=== PATIENT | male | born 1950 | race African-American/Black ===

== ENCOUNTER 2017-07-12 05:48 | Emergency (ER) | payer MEDICARE, OTHER ==
[~2017-07-12] VITALS: Ht 167.6 cm; Wt 77.0 kg
[2017-07-12 07:36] LABS: BASOPHILS % 1.1 % (0.0-2.0); EOSINOPHILS % 3.6 % (0.0-5.0); HEMATOCRIT. 27.1 % (42.0-52.0); HEMOGLOBIN. 8.9 g/dL (14.0-18.0); LYMPHOCYTES % 32.3 % (20.0-50.0); MEAN CORPUSCULAR HEMOGLOBIN 31.7 pg (28.0-32.0); MEAN CORPUSCULAR VOLUME 95.8 fL (80.0-94.0); MEAN PLATELET VOLUME 7.4 fl (7.4-10.4); MONOCYTES % 11.1 % (2.0-8.0); NEUTROPHILS % 51.9 % (40.0-76.0); PLATELET 76 x1000/uL (130-400); RED BLOOD CELL COUNT 2.82 mill/uL (4.7-6.1); RED CELL DISTRIBUTION WIDTH 14.1 % (11.6-14.6)
[2017-07-12 07:43] LABS: CHLORIDE 113 mEq/L (98-107)
[2017-07-12 08:03] LABS: CARBON DIOXIDE 27 mEq/L (21-32)
[2017-07-12 09:03] VITALS: BP 131/69
== END 2017-07-12 09:15 | disposition home or self-care (01) ==
LOC: ER 05:48
DX: S09.8XXA Other specified injuries of head, initial encounter (principal); E11.22 Type 2 diabetes mellitus with diabetic chronic kidney disease; E11.649 Type 2 diabetes mellitus with hypoglycemia without coma; D61.818 Other pancytopenia; I12.9 Hypertensive chronic kidney disease with stage 1 through stage 4 chronic kidney disease, or unspecified chronic kidney disease; N18.9 Chronic kidney disease, unspecified; W18.39XA Other fall on same level, initial encounter; Y93.89 Activity, other specified; Y92.89 Other specified places as the place of occurrence of the external cause; Y99.8 Other external cause status
CPT/HCPCS: 36415; 80053; 82962; 85025; 99284

== ENCOUNTER 2018-08-08 11:18 | Inpatient (IN) | payer MEDICARE, OTHER ==
[~2018-08-08] VITALS: Ht 175.3 cm; Wt 78.0 kg
[~2018-08-08 11:18] MED LIST: ATEN50TA MT; ATOR20TA65 MT; ATROV3 BOTHNSTRLS; BACL-141 MT; CALC1TAB17 MT; ERGO2000 PO; GABA-531 MT; GLIP10TA10 MT; HYDR100T26 MT; LACT10SO6 MT; MORP10CA8 PO; OXYC-515 MT; SOFO1TAB PO; TRAZ-213 MT
[2018-08-08] MEDS ORDERED: SODIUM CHLORIDE 0.9% 1,000 ML IV ONE (11:43)
[2018-08-08 12:31] LABS: CHLORIDE 107 mEq/L (98-107)
[2018-08-08 12:32] LABS: INR 1.1; PROTHROMBIN TIME 11.3 sec (9.1-11.1)
[2018-08-08 12:42] LABS: BASOPHILS % 1.2 % (0.0-2.0); EOSINOPHILS % 12.9 % (0.0-5.0); HEMATOCRIT. 30.1 % (42.0-52.0); HEMOGLOBIN. 9.8 g/dL (14.0-18.0); LYMPHOCYTES % 19.7 % (20.0-50.0); MEAN CORPUSCULAR HEMOGLOBIN 32.5 pg (28.0-32.0); MEAN CORPUSCULAR VOLUME 99.7 fL (80.0-94.0); MEAN PLATELET VOLUME 8.6 fl (7.4-10.4); MONOCYTES % 6.8 % (2.0-8.0); NEUTROPHILS % 59.4 % (40.0-76.0); PLATELET 64 x1000/uL (130-400); RED BLOOD CELL COUNT 3.01 mill/uL (4.7-6.1); RED CELL DISTRIBUTION WIDTH 17.4 % (11.6-14.6)
[2018-08-08 13:09] LABS: CLARITY URINE CLEAR (CLEAR); COLOR URINE YELLOW (YELLOW); KETONES URINE NEGATIVE (NEGATIVE); LEUKOCYTE ESTERASE URINE NEGATIVE (NEGATIVE); NITRITE URINE NEGATIVE (NEGATIVE); OCCULT BLOOD URINE NEGATIVE (NEGATIVE); PROTEIN URINE 2+ (NEGATIVE); SPECIFIC GRAVITY URINE 1.013 (1.005-1.030)
[2018-08-08] MEDS ORDERED: PIPERACILLIN/TAZ 3.375G PREMIX 50 ML IV ONE (13:30)
[2018-08-08] MEDS ORDERED: VANCOMYCIN 1 G PREMIX 200 ML IV ONE (13:30)
[2018-08-08 16:00] VITALS: BP 168/83
[2018-08-08 16:01] VITALS: BP 168/83
[2018-08-08] MEDS ORDERED: CLON0.1T PO (16:30)
[2018-08-08] MEDS ORDERED: METO-539 PO (16:30)
[2018-08-08] MEDS ORDERED: CYAN500T47 MT (16:30)
[2018-08-08 18:00] VITALS: BP 162/84
[2018-08-08] MEDS ORDERED: GUAIFENESIN 200MG/10ML SUGAR FREE UDC PO PRN (18:15)
[2018-08-08] MEDS ORDERED: PIPERACILLIN/TAZ 3.375G PREMIX 50 ML IV SCH (18:15)
[2018-08-08] MEDS ORDERED: ACETAMINOPHEN 325MG TABLET PO PRN (18:15)
[2018-08-08] MEDS ORDERED: DIPHENHYDRAMINE 50MG/ML VIAL IV PRN (18:15)
[2018-08-08] MEDS ORDERED: MAGNESIUM/ALUMINUM HYDROXIDE/SIMETHICONE 30ML UDC PO PRN (18:15)
[2018-08-08] MEDS ORDERED: DEXTROSE 50% WATER 50ML SYRINGE IV PRN (18:15)
[2018-08-08] MEDS ORDERED: DOCUSATE SODIUM 100MG CAPSULE PO PRN (18:15)
[2018-08-08] MEDS ORDERED: IPRATROPIUM/ALBUTEROL 0.5-3(2.5)MG/3ML NEB INH PRN (18:15)
[2018-08-08] MEDS ORDERED: ONDANSETRON HCL 4MG/2ML INJ IV PRN (18:15)
[2018-08-08] MEDS ORDERED: ENOXAPARIN 40MG/0.4ML SYR SUBCUT SCH (18:15)
[2018-08-08 20:00] VITALS: BP 162/77
[2018-08-08] MEDS ORDERED: ENOXAPARIN 30MG/0.3ML SYR SUBCUT SCH (21:00)
[2018-08-08 22:00] VITALS: BP 188/82
[2018-08-08] MEDS: CLONIDINE 0.1MG TABLET PO PRN (22:24)
[2018-08-08] MEDS: INSULIN LISPRO 100 UNITS/ML SUBCUT SCH (22:35)
[2018-08-08] MEDS: BLOOD SUGAR DIAGNOSTIC STRIP TEST SCH (22:35)
[2018-08-08] MEDS: PIPERACILLIN/TAZ 2.25G PREMIX 50 ML IV SCH (22:52)
[2018-08-08] MEDS: SODIUM CHLORIDE 0.9% INJ 3ML FLUSH IVF SCH (22:52)
[2018-08-09] VITALS (11 sets, daily range): BP systolic 109–167; BP diastolic 52–96
[2018-08-09 00:06] LABS: CREATINE KINASE MB FRACTION 2.1 ng/mL (0.5-3.6)
[2018-08-09 06:04] LABS: HEMATOCRIT. 27.1 % (42.0-52.0); HEMOGLOBIN. 8.9 g/dL (14.0-18.0); MEAN CORPUSCULAR HEMOGLOBIN 32.2 pg (28.0-32.0); MEAN CORPUSCULAR VOLUME 98.8 fL (80.0-94.0); MEAN PLATELET VOLUME 8.4 fl (7.4-10.4); PLATELET 57 x1000/uL (130-400); RED BLOOD CELL COUNT 2.75 mill/uL (4.7-6.1); RED CELL DISTRIBUTION WIDTH 17.5 % (11.6-14.6)
[2018-08-09 06:20] LABS: CHLORIDE 109 mEq/L (98-107)
[2018-08-09 06:29] LABS: LDL CHOLESTEROL 38 mg/dL (5-100)
[2018-08-09 06:31] LABS: CREATINE KINASE 79 IU/L (39-308); CREATINE KINASE MB FRACTION 2.2 ng/mL (0.5-3.6); T4 FREE 1.03 ng/dL (0.76-1.46)
[2018-08-09 06:32] LABS: HDL CHOLESTEROL 34 mg/dL (40-59)
[2018-08-09] MEDS: PIPERACILLIN/TAZ 2.25G PREMIX 50 ML IV SCH ×3 (07:14→21:27)
[2018-08-09] MEDS: SODIUM CHLORIDE 0.9% INJ 3ML FLUSH IVF SCH ×3 (07:15→21:27)
[2018-08-09] MEDS: INSULIN LISPRO 100 UNITS/ML SUBCUT SCH ×4 (07:44→21:52)
[2018-08-09] MEDS: BLOOD SUGAR DIAGNOSTIC STRIP TEST SCH ×4 (07:44→21:00)
[2018-08-09 08:06] LABS: PLATELET ESTIMATE DECREASED
[2018-08-09] MEDS ORDERED: ASPIRIN 81MG EC TABLET PO SCH (09:00)
[2018-08-09 11:59] LABS: T4 FREE 1.04 ng/dL (0.76-1.46)
[2018-08-09] MEDS: LORAZEPAM 2MG/ML CPJ IV PRN (12:50)
[2018-08-09] MEDS: HYDROMORPHONE HCL/PF 2MG/ML CPJ IV PRN (13:34)
[2018-08-09] MEDS ORDERED: VANCOMYCIN 1 G PREMIX 200 ML IV SCH (15:00)
[2018-08-09] MEDS ORDERED: METHYLPREDNISOLONE SOD SUCC 125 MG/2 ML VIAL IV NR (16:00)
[2018-08-09] MEDS ORDERED: DIATR MEGLU/DIATRIZOATE SOLN 30ML PO NR (16:00)
[2018-08-09 16:45] LABS: CREATINE KINASE MB FRACTION 3.1 ng/mL (0.5-3.6)
[2018-08-09] MEDS: HYDROCODONE/ACETAMINOPHEN 10/325MG TABLET PO PRN (21:27)
[2018-08-09] MEDS: ENOXAPARIN 80MG/0.8ML SYR SUBCUT SCH (22:09)
[2018-08-10] VITALS (10 sets, daily range): BP systolic 129–186; BP diastolic 65–118
[2018-08-10] LABS: CREATINE KINASE 153 IU/L (39-308)
[2018-08-10] MEDS: LORAZEPAM 2MG/ML CPJ IV PRN ×2 (00:02→21:31)
[2018-08-10] MEDS: HYDROMORPHONE HCL/PF 2MG/ML CPJ IV PRN ×2 (06:21→15:19)
[2018-08-10] MEDS: PIPERACILLIN/TAZ 2.25G PREMIX 50 ML IV SCH ×3 (06:21→21:32)
[2018-08-10] MEDS: SODIUM CHLORIDE 0.9% INJ 3ML FLUSH IVF SCH ×3 (06:21→21:32)
[2018-08-10 07:12] LABS: CHLORIDE 103 mEq/L (98-107)
[2018-08-10 07:17] LABS: BASOPHILS % 0.3 % (0.0-2.0); EOSINOPHILS % 0.4 % (0.0-5.0); HEMATOCRIT. 32.4 % (42.0-52.0); HEMOGLOBIN. 10.7 g/dL (14.0-18.0); LYMPHOCYTES % 17.3 % (20.0-50.0); MEAN CORPUSCULAR HEMOGLOBIN 32.7 pg (28.0-32.0); MEAN CORPUSCULAR VOLUME 98.6 fL (80.0-94.0); MEAN PLATELET VOLUME 8.3 fl (7.4-10.4); MONOCYTES % 1.8 % (2.0-8.0); NEUTROPHILS % 80.2 % (40.0-76.0); PLATELET 59 x1000/uL (130-400); RED BLOOD CELL COUNT 3.28 mill/uL (4.7-6.1); RED CELL DISTRIBUTION WIDTH 17.3 % (11.6-14.6)
[2018-08-10] MEDS: BLOOD SUGAR DIAGNOSTIC STRIP TEST SCH ×4 (07:30→21:00)
[2018-08-10 07:32] LABS: CREATINE KINASE 126 IU/L (39-308)
[2018-08-10 07:35] LABS: CREATINE KINASE MB FRACTION 2.6 ng/mL (0.5-3.6)
[2018-08-10] MEDS: INSULIN LISPRO 100 UNITS/ML SUBCUT SCH ×4 (08:18→22:13)
[2018-08-10] MEDS: NIFEDIPINE XL 30MG TAB PO SCH (10:03)
[2018-08-10] MEDS: HYDROCODONE/ACETAMINOPHEN 10/325MG TABLET PO PRN ×2 (11:15→19:18)
[2018-08-10] MEDS ORDERED: HYDRALAZINE HCL 25MG TABLET PO SCH (14:00)
[2018-08-10 14:04] LABS: *AMPHETAMINES SCREEN URINE NEGATIVE (NEGATIVE); *BARBITURATES SCREEN URINE NEGATIVE (NEGATIVE); *BENZODIAZEPINES SCREEN URINE NEGATIVE (NEGATIVE); *COCAINE SCREEN URINE NEGATIVE (NEGATIVE); METHADONE URINE SCREEN NEGATIVE (NEGATIVE)
[2018-08-10 14:05] LABS: CANNABINOID URINE SCREEN NEGATIVE (NEGATIVE); OPIATES URINE SCREEN PRESUMTIVE POSITIVE (NEGATIVE); PHENCYCLIDINE URINE SCREEN NEGATIVE (NEGATIVE)
[2018-08-10] MEDS: HYDRALAZINE HCL 50MG TABLET PO SCH (21:31)
[2018-08-10] MEDS: ENOXAPARIN 80MG/0.8ML SYR SUBCUT SCH (21:31)
[2018-08-11] VITALS: BP 111/50
[2018-08-11] MEDS: LORAZEPAM 2MG/ML CPJ IV PRN ×2 (01:48→21:19)
[2018-08-11 04:00] VITALS: BP 112/52
[2018-08-11] MEDS: SODIUM CHLORIDE 0.9% INJ 3ML FLUSH IVF SCH ×3 (05:14→21:18)
[2018-08-11 05:55] LABS: BASOPHILS % 0.8 % (0.0-2.0); EOSINOPHILS % 3.2 % (0.0-5.0); HEMATOCRIT. 26.2 % (42.0-52.0); HEMOGLOBIN. 8.5 g/dL (14.0-18.0); LYMPHOCYTES % 27.1 % (20.0-50.0); MEAN CORPUSCULAR HEMOGLOBIN 32.1 pg (28.0-32.0); MEAN CORPUSCULAR VOLUME 98.9 fL (80.0-94.0); MEAN PLATELET VOLUME 8.1 fl (7.4-10.4); MONOCYTES % 7.6 % (2.0-8.0); NEUTROPHILS % 61.3 % (40.0-76.0); PLATELET 55 x1000/uL (130-400); RED BLOOD CELL COUNT 2.65 mill/uL (4.7-6.1); RED CELL DISTRIBUTION WIDTH 17.4 % (11.6-14.6)
[2018-08-11] MEDS: HYDRALAZINE HCL 50MG TABLET PO SCH ×3 (06:00→21:18)
[2018-08-11] MEDS: PIPERACILLIN/TAZ 2.25G PREMIX 50 ML IV SCH ×3 (06:06→21:18)
[2018-08-11 08:00] VITALS: BP 134/66
[2018-08-11] MEDS: INSULIN LISPRO 100 UNITS/ML SUBCUT SCH ×4 (08:00→21:19)
[2018-08-11] MEDS: BLOOD SUGAR DIAGNOSTIC STRIP TEST SCH ×4 (08:05→21:18)
[2018-08-11] MEDS: NIFEDIPINE XL 30MG TAB PO SCH (08:10)
[2018-08-11] MEDS: HYDROCODONE/ACETAMINOPHEN 10/325MG TABLET PO PRN (08:15)
[2018-08-11 12:00] VITALS: BP 144/80
[2018-08-11] MEDS: HYDROMORPHONE HCL/PF 2MG/ML CPJ IV PRN ×2 (12:27→18:00)
[2018-08-11 16:00] VITALS: BP 165/81
[2018-08-11] MEDS ORDERED: VANCOMYCIN 1 G PREMIX 200 ML IV NR (18:00)
[2018-08-11 20:00] VITALS: BP 185/67
[2018-08-11] MEDS: ENOXAPARIN 80MG/0.8ML SYR SUBCUT SCH (21:18)
[2018-08-12] VITALS: BP 124/58
[2018-08-12 04:00] VITALS: BP 162/92
[2018-08-12] MEDS: HYDROMORPHONE HCL/PF 2MG/ML CPJ IV PRN ×3 (04:54→15:15)
[2018-08-12] MEDS: HYDRALAZINE HCL 50MG TABLET PO SCH (05:58)
[2018-08-12] MEDS: SODIUM CHLORIDE 0.9% INJ 3ML FLUSH IVF SCH ×3 (05:58→22:31)
[2018-08-12] MEDS: PIPERACILLIN/TAZ 2.25G PREMIX 50 ML IV SCH ×3 (05:58→22:31)
[2018-08-12] MEDS: BLOOD SUGAR DIAGNOSTIC STRIP TEST SCH ×4 (07:30→21:00)
[2018-08-12 08:00] VITALS: BP 143/68
[2018-08-12] MEDS: INSULIN LISPRO 100 UNITS/ML SUBCUT SCH ×4 (08:00→21:00)
[2018-08-12] MEDS: NIFEDIPINE XL 30MG TAB PO SCH (10:04)
[2018-08-12 12:00] VITALS: BP 176/76
[2018-08-12] MEDS: HYDRALAZINE 20MG/ML VIAL IV PRN (13:28)
[2018-08-12] MEDS: HYDRALAZINE HCL 25MG TABLET PO SCH ×2 (15:14→22:32)
[2018-08-12 15:35] VITALS: BP 146/63
[2018-08-12 22:00] VITALS: BP 159/59
[2018-08-12] MEDS: LORAZEPAM 2MG/ML CPJ IV PRN (22:32)
[2018-08-12] MEDS: ENOXAPARIN 80MG/0.8ML SYR SUBCUT SCH (22:32)
[2018-08-13] VITALS: BP 145/56
[2018-08-13] MEDS: HYDROMORPHONE HCL/PF 2MG/ML CPJ IV PRN ×3 (00:27→09:14)
[2018-08-13 04:00] VITALS: BP 144/61
[2018-08-13] MEDS: HYDRALAZINE HCL 25MG TABLET PO SCH ×2 (05:06→13:04)
[2018-08-13] MEDS: PIPERACILLIN/TAZ 2.25G PREMIX 50 ML IV SCH ×3 (05:06→22:01)
[2018-08-13] MEDS: SODIUM CHLORIDE 0.9% INJ 3ML FLUSH IVF SCH ×3 (05:06→22:01)
[2018-08-13] MEDS: INSULIN LISPRO 100 UNITS/ML SUBCUT SCH ×4 (06:34→21:00)
[2018-08-13] MEDS: BLOOD SUGAR DIAGNOSTIC STRIP TEST SCH ×4 (06:34→21:56)
[2018-08-13 07:49] LABS: BASOPHILS % 1.1 % (0.0-2.0); EOSINOPHILS % 11.4 % (0.0-5.0); HEMATOCRIT. 31.9 % (42.0-52.0); HEMOGLOBIN. 10.3 g/dL (14.0-18.0); LYMPHOCYTES % 33.3 % (20.0-50.0); MEAN CORPUSCULAR VOLUME 99.1 fL (80.0-94.0); MEAN PLATELET VOLUME 9.6 fl (7.4-10.4); MONOCYTES % 7.7 % (2.0-8.0); NEUTROPHILS % 46.5 % (40.0-76.0); PLATELET 100 x1000/uL (130-400); RED BLOOD CELL COUNT 3.22 mill/uL (4.7-6.1); RED CELL DISTRIBUTION WIDTH 17.9 % (11.6-14.6)
[2018-08-13 08:00] VITALS: BP 114/68
[2018-08-13] MEDS: NIFEDIPINE XL 30MG TAB PO SCH (09:10)
[2018-08-13] MEDS: LORAZEPAM 2MG/ML CPJ IV PRN (11:39)
[2018-08-13 12:00] VITALS: BP 166/101
[2018-08-13 16:00] VITALS: BP 143/62
[2018-08-13 20:00] VITALS: BP 157/67
[2018-08-13] MEDS ORDERED: VANCOMYCIN 1 G PREMIX 200 ML IV SCH (21:00)
[2018-08-13] MEDS: ENOXAPARIN 80MG/0.8ML SYR SUBCUT SCH (22:01)
[2018-08-14] VITALS: BP 167/80
[2018-08-14] MEDS: HYDRALAZINE HCL 25MG TABLET PO SCH ×4 (00:24→21:07)
[2018-08-14 04:00] VITALS: BP 149/81
[2018-08-14] MEDS: PIPERACILLIN/TAZ 2.25G PREMIX 50 ML IV SCH ×3 (06:04→21:07)
[2018-08-14] MEDS: SODIUM CHLORIDE 0.9% INJ 3ML FLUSH IVF SCH ×3 (06:04→21:07)
[2018-08-14] MEDS: BLOOD SUGAR DIAGNOSTIC STRIP TEST SCH ×4 (06:14→21:23)
[2018-08-14] MEDS: INSULIN LISPRO 100 UNITS/ML SUBCUT SCH ×4 (06:14→21:00)
[2018-08-14 08:00] VITALS: BP 195/82
[2018-08-14] MEDS: NIFEDIPINE XL 30MG TAB PO SCH (09:00)
[2018-08-14] MEDS: LORAZEPAM 2MG/ML CPJ IV PRN (10:55)
[2018-08-14 12:00] VITALS: BP 211/77
[2018-08-14] MEDS: HYDRALAZINE 20MG/ML VIAL IV PRN (12:57)
[2018-08-14 15:16] VITALS: BP 167/67
[2018-08-14 20:00] VITALS: BP 182/53
[2018-08-14] MEDS ORDERED: VANCOMYCIN 1 G PREMIX 200 ML IV NR (21:00)
[2018-08-14] MEDS: ENOXAPARIN 80MG/0.8ML SYR SUBCUT SCH (21:07)
[2018-08-15] VITALS: BP 181/52
[2018-08-15] MEDS: HYDRALAZINE 20MG/ML VIAL IV PRN (00:58)
[2018-08-15 04:00] VITALS: BP 179/151
[2018-08-15] MEDS: PIPERACILLIN/TAZ 2.25G PREMIX 50 ML IV SCH ×3 (05:55→21:16)
[2018-08-15] MEDS: SODIUM CHLORIDE 0.9% INJ 3ML FLUSH IVF SCH ×3 (05:56→21:37)
[2018-08-15] MEDS: HYDRALAZINE HCL 25MG TABLET PO SCH ×3 (05:56→21:15)
[2018-08-15] MEDS: BLOOD SUGAR DIAGNOSTIC STRIP TEST SCH ×4 (06:35→21:22)
[2018-08-15] MEDS: INSULIN LISPRO 100 UNITS/ML SUBCUT SCH ×4 (06:35→21:29)
[2018-08-15 08:00] VITALS: BP 197/88
[2018-08-15] MEDS: NIFEDIPINE XL 30MG TAB PO SCH (09:00)
[2018-08-15 11:44] LABS: BASOPHILS % 1.1 % (0.0-2.0); EOSINOPHILS % 0.3 % (0.0-5.0); HEMATOCRIT. 29.7 % (42.0-52.0); HEMOGLOBIN. 10.1 g/dL (14.0-18.0); LYMPHOCYTES % 17.4 % (20.0-50.0); MEAN CORPUSCULAR HEMOGLOBIN 33.5 pg (28.0-32.0); MEAN CORPUSCULAR VOLUME 98.8 fL (80.0-94.0); MEAN PLATELET VOLUME 7.8 fl (7.4-10.4); MONOCYTES % 7.2 % (2.0-8.0); PLATELET 81 x1000/uL (130-400); RED BLOOD CELL COUNT 3.01 mill/uL (4.7-6.1); RED CELL DISTRIBUTION WIDTH 18.2 % (11.6-14.6)
[2018-08-15 12:00] VITALS: BP 167/89
[2018-08-15] MEDS ORDERED: HEPARIN SODIUM 1,000 UNIT/1ML VIAL IV SCH (12:00)
[2018-08-15 16:06] VITALS: BP 206/79
[2018-08-15] MEDS ORDERED: MULTIVITAMINS,THER W-MINERALS TABLET PO SCH (16:15)
[2018-08-15] MEDS ORDERED: ZINC SULFATE 220 MG ( 50 ) CAPSULE PO SCH (16:15)
[2018-08-15] MEDS: THIAMINE HCL 100MG TABLET PO SCH (16:40)
[2018-08-15 20:44] VITALS: BP 187/77
[2018-08-15] MEDS ORDERED: ASCORBIC ACID 250 MG TABLET PO SCH (21:00)
[2018-08-15] MEDS: CLONIDINE 0.1MG TABLET PO PRN (21:15)
[2018-08-15] MEDS: LORAZEPAM 2MG/ML CPJ IV PRN (21:15)
[2018-08-15] MEDS: ENOXAPARIN 80MG/0.8ML SYR SUBCUT SCH (21:16)
[2018-08-16 00:21] VITALS: BP 141/56
[2018-08-16] MEDS: LORAZEPAM 2MG/ML CPJ IV PRN ×2 (02:49→09:36)
[2018-08-16 04:00] VITALS: BP 164/51
[2018-08-16] MEDS: HYDRALAZINE HCL 25MG TABLET PO SCH (06:20)
[2018-08-16] MEDS: BLOOD SUGAR DIAGNOSTIC STRIP TEST SCH (06:59)
[2018-08-16] MEDS: SODIUM CHLORIDE 0.9% INJ 3ML FLUSH IVF SCH (06:59)
[2018-08-16] MEDS: INSULIN LISPRO 100 UNITS/ML SUBCUT SCH (07:40)
[2018-08-16 08:00] VITALS: BP 160/56
[2018-08-16] MEDS: THIAMINE HCL 100MG TABLET PO SCH (08:33)
[2018-08-16] MEDS: NIFEDIPINE XL 30MG TAB PO SCH (08:34)
[2018-08-16 09:02] VITALS: BP 145/56
== END 2018-08-16 11:00 | disposition home or self-care (01) | DRG 91 ==
LOC: ER 11:47 → 5EST 13:44 → EDBEDREQ 13:48 → ENRESERV 14:06 → 5EST 08-10 07:45 → 8WST 08-12 22:20
PROVIDERS: ADMIT Internal Medicine; ATTEND Internal Medicine
PROC: 5A1D70Z Performance of Urinary Filtration, Intermittent, Less than 6 Hours Per Day (ICD-10-PCS; principal; 2018-08-08)
PROC: 5A1D70Z Performance of Urinary Filtration, Intermittent, Less than 6 Hours Per Day (ICD-10-PCS; 2018-08-11)
PROC: 5A1D70Z Performance of Urinary Filtration, Intermittent, Less than 6 Hours Per Day (ICD-10-PCS; 2018-08-13)
PROC: 5A1D70Z Performance of Urinary Filtration, Intermittent, Less than 6 Hours Per Day (ICD-10-PCS; 2018-08-15)
DX: G92 Toxic encephalopathy (principal); J96.00 Acute respiratory failure, unspecified whether with hypoxia or hypercapnia; N18.6 End stage renal disease; I12.0 Hypertensive chronic kidney disease with stage 5 chronic kidney disease or end stage renal disease; E46 Unspecified protein-calorie malnutrition; D61.818 Other pancytopenia; E87.70 Fluid overload, unspecified; E87.5 Hyperkalemia; K74.60 Unspecified cirrhosis of liver; B19.20 Unspecified viral hepatitis C without hepatic coma; D72.1 Eosinophilia; M75.02 Adhesive capsulitis of left shoulder; E11.22 Type 2 diabetes mellitus with diabetic chronic kidney disease; E11.65 Type 2 diabetes mellitus with hyperglycemia; E11.69 Type 2 diabetes mellitus with other specified complication; F32.9 Major depressive disorder, single episode, unspecified; H40.9 Unspecified glaucoma; M17.0 Bilateral primary osteoarthritis of knee; Z99.2 Dependence on renal dialysis; Z79.84 Long term (current) use of oral hypoglycemic drugs; Z68.25 Body mass index [BMI] 25.0-25.9, adult; Z79.899 Other long term (current) drug therapy; Z98.1 Arthrodesis status
CPT/HCPCS: 36415; 70551; 71045; 74176; 76700; 80048; 80061; 80202; 80305; 82105; 82140; 82550; 82553; 82962; 83036; 83605; 83880; 84145; 84153; 84439; 84443; 84484; 85379; 86850; 86900; 87804; 93005; 93306; 93970; 96361; 96365; 96366; 96367; 97162; 97530; 99291; J0360; J1170; J1200; J1644; J1650; J1815; J2060; J2405; J2543; J2930; J3370; J7030; J7050; Q9963; G0103

== ENCOUNTER 2018-10-03 15:43 | Inpatient (IN) | payer OTHER, MEDICARE ==
[~2018-10-03] VITALS: Ht 175.3 cm; Wt 73.5 kg
[~2018-10-03 15:43] MED LIST changes: -ATEN50TA MT; -ATOR20TA65 MT; -BACL-141 MT; +BACL-141 PO; +CLON0.1T PO; +CYAN500T47 MT; -GABA-531 MT; +GABA-531 PO; -GLIP10TA10 MT; +GLIP10TA10 PO; -HYDR100T26 MT; +HYDR100T26 PO; +METO-539 PO; -TRAZ-213 MT; +TRAZ-213 PO
[2018-10-03] MEDS ORDERED: ACETAMINOPHEN 325MG TABLET PO STA (16:16)
[2018-10-03] MEDS ORDERED: SODIUM CHLORIDE 0.9% 1000ML BAG (SEPSIS BOLUS) IV ONE (16:30)
[2018-10-03] MEDS ORDERED: PIPERACILLIN/TAZ 3.375G PREMIX 50 ML IV ONE (16:30)
[2018-10-03] MEDS ORDERED: VANCOMYCIN 1 G PREMIX 200 ML IV ONE (16:30)
[2018-10-03 16:40] LABS: HEMATOCRIT. 31.2 % (42.0-52.0); HEMOGLOBIN. 10.4 g/dL (14.0-18.0); MEAN CORPUSCULAR VOLUME 98.9 fL (80.0-94.0); MEAN PLATELET VOLUME 9.8 fl (7.4-10.4); PLATELET 71 x1000/uL (130-400); RED BLOOD CELL COUNT 3.16 mill/uL (4.7-6.1); RED CELL DISTRIBUTION WIDTH 15.9 % (11.6-14.6)
[2018-10-03 16:43] LABS: CHLORIDE 97 mEq/L (98-107)
[2018-10-03 16:45] LABS: INR 1.3; PROTHROMBIN TIME 13.4 sec (9.6-11.0)
[2018-10-03 16:58] LABS: PLATELET ESTIMATE DECREASED
[2018-10-03] MEDS ORDERED: HYDROCODONE/ACETAMINOPHEN 5/325MG TABLET PO ONE (17:30)
[2018-10-03] MEDS ORDERED: ACETAMINOPHEN 325MG TABLET PO PRN (17:45)
[2018-10-03] MEDS ORDERED: IPRATROPIUM/ALBUTEROL 0.5-3(2.5)MG/3ML NEB INH PRN (17:45)
[2018-10-03] MEDS ORDERED: MAGNESIUM/ALUMINUM HYDROXIDE/SIMETHICONE 30ML UDC PO PRN (17:45)
[2018-10-03] MEDS ORDERED: GUAIFENESIN 200MG/10ML SUGAR FREE UDC PO PRN (17:45)
[2018-10-03] MEDS ORDERED: NITROGLYCERIN 0.4MG TABLET SL SL PRN (17:45)
[2018-10-03] MEDS ORDERED: ONDANSETRON HCL 4MG/2ML INJ IV PRN (17:45)
[2018-10-03] MEDS ORDERED: DOCUSATE SODIUM 100MG CAPSULE PO PRN (17:45)
[2018-10-03] MEDS ORDERED: ENOXAPARIN 40MG/0.4ML SYR SUBCUT SCH (17:45)
[2018-10-03] MEDS ORDERED: DEXTROSE 50% WATER 50ML SYRINGE IV PRN (17:45)
[2018-10-03] MEDS ORDERED: CLONIDINE 0.1MG TABLET PO PRN (17:45)
[2018-10-03] MEDS ORDERED: DIPHENHYDRAMINE 50MG/ML VIAL IV PRN (17:45)
[2018-10-03 17:59] LABS: T4 FREE 1.24 ng/dL (0.76-1.46)
[2018-10-03] MEDS ORDERED: INSULIN LISPRO 100 UNITS/ML SUBCUT SCH (18:20)
[2018-10-03] MEDS ORDERED: ZOLPIDEM TARTRATE 5MG TABLET PO PRN (21:00)
[2018-10-03] MEDS: TRAMADOL 50MG TABLET PO PRN (21:10)
[2018-10-03 21:40] VITALS: BP 131/51
[2018-10-03] MEDS: FAMOTIDINE 20MG TABLET PO SCH (22:53)
[2018-10-03] MEDS: BLOOD SUGAR DIAGNOSTIC STRIP TEST SCH (22:54)
[2018-10-03] MEDS: INSULIN LISPRO 100 UNITS/ML SUBCUT SCH (22:57)
[2018-10-03] MEDS: MORPHINE SULFATE 4 MG/ML CPJ (NOT FOR IM USE) IV PRN (23:07)
[2018-10-04] MEDS: PIPERACILLIN/TAZ 2.25G PREMIX 50 ML IV SCH ×3 (02:46→22:13)
[2018-10-04 04:00] VITALS: BP 129/58
[2018-10-04] MEDS: BLOOD SUGAR DIAGNOSTIC STRIP TEST SCH ×4 (07:58→21:00)
[2018-10-04] MEDS: INSULIN LISPRO 100 UNITS/ML SUBCUT SCH ×4 (07:58→21:00)
[2018-10-04] MEDS: FOLIC ACID/VITAMIN B COMP W-C TABLET PO SCH (09:20)
[2018-10-04] MEDS: TRAMADOL 50MG TABLET PO PRN (09:21)
[2018-10-04] MEDS: SEVELAMER CARBONATE 800 MG TABLET PO SCH ×3 (09:22→17:42)
[2018-10-04] MEDS: ASPIRIN 325MG EC TABLET PO SCH (09:28)
[2018-10-04] MEDS: ZINC SULFATE 220 MG ( 50 ) CAPSULE PO SCH (09:29)
[2018-10-04] MEDS ORDERED: VANCOMYCIN 1 G PREMIX 200 ML IV SCH (10:00)
[2018-10-04 12:00] VITALS: BP 128/61
[2018-10-04 16:00] VITALS: BP 124/65
[2018-10-04 20:00] VITALS: BP 123/50
[2018-10-04 20:03] VITALS: BP 123/50
[2018-10-04] MEDS: FAMOTIDINE 20MG TABLET PO SCH (22:13)
[2018-10-04] MEDS: MORPHINE SULFATE 4 MG/ML CPJ (NOT FOR IM USE) IV PRN (22:14)
[2018-10-05] VITALS: BP 151/74
[2018-10-05 04:00] VITALS: BP 153/68
[2018-10-05] MEDS: PIPERACILLIN/TAZ 2.25G PREMIX 50 ML IV SCH ×2 (04:48→20:57)
[2018-10-05] MEDS: BLOOD SUGAR DIAGNOSTIC STRIP TEST SCH ×4 (06:07→20:56)
[2018-10-05 08:00] VITALS: BP 139/56
[2018-10-05] MEDS: INSULIN LISPRO 100 UNITS/ML SUBCUT SCH ×4 (08:10→20:56)
[2018-10-05 08:12] LABS: HEMATOCRIT. 28.1 % (42.0-52.0); HEMOGLOBIN. 9.5 g/dL (14.0-18.0); MEAN CORPUSCULAR HEMOGLOBIN 33.2 pg (28.0-32.0); MEAN CORPUSCULAR VOLUME 98.3 fL (80.0-94.0); MEAN PLATELET VOLUME 8.7 fl (7.4-10.4); PLATELET 55 x1000/uL (130-400); RED BLOOD CELL COUNT 2.85 mill/uL (4.7-6.1); RED CELL DISTRIBUTION WIDTH 16.1 % (11.6-14.6)
[2018-10-05 08:25] LABS: PHOSPHORUS 4.1 mg/dL (2.5-4.9)
[2018-10-05] MEDS: ZINC SULFATE 220 MG ( 50 ) CAPSULE PO SCH (08:49)
[2018-10-05] MEDS: ASPIRIN 325MG EC TABLET PO SCH (08:49)
[2018-10-05] MEDS: FOLIC ACID/VITAMIN B COMP W-C TABLET PO SCH (08:49)
[2018-10-05] MEDS: SEVELAMER CARBONATE 800 MG TABLET PO SCH ×3 (08:49→17:56)
[2018-10-05 12:00] VITALS: BP 129/64
[2018-10-05 14:12] LABS: PLATELET ESTIMATE DECREASED
[2018-10-05 16:00] VITALS: BP 146/50
[2018-10-05 20:07] VITALS: BP 164/69
[2018-10-05] MEDS: FAMOTIDINE 20MG TABLET PO SCH (20:57)
[2018-10-05] MEDS: TRAMADOL 50MG TABLET PO PRN (23:51)
[2018-10-06] VITALS: BP 132/55
[2018-10-06] MEDS: OXYCODONE HCL/ACETAMINOPHEN 5/325MG TABLET PO PRN ×2 (00:48→08:26)
[2018-10-06] MEDS: BLOOD SUGAR DIAGNOSTIC STRIP TEST SCH ×2 (06:17→12:16)
[2018-10-06 08:00] VITALS: BP 152/61
[2018-10-06] MEDS: ZINC SULFATE 220 MG ( 50 ) CAPSULE PO SCH (08:19)
[2018-10-06] MEDS: SEVELAMER CARBONATE 800 MG TABLET PO SCH ×2 (08:19→13:06)
[2018-10-06] MEDS: FOLIC ACID/VITAMIN B COMP W-C TABLET PO SCH (08:19)
[2018-10-06] MEDS: ASPIRIN 325MG EC TABLET PO SCH (08:25)
[2018-10-06] MEDS: INSULIN LISPRO 100 UNITS/ML SUBCUT SCH ×2 (08:40→13:11)
[2018-10-06] MEDS: PIPERACILLIN/TAZ 2.25G PREMIX 50 ML IV SCH (09:00)
[2018-10-06] MEDS ORDERED: LIDOCAINE HCL 1% 20ML VIAL (Pyxis) INJ ONE (09:37)
[2018-10-06] MEDS ORDERED: IOHEXOL-300 100 ML BOTTLE ONE (11:27)
[2018-10-06] MEDS: LEVOFLOXACIN 250MG PREMIX 50 ML IV SCH ×2 (12:00→13:29)
[2018-10-06 12:10] VITALS: BP 141/102
[2018-10-06] MEDS: MORPHINE SULFATE 4 MG/ML CPJ (NOT FOR IM USE) IV PRN (12:16)
[2018-10-06 13:36] VITALS: BP 133/80
[2018-10-06 16:00] VITALS: BP 141/95
[2018-10-06] MEDS ORDERED: VANCOMYCIN 1 G PREMIX 200 ML IV NR (21:00)
== END 2018-10-06 15:47 | disposition home or self-care (01) | DRG 871 ==
LOC: ER 15:59 → 7WST 16:33 → SUPCPDRO 17:30 → EDBEDREQ 17:31 → EDBEDREQSVC 17:31 → ENRESERV 20:55
PROVIDERS: ADMIT Internal Medicine Nephrology; ATTEND Internal Medicine Nephrology
PROC: 5A1D70Z Performance of Urinary Filtration, Intermittent, Less than 6 Hours Per Day (ICD-10-PCS; principal; 2018-10-05)
PROC: 02HV33Z Insertion of Infusion Device into Superior Vena Cava, Percutaneous Approach (ICD-10-PCS; 2018-10-06)
PROC: B548ZZA Ultrasonography of Superior Vena Cava, Guidance (ICD-10-PCS; 2018-10-06)
DX: A41.9 Sepsis, unspecified organism (principal); N18.6 End stage renal disease; G92 Toxic encephalopathy; E44.0 Moderate protein-calorie malnutrition; E87.1 Hypo-osmolality and hyponatremia; I13.11 Hypertensive heart and chronic kidney disease without heart failure, with stage 5 chronic kidney disease, or end stage renal disease; M86.68 Other chronic osteomyelitis, other site; R65.20 Severe sepsis without septic shock; D63.8 Anemia in other chronic diseases classified elsewhere; E11.22 Type 2 diabetes mellitus with diabetic chronic kidney disease; E11.69 Type 2 diabetes mellitus with other specified complication; E78.00 Pure hypercholesterolemia, unspecified; E83.51 Hypocalcemia; E87.6 Hypokalemia; K72.90 Hepatic failure, unspecified without coma; R16.0 Hepatomegaly, not elsewhere classified; B19.20 Unspecified viral hepatitis C without hepatic coma; Z99.2 Dependence on renal dialysis; Z68.23 Body mass index [BMI] 23.0-23.9, adult
CPT/HCPCS: 36415; 36569; 36573; 71045; 73560; 74178; 80048; 80202; 82140; 82270; 82962; 83036; 83605; 83735; 84100; 84153; 84439; 84443; 84484; 86304; 87077; 87186; 93005; 93306; 93970; 99291; C1725; C1893; J1815; J1956; J2270; J2543; J3370; J3490; J7030; J7040; Q9967; G0103

== ENCOUNTER 2018-10-24 12:57 | Inpatient (IN) | payer OTHER, MEDICARE ==
[~2018-10-24] VITALS: Ht 172.7 cm; Wt 79.4 kg
[2018-10-24 14:47] LABS: CHLORIDE 104 mEq/L (98-107)
[2018-10-24 14:48] LABS: BASOPHILS % 1.3 % (0.0-2.0); EOSINOPHILS % 5.6 % (0.0-5.0); HEMATOCRIT. 22.9 % (42.0-52.0); HEMOGLOBIN. 7.4 g/dL (14.0-18.0); LYMPHOCYTES % 26.5 % (20.0-50.0); MEAN CORPUSCULAR HEMOGLOBIN 32.4 pg (28.0-32.0); MEAN CORPUSCULAR VOLUME 100.3 fL (80.0-94.0); MEAN PLATELET VOLUME 9.9 fl (7.4-10.4); MONOCYTES % 11.6 % (2.0-8.0); PLATELET 92 x1000/uL (130-400); RED BLOOD CELL COUNT 2.28 mill/uL (4.7-6.1); RED CELL DISTRIBUTION WIDTH 16.6 % (11.6-14.6)
[2018-10-24 14:50] LABS: INR 1.1; PROTHROMBIN TIME 11.4 sec (9.6-11.0)
[2018-10-24 22:00] VITALS: BP 162/69
[2018-10-24] MEDS ORDERED: ZOLPIDEM TARTRATE 5MG TABLET PO PRN (22:00)
[2018-10-24] MEDS ORDERED: HYDROCODONE/ACETAMINOPHEN 5/325MG TABLET PO PRN (22:00)
[2018-10-24] MEDS ORDERED: LORAZEPAM 2MG/ML CPJ IV PRN (23:15)
[2018-10-24] MEDS ORDERED: ONDANSETRON HCL 4MG/2ML INJ IV PRN (23:15)
[2018-10-24] MEDS ORDERED: HYDROMORPHONE HCL/PF 2MG/ML CPJ IV PRN (23:15)
[2018-10-24] MEDS ORDERED: HYDROCODONE/APAP 7.5/325MG 1 TAB TABLET PO PRN (23:15)
[2018-10-24] MEDS ORDERED: CLONIDINE 0.1MG TABLET PO PRN (23:15)
[2018-10-24] MEDS ORDERED: MAGNESIUM/ALUMINUM HYDROXIDE/SIMETHICONE 30ML UDC PO PRN (23:15)
[2018-10-25] VITALS (11 sets, daily range): BP systolic 105–169; BP diastolic 44–66
[2018-10-25] MEDS ORDERED: IPRATROPIUM/ALBUTEROL 0.5-3(2.5)MG/3ML NEB INH SCH
[2018-10-25] MEDS: THIAMINE HCL 100MG TABLET PO SCH ×2 (00:19→09:00)
[2018-10-25] MEDS ORDERED: DEXTROSE 50% WATER 50ML SYRINGE IV PRN ×2 (10:00)
[2018-10-25] MEDS: BLOOD SUGAR DIAGNOSTIC STRIP TEST SCH ×3 (12:51→21:00)
[2018-10-25 13:14] LABS: TOTAL IRON BINDING CAPACITY 165 ug/dL (250-450)
[2018-10-25] MEDS: BACLOFEN 10MG TABLET PO SCH (14:00)
[2018-10-25] MEDS: INSULIN LISPRO 100 UNITS/ML SUBCUT SCH ×3 (14:05→21:00)
[2018-10-25] MEDS: GABAPENTIN 300MG CAPSULE PO SCH (14:40)
[2018-10-25] MEDS: HYDRALAZINE HCL 100MG TABLET PO SCH ×2 (14:40→22:00)
[2018-10-25] MEDS ORDERED: LORAZEPAM 2MG/ML CPJ IV PRN (16:30)
[2018-10-25] MEDS ORDERED: OMEPRAZOLE 20MG CAPSULE EXTENDED RELEASE PO SCH (17:00)
[2018-10-25] MEDS ORDERED: TRAZODONE HCL 100MG TABLET PO SCH (21:00)
[2018-10-25] MEDS ORDERED: METOPROLOL TARTRATE 50MG TABLET PO SCH (21:00)
[2018-10-26] VITALS: BP 113/51
[2018-10-26] MEDS: BACLOFEN 10MG TABLET PO SCH (00:51)
[2018-10-26] MEDS: GABAPENTIN 300MG CAPSULE PO SCH (00:51)
[2018-10-26] MEDS ORDERED: CLONIDINE 0.1MG TABLET PO SCH (09:00)
== END 2018-10-26 01:30 | disposition short-term general hospital (02) | DRG 640 ==
LOC: ER 12:57 → 7WST 15:43 → EDBEDREQ 16:05 → EDBEDREQTM 16:05 → ENRESERV 19:38
PROVIDERS: ADMIT Internal Medicine Nephrology; ATTEND Internal Medicine Nephrology
PROC: 5A1D70Z Performance of Urinary Filtration, Intermittent, Less than 6 Hours Per Day (ICD-10-PCS; principal; 2018-10-25)
PROC: 30233N1 Transfusion of Nonautologous Red Blood Cells into Peripheral Vein, Percutaneous Approach (ICD-10-PCS; 2018-10-25)
DX: E87.5 Hyperkalemia (principal); N18.6 End stage renal disease; D61.818 Other pancytopenia; E44.0 Moderate protein-calorie malnutrition; M86.68 Other chronic osteomyelitis, other site; I12.0 Hypertensive chronic kidney disease with stage 5 chronic kidney disease or end stage renal disease; E11.22 Type 2 diabetes mellitus with diabetic chronic kidney disease; E11.42 Type 2 diabetes mellitus with diabetic polyneuropathy; D50.9 Iron deficiency anemia, unspecified; D63.1 Anemia in chronic kidney disease; E11.69 Type 2 diabetes mellitus with other specified complication; M17.11 Unilateral primary osteoarthritis, right knee; G89.29 Other chronic pain; B19.20 Unspecified viral hepatitis C without hepatic coma; R74.0 Nonspecific elevation of levels of transaminase and lactic acid dehydrogenase [LDH]; Z68.26 Body mass index [BMI] 26.0-26.9, adult; Z82.49 Family history of ischemic heart disease and other diseases of the circulatory system; Z99.2 Dependence on renal dialysis; Z74.01 Bed confinement status; Z79.1 Long term (current) use of non-steroidal anti-inflammatories (NSAID); Z79.899 Other long term (current) drug therapy
CPT/HCPCS: 36415; 71045; 73560; 82728; 82962; 83036; 83540; 83550; 85651; 86140; 86850; 86900; 86920; 93005; 96374; 99285; J1815; J2060; J2405; J7620; P9016

== ENCOUNTER 2018-11-11 14:35 | Inpatient (IN) | payer MEDICARE, OTHER ==
[~2018-11-11] VITALS: Ht 165.1 cm; Wt 73.5 kg
[~2018-11-11 14:35] MED LIST changes: -SOFO1TAB PO
[2018-11-11] MEDS ORDERED: SODIUM CHLORIDE 0.9% 1,000 ML IV ONE (16:37)
[2018-11-11 17:27] LABS: BASOPHILS % 1.2 % (0.0-2.0); EOSINOPHILS % 4.1 % (0.0-5.0); HEMATOCRIT. 23.4 % (42.0-52.0); HEMOGLOBIN. 7.8 g/dL (14.0-18.0); LYMPHOCYTES % 30.9 % (20.0-50.0); MEAN CORPUSCULAR HEMOGLOBIN 33.1 pg (28.0-32.0); MEAN CORPUSCULAR VOLUME 99.2 fL (80.0-94.0); MEAN PLATELET VOLUME 7.7 fl (7.4-10.4); MONOCYTES % 9.3 % (2.0-8.0); NEUTROPHILS % 54.5 % (40.0-76.0); PLATELET 115 x1000/uL (130-400); RED BLOOD CELL COUNT 2.36 mill/uL (4.7-6.1); RED CELL DISTRIBUTION WIDTH 20.4 % (11.6-14.6)
[2018-11-11 17:32] LABS: CHLORIDE 105 mEq/L (98-107)
[2018-11-11 17:40] LABS: INR 1.1; PARTIAL THROMBOPLASTIN TIME 29.5 sec (23.4-31.0); PROTHROMBIN TIME 11.7 sec (9.6-11.0)
[2018-11-11 20:00] VITALS: BP 127/52
[2018-11-11] MEDS ORDERED: ONDANSETRON HCL 4MG/2ML INJ IV PRN (21:30)
[2018-11-11 22:54] VITALS: BP 127/52
[2018-11-12] MEDS: TRAZODONE HCL 100MG TABLET PO SCH ×2 (02:40→21:27)
[2018-11-12] MEDS ORDERED: DEXTROSE 50% WATER 50ML SYRINGE IV PRN ×2 (06:36→17:45)
[2018-11-12] MEDS: BLOOD SUGAR DIAGNOSTIC STRIP TEST SCH ×4 (06:36→21:31)
[2018-11-12] MEDS: INSULIN LISPRO 100 UNITS/ML SUBCUT SCH ×4 (07:50→21:00)
[2018-11-12] MEDS: THIAMINE HCL 100MG TABLET PO SCH (09:00)
[2018-11-12] MEDS: LISINOPRIL 5MG TABLET PO SCH (09:00)
[2018-11-12 12:00] VITALS: BP 155/77
[2018-11-12] MEDS ORDERED: HEPARIN SODIUM 1,000 UNIT/1ML VIAL IV NR (12:30)
[2018-11-12] MEDS: HYDROCODONE/APAP 7.5/325MG 1 TAB TABLET PO PRN (15:16)
[2018-11-12] MEDS: DOCUSATE SODIUM 100MG CAPSULE PO SCH (17:27)
[2018-11-12] MEDS ORDERED: MAGNESIUM/ALUMINUM HYDROXIDE/SIMETHICONE 30ML UDC PO PRN (17:45)
[2018-11-12 20:00] VITALS: BP 132/54
[2018-11-12] MEDS: POLYETHYLENE GLYCOL 3350 (17GM) 1 DOSE PACK PO SCH (21:00)
[2018-11-12 21:59] LABS: TOTAL IRON BINDING CAPACITY 223 ug/dL (250-450)
[2018-11-13] VITALS (24 sets, daily range): BP systolic 129–164; BP diastolic 39–93
[2018-11-13] MEDS: BLOOD SUGAR DIAGNOSTIC STRIP TEST SCH ×4 (07:20→21:23)
[2018-11-13] MEDS: INSULIN LISPRO 100 UNITS/ML SUBCUT SCH ×4 (07:20→21:00)
[2018-11-13 07:51] LABS: PHOSPHORUS 4.2 mg/dL (2.5-4.9)
[2018-11-13] MEDS ORDERED: LIDOCAINE HCL 1% 20ML VIAL (Pyxis) INJ ONE (08:12)
[2018-11-13] MEDS ORDERED: SODIUM BICARBONATE 4% (2.4MEQ) 5ML VIAL IV ONE (08:13)
[2018-11-13] MEDS ORDERED: FENTANYL CITRATE/PF 50MCG/ML 2ML VIAL ONE (08:31)
[2018-11-13] MEDS ORDERED: FENTANYL CITRATE/PF 50MCG/ML 2ML VIAL IV ONE (09:30)
[2018-11-13] MEDS: THIAMINE HCL 100MG TABLET PO SCH (11:46)
[2018-11-13] MEDS: DOCUSATE SODIUM 100MG CAPSULE PO SCH ×2 (11:46→16:26)
[2018-11-13] MEDS: LISINOPRIL 5MG TABLET PO SCH (11:47)
[2018-11-13 12:36] LABS: MEAN CORPUSCULAR HEMOGLOBIN 33.1 pg (28.0-32.0); MEAN PLATELET VOLUME 8.1 fl (7.4-10.4); PLATELET 54 x1000/uL (130-400); RED BLOOD CELL COUNT 1.87 mill/uL (4.7-6.1); RED CELL DISTRIBUTION WIDTH 21.2 % (11.6-14.6)
[2018-11-13 12:37] LABS: CHLORIDE 104 mEq/L (98-107)
[2018-11-13 12:38] LABS: INR 1.3
[2018-11-13 13:02] LABS: HEMOGLOBIN. 6.2 g/dL (14.0-18.0)
[2018-11-13 13:03] LABS: HEMATOCRIT. 18.7 % (42.0-52.0)
[2018-11-13 14:28] LABS: HEPATITIS B SURFACE ANTIGEN NEGATIVE
[2018-11-13 14:30] LABS: PLATELET ESTIMATE DECREASED
[2018-11-13 14:58] LABS: HEPATITIS A AB IGM NEGATIVE (NEGATIVE)
[2018-11-13] MEDS: CEFTRIAXONE 1 G PREMIX 50 ML IV SCH (15:58)
[2018-11-13] MEDS ORDERED: VANCOMYCIN 1,750 MG in DEXT 5% WATER 250 ML IV NR (16:00)
[2018-11-13] MEDS: HYDROCODONE/APAP 7.5/325MG 1 TAB TABLET PO PRN (16:22)
[2018-11-13] MEDS: DIPHENHYDRAMINE 50MG/ML VIAL IV PRN (17:46)
[2018-11-13] MEDS: POLYETHYLENE GLYCOL 3350 (17GM) 1 DOSE PACK PO SCH (21:00)
[2018-11-13] MEDS: TRAZODONE HCL 100MG TABLET PO SCH (21:34)
[2018-11-13] MEDS: LORAZEPAM 2MG/ML CPJ IV PRN (21:34)
[2018-11-14] VITALS (10 sets, daily range): BP systolic 106–168; BP diastolic 23–80
[2018-11-14 00:20] LABS: MEAN CORPUSCULAR HEMOGLOBIN 32.3 pg (28.0-32.0); MEAN CORPUSCULAR VOLUME 96.7 fL (80.0-94.0); MEAN PLATELET VOLUME 8.3 fl (7.4-10.4); PLATELET 53 x1000/uL (130-400); RED BLOOD CELL COUNT 1.95 mill/uL (4.7-6.1); RED CELL DISTRIBUTION WIDTH 21.3 % (11.6-14.6)
[2018-11-14 00:22] LABS: INR 1.3; PROTHROMBIN TIME 13.3 sec (9.6-11.0)
[2018-11-14 00:38] LABS: HEMATOCRIT. 18.9 % (42.0-52.0); HEMOGLOBIN. 6.3 g/dL (14.0-18.0)
[2018-11-14 02:00] LABS: PLATELET ESTIMATE DECREASED
[2018-11-14] MEDS: DIPHENHYDRAMINE 50MG/ML VIAL IV PRN (04:51)
[2018-11-14] MEDS ORDERED: BUPIVACAINE HCL/PF 0.25% (2.5MG/ML) 10ML ONE (07:20)
[2018-11-14] MEDS ORDERED: VANCOMYCIN HCL 500 MG/VIAL ONE ×2 (07:21→09:56)
[2018-11-14] MEDS: INSULIN LISPRO 100 UNITS/ML SUBCUT SCH ×4 (07:50→21:00)
[2018-11-14] MEDS: BLOOD SUGAR DIAGNOSTIC STRIP TEST SCH ×4 (08:16→21:22)
[2018-11-14] MEDS: LISINOPRIL 5MG TABLET PO SCH (08:58)
[2018-11-14] MEDS: DOCUSATE SODIUM 100MG CAPSULE PO SCH ×2 (08:58→16:36)
[2018-11-14] MEDS: THIAMINE HCL 100MG TABLET PO SCH (08:58)
[2018-11-14] MEDS ORDERED: DEXT 5%/0.45% NACL 1000ML 1,000 ML IV SCH (09:00)
[2018-11-14] MEDS ORDERED: MIDAZOLAM HCL 2 MG/2 ML VIAL ONE (09:03)
[2018-11-14] MEDS ORDERED: FENTANYL CITRATE/PF 50MCG/ML 2ML VIAL ONE (09:03)
[2018-11-14] MEDS ORDERED: PROPOFOL 200MG/20ML VIAL IV ONE (09:03)
[2018-11-14 09:15] LABS: BASOPHILS % 0.7 % (0.0-2.0); EOSINOPHILS % 2.8 % (0.0-5.0); HEMOGLOBIN. 8.4 g/dL (14.0-18.0); LYMPHOCYTES % 25.1 % (20.0-50.0); MEAN CORPUSCULAR HEMOGLOBIN 32.5 pg (28.0-32.0); MEAN CORPUSCULAR VOLUME 96.4 fL (80.0-94.0); MEAN PLATELET VOLUME 8.2 fl (7.4-10.4); MONOCYTES % 7.4 % (2.0-8.0); PLATELET 68 x1000/uL (130-400); RED CELL DISTRIBUTION WIDTH 20.2 % (11.6-14.6)
[2018-11-14] MEDS: TRANEXAMIC ACID 1,000 MG in SODIUM CHLORIDE 0.9% 100 ML IV SCH ×2 (09:30→10:00)
[2018-11-14] MEDS ORDERED: METOCLOPRAMIDE HCL 10MG/2ML VIAL ONE (09:51)
[2018-11-14] MEDS ORDERED: FENTANYL CITRATE/PF 50MCG/ML 5ML VIAL ONE (09:51)
[2018-11-14] MEDS ORDERED: MEPERIDINE HCL/PF 25MG/ML CPJ IV PRN (10:00)
[2018-11-14] MEDS ORDERED: HYDROMORPHONE HCL/PF 2MG/ML CPJ IV PRN (10:00)
[2018-11-14] MEDS ORDERED: ONDANSETRON HCL 4MG/2ML INJ IV PRN (10:00)
[2018-11-14] MEDS ORDERED: FENTANYL CITRATE/PF 50MCG/ML 2ML VIAL IV PRN (10:00)
[2018-11-14] MEDS ORDERED: MORPHINE SULFATE 2 MG/ML CPJ (NOT FOR IM USE) IV PRN (10:00)
[2018-11-14] MEDS ORDERED: EPINEPHRINE 1:1000 1 MG/ML AMP ONE (10:31)
[2018-11-14] MEDS ORDERED: NEOSTIGMINE METHYLSULFATE 1MG/ML 10 ML VIAL ONE (12:32)
[2018-11-14] MEDS ORDERED: GLYCOPYRROLATE 0.2 MG/ML 2ML VIAL ONE (12:32)
[2018-11-14] MEDS ORDERED: NALOXONE INJ IV PRN (13:45)
[2018-11-14] MEDS ORDERED: DIPHENHYDRAMINE INJ IV PRN (13:45)
[2018-11-14] MEDS ORDERED: ONDANSETRON INJ IV PRN (13:45)
[2018-11-14] MEDS ORDERED: HYDROMORPHONE PCA 10MG/50ML IV PRN (13:45)
[2018-11-14] MEDS: CEFTRIAXONE 1 G PREMIX 50 ML IV SCH (14:00)
[2018-11-14] MEDS: LORAZEPAM 2MG/ML CPJ IV PRN (14:58)
[2018-11-14] MEDS: TRAZODONE HCL 100MG TABLET PO SCH (21:10)
[2018-11-14] MEDS: POLYETHYLENE GLYCOL 3350 (17GM) 1 DOSE PACK PO SCH (21:15)
[2018-11-15] VITALS: BP 127/53
[2018-11-15 04:00] VITALS: BP 124/54
[2018-11-15] MEDS: LORAZEPAM 2MG/ML CPJ IV PRN ×3 (05:13→22:32)
[2018-11-15] MEDS: BLOOD SUGAR DIAGNOSTIC STRIP TEST SCH ×4 (07:38→21:06)
[2018-11-15] MEDS: INSULIN LISPRO 100 UNITS/ML SUBCUT SCH ×4 (07:39→21:00)
[2018-11-15 07:55] LABS: BASOPHILS % 0.7 % (0.0-2.0); EOSINOPHILS % 1.5 % (0.0-5.0); HEMATOCRIT. 21.1 % (42.0-52.0); HEMOGLOBIN. 7.2 g/dL (14.0-18.0); LYMPHOCYTES % 16.3 % (20.0-50.0); MEAN CORPUSCULAR HEMOGLOBIN 32.2 pg (28.0-32.0); MEAN CORPUSCULAR VOLUME 94.7 fL (80.0-94.0); MEAN PLATELET VOLUME 8.1 fl (7.4-10.4); MONOCYTES % 10.9 % (2.0-8.0); NEUTROPHILS % 70.6 % (40.0-76.0); PLATELET 58 x1000/uL (130-400); RED BLOOD CELL COUNT 2.23 mill/uL (4.7-6.1); RED CELL DISTRIBUTION WIDTH 18.4 % (11.6-14.6)
[2018-11-15 08:00] VITALS: BP 133/56
[2018-11-15] MEDS: THIAMINE HCL 100MG TABLET PO SCH (09:50)
[2018-11-15] MEDS: DOCUSATE SODIUM 100MG CAPSULE PO SCH ×2 (09:50→16:30)
[2018-11-15] MEDS: LISINOPRIL 5MG TABLET PO SCH (09:51)
[2018-11-15 12:00] VITALS: BP 120/61
[2018-11-15] MEDS ORDERED: VANCOMYCIN 1 G PREMIX 200 ML IV NR (13:00)
[2018-11-15] MEDS: CEFTRIAXONE 1 G PREMIX 50 ML IV SCH (15:29)
[2018-11-15 16:00] VITALS: BP 124/64
[2018-11-15 20:00] VITALS: BP 102/44
[2018-11-15] MEDS: POLYETHYLENE GLYCOL 3350 (17GM) 1 DOSE PACK PO SCH (21:06)
[2018-11-15] MEDS: TRAZODONE HCL 100MG TABLET PO SCH (21:06)
[2018-11-16] VITALS (12 sets, daily range): BP systolic 109–156; BP diastolic 35–76
[2018-11-16] MEDS: BLOOD SUGAR DIAGNOSTIC STRIP TEST SCH ×3 (05:49→18:07)
[2018-11-16] MEDS: INSULIN LISPRO 100 UNITS/ML SUBCUT SCH ×4 (07:50→21:00)
[2018-11-16 08:13] LABS: BASOPHILS % 0.5 % (0.0-2.0); EOSINOPHILS % 2.7 % (0.0-5.0); LYMPHOCYTES % 22.1 % (20.0-50.0); MEAN CORPUSCULAR VOLUME 96.2 fL (80.0-94.0); MEAN PLATELET VOLUME 7.9 fl (7.4-10.4); MONOCYTES % 11.2 % (2.0-8.0); NEUTROPHILS % 63.5 % (40.0-76.0); RED BLOOD CELL COUNT 1.93 mill/uL (4.7-6.1); RED CELL DISTRIBUTION WIDTH 19.7 % (11.6-14.6)
[2018-11-16 09:34] LABS: HEMATOCRIT. 18.5 % (42.0-52.0); HEMOGLOBIN. 6.2 g/dL (14.0-18.0)
[2018-11-16 09:37] LABS: PLATELET 48 x1000/uL (130-400)
[2018-11-16] MEDS: DOCUSATE SODIUM 100MG CAPSULE PO SCH ×2 (10:10→18:04)
[2018-11-16] MEDS: THIAMINE HCL 100MG TABLET PO SCH (10:10)
[2018-11-16] MEDS: LISINOPRIL 5MG TABLET PO SCH (10:11)
[2018-11-16] MEDS: LORAZEPAM 2MG/ML CPJ IV PRN (12:31)
[2018-11-16] MEDS ORDERED: HEPARIN SODIUM 1,000 UNIT/1ML VIAL IV NR (12:45)
[2018-11-16] MEDS: CEFTRIAXONE 1 G PREMIX 50 ML IV SCH (14:07)
[2018-11-16 17:13] LABS: HEMATOCRIT 23.4 % (42.0-52.0); HEMOGLOBIN 8.1 g/dL (14.0-18.0)
[2018-11-16] MEDS: TRAZODONE HCL 100MG TABLET PO SCH (20:41)
[2018-11-16] MEDS: POLYETHYLENE GLYCOL 3350 (17GM) 1 DOSE PACK PO SCH (20:41)
[2018-11-17] VITALS: BP 143/57
[2018-11-17] MEDS: INSULIN LISPRO 100 UNITS/ML SUBCUT SCH ×4 (07:50→21:00)
[2018-11-17 08:00] VITALS: BP 166/68
[2018-11-17] MEDS: BLOOD SUGAR DIAGNOSTIC STRIP TEST SCH ×4 (08:17→21:00)
[2018-11-17] MEDS: DOCUSATE SODIUM 100MG CAPSULE PO SCH ×2 (09:05→17:35)
[2018-11-17] MEDS: THIAMINE HCL 100MG TABLET PO SCH (09:06)
[2018-11-17] MEDS: LISINOPRIL 5MG TABLET PO SCH (09:06)
[2018-11-17] MEDS: DIPHENHYDRAMINE 50MG/ML VIAL IV PRN ×2 (10:28→17:36)
[2018-11-17] MEDS: OXYCODONE HCL 5MG TABLET PO PRN ×2 (10:51→17:36)
[2018-11-17] MEDS: CLONIDINE 0.1MG TABLET PO PRN (11:22)
[2018-11-17 12:00] VITALS: BP 166/66
[2018-11-17 12:49] LABS: BASOPHILS % 0.5 % (0.0-2.0); EOSINOPHILS % 4.1 % (0.0-5.0); HEMATOCRIT. 22.6 % (42.0-52.0); HEMOGLOBIN. 7.7 g/dL (14.0-18.0); LYMPHOCYTES % 14.1 % (20.0-50.0); MEAN CORPUSCULAR HEMOGLOBIN 32.2 pg (28.0-32.0); MEAN CORPUSCULAR VOLUME 94.4 fL (80.0-94.0); MEAN PLATELET VOLUME 8.5 fl (7.4-10.4); MONOCYTES % 8.6 % (2.0-8.0); NEUTROPHILS % 72.7 % (40.0-76.0); PLATELET 52 x1000/uL (130-400); RED BLOOD CELL COUNT 2.39 mill/uL (4.7-6.1)
[2018-11-17] MEDS: CEFTRIAXONE 1 G PREMIX 50 ML IV SCH (13:41)
[2018-11-17 14:36] LABS: TOTAL IRON BINDING CAPACITY 219 ug/dL (250-450)
[2018-11-17] MEDS: LORAZEPAM 2MG/ML CPJ IV PRN (15:49)
[2018-11-17 16:00] VITALS: BP 121/47
[2018-11-17 20:00] VITALS: BP 133/49
[2018-11-17] MEDS: POLYETHYLENE GLYCOL 3350 (17GM) 1 DOSE PACK PO SCH (20:27)
[2018-11-17] MEDS: TRAZODONE HCL 100MG TABLET PO SCH (20:27)
[2018-11-18] MEDS: OXYCODONE HCL 5MG TABLET PO PRN ×2 (05:20→12:04)
[2018-11-18 06:43] LABS: BASOPHILS % 0.6 % (0.0-2.0); EOSINOPHILS % 5.1 % (0.0-5.0); HEMATOCRIT. 21.3 % (42.0-52.0); HEMOGLOBIN. 7.4 g/dL (14.0-18.0); LYMPHOCYTES % 27.5 % (20.0-50.0); MEAN CORPUSCULAR HEMOGLOBIN 32.9 pg (28.0-32.0); MEAN CORPUSCULAR VOLUME 95.6 fL (80.0-94.0); MEAN PLATELET VOLUME 8.7 fl (7.4-10.4); MONOCYTES % 9.5 % (2.0-8.0); NEUTROPHILS % 57.3 % (40.0-76.0); PLATELET 52 x1000/uL (130-400); RED BLOOD CELL COUNT 2.23 mill/uL (4.7-6.1); RED CELL DISTRIBUTION WIDTH 17.7 % (11.6-14.6)
[2018-11-18 07:09] LABS: CHLORIDE 103 mEq/L (98-107)
[2018-11-18 07:15] LABS: PHOSPHORUS 5.7 mg/dL (2.5-4.9)
[2018-11-18] MEDS: BLOOD SUGAR DIAGNOSTIC STRIP TEST SCH ×4 (07:20→20:00)
[2018-11-18] MEDS: INSULIN LISPRO 100 UNITS/ML SUBCUT SCH ×4 (07:50→20:09)
[2018-11-18 08:00] VITALS: BP 134/62
[2018-11-18] MEDS: LISINOPRIL 5MG TABLET PO SCH (08:24)
[2018-11-18] MEDS: THIAMINE HCL 100MG TABLET PO SCH (08:24)
[2018-11-18] MEDS: DOCUSATE SODIUM 100MG CAPSULE PO SCH ×2 (08:24→15:05)
[2018-11-18] MEDS: DIPHENHYDRAMINE 50MG/ML VIAL IV PRN ×3 (08:25→20:41)
[2018-11-18 12:00] VITALS: BP 142/59
[2018-11-18] MEDS: HYDROMORPHONE HCL/PF 2MG/ML CPJ IV PRN ×2 (14:34→20:41)
[2018-11-18] MEDS: CEFTRIAXONE 1 G PREMIX 50 ML IV SCH (15:00)
[2018-11-18 16:00] VITALS: BP 160/50
[2018-11-18] MEDS ORDERED: OXYCODONE HCL 5MG TABLET PO PRN (16:30)
[2018-11-18 20:00] VITALS: BP 140/57
[2018-11-18] MEDS: TRAZODONE HCL 100MG TABLET PO SCH (20:00)
[2018-11-18] MEDS: POLYETHYLENE GLYCOL 3350 (17GM) 1 DOSE PACK PO SCH (20:00)
[2018-11-19] VITALS: BP 151/52
[2018-11-19] MEDS: LORAZEPAM 2MG/ML CPJ IV PRN (01:33)
[2018-11-19 04:00] VITALS: BP 191/72
[2018-11-19] MEDS: DIPHENHYDRAMINE 50MG/ML VIAL IV PRN ×3 (05:34→20:45)
[2018-11-19] MEDS: HYDROMORPHONE HCL/PF 2MG/ML CPJ IV PRN (05:35)
[2018-11-19] MEDS: INSULIN LISPRO 100 UNITS/ML SUBCUT SCH ×4 (07:46→20:15)
[2018-11-19] MEDS: BLOOD SUGAR DIAGNOSTIC STRIP TEST SCH ×4 (07:46→20:15)
[2018-11-19 08:00] VITALS: BP 162/53
[2018-11-19] MEDS: DOCUSATE SODIUM 100MG CAPSULE PO SCH ×2 (09:00→17:00)
[2018-11-19] MEDS: LISINOPRIL 5MG TABLET PO SCH (09:00)
[2018-11-19] MEDS: THIAMINE HCL 100MG TABLET PO SCH (09:19)
[2018-11-19] MEDS: HYDROMORPHONE HCL 2MG TABLET PO SCH ×2 (09:20→17:41)
[2018-11-19 12:00] VITALS: BP 140/64
[2018-11-19] MEDS: CEFTRIAXONE 1 G PREMIX 50 ML IV SCH (13:52)
[2018-11-19] MEDS ORDERED: VANCOMYCIN 750 MG PREMIX 150 ML IV SCH (15:00)
[2018-11-19] MEDS ORDERED: VANCOMYCIN 500 MG PREMIX 100 ML IV SCH (15:00)
[2018-11-19 16:00] VITALS: BP 143/53
[2018-11-19 20:00] VITALS: BP 154/72
[2018-11-19] MEDS: TRAZODONE HCL 100MG TABLET PO SCH (20:13)
[2018-11-19] MEDS: POLYETHYLENE GLYCOL 3350 (17GM) 1 DOSE PACK PO SCH (20:15)
[2018-11-19] MEDS: EPOETIN ALFA 4000UNITS/ML VIAL SUBCUT SCH (22:04)
[2018-11-20] VITALS (10 sets, daily range): BP systolic 65–179; BP diastolic 59–73
[2018-11-20] MEDS: DIPHENHYDRAMINE 50MG/ML VIAL IV PRN ×3 (03:53→18:04)
[2018-11-20] MEDS: OXYCODONE HCL 5MG TABLET PO PRN (03:54)
[2018-11-20 06:36] LABS: BASOPHILS % 0.7 % (0.0-2.0); EOSINOPHILS % 7.4 % (0.0-5.0); LYMPHOCYTES % 26.7 % (20.0-50.0); MEAN CORPUSCULAR HEMOGLOBIN 32.5 pg (28.0-32.0); MEAN CORPUSCULAR VOLUME 96.2 fL (80.0-94.0); MEAN PLATELET VOLUME 8.7 fl (7.4-10.4); MONOCYTES % 11.5 % (2.0-8.0); NEUTROPHILS % 53.7 % (40.0-76.0); PLATELET 65 x1000/uL (130-400); RED BLOOD CELL COUNT 2.05 mill/uL (4.7-6.1); RED CELL DISTRIBUTION WIDTH 18.2 % (11.6-14.6)
[2018-11-20] MEDS: BLOOD SUGAR DIAGNOSTIC STRIP TEST SCH ×4 (07:20→21:04)
[2018-11-20] MEDS: INSULIN LISPRO 100 UNITS/ML SUBCUT SCH ×4 (07:20→21:00)
[2018-11-20 07:49] LABS: HEMATOCRIT. 19.7 % (42.0-52.0)
[2018-11-20 07:52] LABS: HEMOGLOBIN. 6.7 g/dL (14.0-18.0)
[2018-11-20] MEDS: DOCUSATE SODIUM 100MG CAPSULE PO SCH ×2 (08:29→17:00)
[2018-11-20] MEDS: DOXYCYCLINE HYCLATE 100MG CAPSULE PO SCH ×2 (08:32→20:59)
[2018-11-20] MEDS: THIAMINE HCL 100MG TABLET PO SCH (08:32)
[2018-11-20] MEDS: HYDROMORPHONE HCL 2MG TABLET PO SCH ×2 (08:33→16:44)
[2018-11-20] MEDS: LISINOPRIL 5MG TABLET PO SCH (08:33)
[2018-11-20] MEDS: CEFTRIAXONE 1 G PREMIX 50 ML IV SCH (16:44)
[2018-11-20] MEDS: CLONIDINE 0.1MG TABLET PO PRN (20:59)
[2018-11-20] MEDS: TRAZODONE HCL 100MG TABLET PO SCH (20:59)
[2018-11-20] MEDS: POLYETHYLENE GLYCOL 3350 (17GM) 1 DOSE PACK PO SCH (21:00)
[2018-11-20] MEDS: LORAZEPAM 2MG/ML CPJ IV PRN (22:17)
[2018-11-21] VITALS: BP 181/82
[2018-11-21 02:09] LABS: BASOPHILS % 0.7 % (0.0-2.0); EOSINOPHILS % 8.3 % (0.0-5.0); HEMATOCRIT. 21.2 % (42.0-52.0); HEMOGLOBIN. 7.3 g/dL (14.0-18.0); LYMPHOCYTES % 29.1 % (20.0-50.0); MEAN CORPUSCULAR HEMOGLOBIN 32.4 pg (28.0-32.0); MEAN CORPUSCULAR VOLUME 94.5 fL (80.0-94.0); MEAN PLATELET VOLUME 8.6 fl (7.4-10.4); MONOCYTES % 11.2 % (2.0-8.0); NEUTROPHILS % 50.7 % (40.0-76.0); PLATELET 61 x1000/uL (130-400); RED BLOOD CELL COUNT 2.24 mill/uL (4.7-6.1); RED CELL DISTRIBUTION WIDTH 18.2 % (11.6-14.6)
[2018-11-21] MEDS: DIPHENHYDRAMINE 50MG/ML VIAL IV PRN ×2 (07:07→18:01)
[2018-11-21] MEDS: BLOOD SUGAR DIAGNOSTIC STRIP TEST SCH ×4 (07:08→21:00)
[2018-11-21] MEDS: INSULIN LISPRO 100 UNITS/ML SUBCUT SCH ×4 (07:50→21:00)
[2018-11-21 08:00] VITALS: BP 138/112
[2018-11-21] MEDS ORDERED: HYDROMORPHONE HCL/PF 2MG/ML CPJ IM SCH (08:15)
[2018-11-21] MEDS: HYDROMORPHONE HCL 2MG TABLET PO SCH ×2 (09:00→17:12)
[2018-11-21] MEDS: DOXYCYCLINE HYCLATE 100MG CAPSULE PO SCH ×2 (09:00→20:23)
[2018-11-21] MEDS: DOCUSATE SODIUM 100MG CAPSULE PO SCH ×3 (09:00→17:11)
[2018-11-21] MEDS: LISINOPRIL 5MG TABLET PO SCH (09:00)
[2018-11-21] MEDS: THIAMINE HCL 100MG TABLET PO SCH (09:00)
[2018-11-21 09:01] LABS: EOSINOPHILS % 9.1 % (0.0-5.0); HEMATOCRIT. 22.1 % (42.0-52.0); HEMOGLOBIN. 7.4 g/dL (14.0-18.0); LYMPHOCYTES % 26.4 % (20.0-50.0); MEAN CORPUSCULAR HEMOGLOBIN 31.8 pg (28.0-32.0); MEAN CORPUSCULAR VOLUME 94.3 fL (80.0-94.0); MEAN PLATELET VOLUME 8.3 fl (7.4-10.4); MONOCYTES % 10.1 % (2.0-8.0); NEUTROPHILS % 53.4 % (40.0-76.0); PLATELET 64 x1000/uL (130-400); RED BLOOD CELL COUNT 2.34 mill/uL (4.7-6.1); RED CELL DISTRIBUTION WIDTH 17.7 % (11.6-14.6)
[2018-11-21] MEDS ORDERED: CLONIDINE HCL 0.1MG/24HR PATCH TD SCH (10:00)
[2018-11-21 12:00] VITALS: BP 136/57
[2018-11-21] MEDS ORDERED: BACTERIOSTATIC SODIUM CHLORIDE 0.9% 30ML VIAL IJ ONE (13:34)
[2018-11-21] MEDS ORDERED: SIMETHICONE 40 MG/0.6 ML 30ML ONE (14:21)
[2018-11-21] MEDS ORDERED: MIDAZOLAM HCL 5 MG/5 ML VIAL ONE (14:22)
[2018-11-21] MEDS ORDERED: FENTANYL CITRATE/PF 50MCG/ML 2ML VIAL ONE (14:22)
[2018-11-21] MEDS ORDERED: FENTANYL CITRATE/PF 50MCG/ML 2ML VIAL IV PRN (14:38)
[2018-11-21] MEDS ORDERED: MIDAZOLAM HCL 5 MG/5 ML VIAL IV PRN (14:39)
[2018-11-21 16:00] VITALS: BP 153/63
[2018-11-21] MEDS ORDERED: DIPHENHYDRAMINE 50MG/ML VIAL IV PRN (18:15)
[2018-11-21 20:00] VITALS: BP 189/74
[2018-11-21] MEDS ORDERED: CLINDAMYCIN 600MG PREMIX 50 ML IV SCH (20:00)
[2018-11-21] MEDS: CLONIDINE 0.1MG TABLET PO PRN (20:23)
[2018-11-21] MEDS: TRAZODONE HCL 100MG TABLET PO SCH (20:23)
[2018-11-21] MEDS: POLYETHYLENE GLYCOL 3350 (17GM) 1 DOSE PACK PO SCH (21:00)
[2018-11-21] MEDS ORDERED: METHYLPREDNISOLONE SOD SUCC 40 MG/ML VIAL IV SCH (22:00)
[2018-11-21] MEDS: EPOETIN ALFA 4000UNITS/ML VIAL SUBCUT SCH (22:37)
[2018-11-21 23:22] LABS: PHOSPHORUS 7.9 mg/dL (2.5-4.9)
[2018-11-22] MEDS: LORAZEPAM 2MG/ML CPJ IV PRN ×2 (02:00→07:38)
[2018-11-22] MEDS: BLOOD SUGAR DIAGNOSTIC STRIP TEST SCH ×4 (07:20→21:00)
[2018-11-22] MEDS: INSULIN LISPRO 100 UNITS/ML SUBCUT SCH ×4 (07:38→22:12)
[2018-11-22 08:00] VITALS: BP 159/70
[2018-11-22] MEDS: THIAMINE HCL 100MG TABLET PO SCH (08:31)
[2018-11-22] MEDS: DOXYCYCLINE HYCLATE 100MG CAPSULE PO SCH ×2 (08:31→21:51)
[2018-11-22] MEDS: HYDROMORPHONE HCL 2MG TABLET PO SCH ×2 (08:32→16:16)
[2018-11-22] MEDS: LISINOPRIL 20MG TABLET PO SCH (08:32)
[2018-11-22] MEDS: DOCUSATE SODIUM 100MG CAPSULE PO SCH ×2 (08:32→16:54)
[2018-11-22] MEDS ORDERED: FAMOTIDINE 20MG/2ML VIAL IV SCH (09:00)
[2018-11-22 09:34] LABS: BASOPHILS % 0.9 % (0.0-2.0); EOSINOPHILS % 9.1 % (0.0-5.0); HEMATOCRIT. 23.4 % (42.0-52.0); HEMOGLOBIN. 7.8 g/dL (14.0-18.0); LYMPHOCYTES % 29.8 % (20.0-50.0); MEAN CORPUSCULAR HEMOGLOBIN 32.1 pg (28.0-32.0); MEAN CORPUSCULAR VOLUME 95.8 fL (80.0-94.0); MONOCYTES % 7.8 % (2.0-8.0); NEUTROPHILS % 52.4 % (40.0-76.0); PLATELET 67 x1000/uL (130-400); RED BLOOD CELL COUNT 2.44 mill/uL (4.7-6.1); RED CELL DISTRIBUTION WIDTH 18.3 % (11.6-14.6)
[2018-11-22] MEDS ORDERED: OXYCODONE HCL 5MG TABLET PO PRN (11:00)
[2018-11-22 12:00] VITALS: BP 185/74
[2018-11-22] MEDS ORDERED: CEFTRIAXONE 1 G PREMIX 50 ML IV SCH (13:00)
[2018-11-22] MEDS: LIDOCAINE 5% PATCH TOP SCH (13:05)
[2018-11-22 16:00] VITALS: BP 167/77
[2018-11-22] MEDS: DIPHENHYDRAMINE 50MG/ML VIAL IV PRN (17:44)
[2018-11-22 20:28] VITALS: BP 166/84
[2018-11-22] MEDS: TRAZODONE HCL 100MG TABLET PO SCH (21:50)
[2018-11-22] MEDS: POLYETHYLENE GLYCOL 3350 (17GM) 1 DOSE PACK PO SCH (22:08)
[2018-11-22 23:52] VITALS: BP 115/40
[2018-11-23] MEDS ORDERED: ACETAMINOPHEN 325MG TABLET PO PRN
[2018-11-23] MEDS ORDERED: VANCOMYCIN 1 G PREMIX 200 ML IV NR (01:00)
[2018-11-23 04:08] VITALS: BP 146/61
[2018-11-23] MEDS: BLOOD SUGAR DIAGNOSTIC STRIP TEST SCH (07:41)
[2018-11-23] MEDS: INSULIN LISPRO 100 UNITS/ML SUBCUT SCH (07:50)
[2018-11-23 08:00] VITALS: BP 152/55
[2018-11-23] MEDS: DOCUSATE SODIUM 100MG CAPSULE PO SCH ×2 (09:00→09:09)
[2018-11-23] MEDS: DIPHENHYDRAMINE 50MG/ML VIAL IV PRN (09:09)
[2018-11-23] MEDS: LISINOPRIL 20MG TABLET PO SCH (09:09)
[2018-11-23] MEDS: THIAMINE HCL 100MG TABLET PO SCH (09:09)
[2018-11-23] MEDS: HYDROMORPHONE HCL 2MG TABLET PO SCH (09:09)
[2018-11-23] MEDS: DOXYCYCLINE HYCLATE 100MG CAPSULE PO SCH (09:09)
[2018-11-23] MEDS: LIDOCAINE 5% PATCH TOP SCH (10:17)
[2018-11-23 12:00] VITALS: BP 152/51
[2018-11-23 15:04] VITALS: BP 152/51
[2018-11-27 08:31] LABS: HIV SCREEN 4G Non Reactive (NonReactive)
== END 2018-11-23 15:56 | disposition home health service (06) | DRG 488 ==
LOC: ER 14:35 → 6EST 17:04 → ENRESERV 17:37
PROVIDERS: ADMIT Internal Medicine Nephrology; ATTEND Internal Medicine Nephrology
PROC: 30233N1 Transfusion of Nonautologous Red Blood Cells into Peripheral Vein, Percutaneous Approach (ICD-10-PCS; 2018-11-13)
PROC: 0FB03ZX Excision of Liver, Percutaneous Approach, Diagnostic (ICD-10-PCS; 2018-11-13)
PROC: 0SRC0EZ Replacement of Right Knee Joint with Articulating Spacer, Open Approach (ICD-10-PCS; principal; 2018-11-14)
PROC: 30233L1 Transfusion of Nonautologous Fresh Plasma into Peripheral Vein, Percutaneous Approach (ICD-10-PCS; 2018-11-14)
PROC: 5A1D70Z Performance of Urinary Filtration, Intermittent, Less than 6 Hours Per Day (ICD-10-PCS; 2018-11-14)
PROC: 5A1D70Z Performance of Urinary Filtration, Intermittent, Less than 6 Hours Per Day (ICD-10-PCS; 2018-11-16)
PROC: 5A1D70Z Performance of Urinary Filtration, Intermittent, Less than 6 Hours Per Day (ICD-10-PCS; 2018-11-19)
PROC: 0DB68ZX Excision of Stomach, Via Natural or Artificial Opening Endoscopic, Diagnostic (ICD-10-PCS; 2018-11-21)
PROC: 5A1D70Z Performance of Urinary Filtration, Intermittent, Less than 6 Hours Per Day (ICD-10-PCS; 2018-11-22)
DX: M00.9 Pyogenic arthritis, unspecified (principal); N18.6 End stage renal disease; K29.71 Gastritis, unspecified, with bleeding; M86.18 Other acute osteomyelitis, other site; E46 Unspecified protein-calorie malnutrition; I13.11 Hypertensive heart and chronic kidney disease without heart failure, with stage 5 chronic kidney disease, or end stage renal disease; D61.818 Other pancytopenia; C22.0 Liver cell carcinoma; I12.0 Hypertensive chronic kidney disease with stage 5 chronic kidney disease or end stage renal disease; K76.6 Portal hypertension; M86.8X6 Other osteomyelitis, lower leg; M00.861 Arthritis due to other bacteria, right knee; D53.9 Nutritional anemia, unspecified; E11.69 Type 2 diabetes mellitus with other specified complication; D69.6 Thrombocytopenia, unspecified; E11.22 Type 2 diabetes mellitus with diabetic chronic kidney disease; E87.5 Hyperkalemia; M17.9 Osteoarthritis of knee, unspecified; G89.29 Other chronic pain; B19.20 Unspecified viral hepatitis C without hepatic coma; M75.01 Adhesive capsulitis of right shoulder; S46.212A Strain of muscle, fascia and tendon of other parts of biceps, left arm, initial encounter; Z99.2 Dependence on renal dialysis; M21.70 Unequal limb length (acquired), unspecified site; V89.2XXA Person injured in unspecified motor-vehicle accident, traffic, initial encounter; Y92.410 Unspecified street and highway as the place of occurrence of the external cause; E11.649 Type 2 diabetes mellitus with hypoglycemia without coma; E78.5 Hyperlipidemia, unspecified; I25.10 Atherosclerotic heart disease of native coronary artery without angina pectoris; K74.60 Unspecified cirrhosis of liver; Z85.05 Personal history of malignant neoplasm of liver; Z86.718 Personal history of other venous thrombosis and embolism; Z96.651 Presence of right artificial knee joint; M75.120 Complete rotator cuff tear or rupture of unspecified shoulder, not specified as traumatic; E63.1 Imbalance of constituents of food intake; R26.9 Unspecified abnormalities of gait and mobility; I45.10 Unspecified right bundle-branch block; K31.89 Other diseases of stomach and duodenum; M21.10 Varus deformity, not elsewhere classified, unspecified site
CPT/HCPCS: 20611; 36415; 71045; 73221; 73552; 73560; 73590; 73721; 76942; 80048; 80051; 80202; 82105; 82270; 82607; 82728; 82746; 82947; 82962; 83010; 83036; 83540; 83550; 83615; 83735; 83880; 84100; 84145; 84484; 85014; 85018; 85044; 85384; 85651; 86141; 86705; 86709; 86803; 86850; 86900; 86920; 86927; 87070; 87075; 87340; 87389; 88305; 88307; 88311; 88312; 88313; 89060; 93005; 93306; 93970; 97110; 97162; 97166; 97168; 97530; 97535; 99285; C1893; J0696; J0885; J1170; J1200; J1644; J1815; J2060; J2175; J2250; J2405; J2704; J2710; J2765; J3010; J3370; J3490; J7030; J7040; J7050; J7060; P9016; P9017

== ENCOUNTER 2018-11-23 16:01 | Inpatient (IN) | payer OTHER, MEDICARE ==
[~2018-11-23] VITALS: Ht 165.1 cm; Wt 73.0 kg
[2018-11-23] MEDS ORDERED: EPOETIN ALFA 4000UNITS/ML VIAL SUBCUT ONE (17:00)
[2018-11-23] MEDS: BLOOD SUGAR DIAGNOSTIC STRIP TEST SCH ×2 (17:00→21:00)
[2018-11-23] MEDS ORDERED: DEXTROSE 50% WATER 50ML SYRINGE IV PRN ×2 (17:00→17:30)
[2018-11-23] MEDS ORDERED: ACETAMINOPHEN 325MG TABLET PO ONE (17:00)
[2018-11-23] MEDS ORDERED: MAGNESIUM/ALUMINUM HYDROXIDE/SIMETHICONE 30ML UDC PO ONE (17:00)
[2018-11-23] MEDS ORDERED: ONDANSETRON 4MG ODT PO PRN (17:00)
[2018-11-23] MEDS: DOCUSATE SODIUM 100MG CAPSULE PO SCH (17:00)
[2018-11-23 17:26] VITALS: BP 169/70
[2018-11-23] MEDS ORDERED: POLYETHYLENE GLYCOL 3350 (17GM) 1 DOSE PACK PO SCH (17:30)
[2018-11-23] MEDS ORDERED: INSULIN LISPRO 100 UNITS/ML SUBCUT SCH (17:30)
[2018-11-23] MEDS ORDERED: LISINOPRIL 20MG TABLET PO SCH (17:30)
[2018-11-23] MEDS ORDERED: DOCUSATE SODIUM 100MG CAPSULE PO SCH (17:30)
[2018-11-23] MEDS ORDERED: BLOOD SUGAR DIAGNOSTIC STRIP TEST SCH (17:30)
[2018-11-23 17:50] VITALS: BP 169/70
[2018-11-23] MEDS: DIPHENHYDRAMINE 50MG CAPSULE PO PRN ×2 (18:26→23:20)
[2018-11-23] MEDS: OXYCODONE HCL 5MG TABLET PO PRN (18:26)
[2018-11-23] MEDS: CLONIDINE 0.1MG TABLET PO PRN (18:26)
[2018-11-23] MEDS: INSULIN LISPRO 100 UNITS/ML SUBCUT SCH ×2 (18:30→21:00)
[2018-11-23 20:00] VITALS: BP 140/65
[2018-11-23 20:41] LABS: BASOPHILS % 0.9 % (0.0-2.0); CHLORIDE 107 mEq/L (98-107); EOSINOPHILS % 9.2 % (0.0-5.0); LYMPHOCYTES % 28.9 % (20.0-50.0); MEAN CORPUSCULAR VOLUME 95.3 fL (80.0-94.0); MEAN PLATELET VOLUME 8.3 fl (7.4-10.4); MONOCYTES % 9.8 % (2.0-8.0); NEUTROPHILS % 51.2 % (40.0-76.0); PLATELET 60 x1000/uL (130-400); RED BLOOD CELL COUNT 2.06 mill/uL (4.7-6.1); RED CELL DISTRIBUTION WIDTH 18.4 % (11.6-14.6)
[2018-11-23 20:48] LABS: HEMOGLOBIN. 6.6 g/dL (14.0-18.0)
[2018-11-23 20:49] LABS: HEMATOCRIT. 19.6 % (42.0-52.0)
[2018-11-23] MEDS: POLYETHYLENE GLYCOL 3350 (17GM) 1 DOSE PACK PO SCH (21:00)
[2018-11-23] MEDS: EPOETIN ALFA 4000UNITS/ML VIAL SUBCUT SCH (21:00)
[2018-11-23] MEDS: HYDROMORPHONE HCL 2MG TABLET PO SCH (23:22)
[2018-11-23] MEDS: DOXYCYCLINE HYCLATE 100MG CAPSULE PO SCH (23:22)
[2018-11-23] MEDS: TRAZODONE HCL 100MG TABLET PO SCH (23:23)
[2018-11-24] VITALS (9 sets, daily range): BP systolic 125–170; BP diastolic 65–92
[2018-11-24] MEDS: DIPHENHYDRAMINE 50MG CAPSULE PO PRN
[2018-11-24] MEDS ORDERED: LORAZEPAM 2MG/ML CPJ IV PRN (01:30)
[2018-11-24] MEDS: CLONIDINE 0.1MG TABLET PO PRN ×2 (04:41→17:19)
[2018-11-24] MEDS: BLOOD SUGAR DIAGNOSTIC STRIP TEST SCH ×4 (06:39→21:00)
[2018-11-24] MEDS: LISINOPRIL 20MG TABLET PO SCH (08:50)
[2018-11-24] MEDS: DOXYCYCLINE HYCLATE 100MG CAPSULE PO SCH (08:50)
[2018-11-24] MEDS: DOCUSATE SODIUM 100MG CAPSULE PO SCH ×2 (09:00→16:41)
[2018-11-24] MEDS: INSULIN LISPRO 100 UNITS/ML SUBCUT SCH ×4 (09:00→21:00)
[2018-11-24] MEDS: HYDROMORPHONE HCL 2MG TABLET PO SCH (09:00)
[2018-11-24] MEDS: THIAMINE HCL 100MG TABLET PO SCH (09:00)
[2018-11-24] MEDS: LIDOCAINE 5% PATCH TOP SCH (09:00)
[2018-11-24] MEDS: AMLODIPINE 5MG TABLET PO SCH (16:18)
[2018-11-24] MEDS ORDERED: HYDROMORPHONE HCL 2MG TABLET PO PRN (16:45)
[2018-11-24 17:32] LABS: INR 1.2; PARTIAL THROMBOPLASTIN TIME 30.9 sec (23.4-31.0); PROTHROMBIN TIME 12.6 sec (9.6-11.0)
[2018-11-24 17:41] LABS: BASOPHILS % 0.7 % (0.0-2.0); EOSINOPHILS % 9.3 % (0.0-5.0); HEMATOCRIT. 22.9 % (42.0-52.0); HEMOGLOBIN. 7.7 g/dL (14.0-18.0); LYMPHOCYTES % 29.1 % (20.0-50.0); MEAN CORPUSCULAR HEMOGLOBIN 31.9 pg (28.0-32.0); MEAN CORPUSCULAR VOLUME 95.1 fL (80.0-94.0); MEAN PLATELET VOLUME 8.7 fl (7.4-10.4); MONOCYTES % 8.4 % (2.0-8.0); NEUTROPHILS % 52.5 % (40.0-76.0); PLATELET 61 x1000/uL (130-400); RED BLOOD CELL COUNT 2.41 mill/uL (4.7-6.1); RED CELL DISTRIBUTION WIDTH 17.2 % (11.6-14.6)
[2018-11-24] MEDS: POLYETHYLENE GLYCOL 3350 (17GM) 1 DOSE PACK PO SCH (21:00)
[2018-11-25] MEDS: DOXYCYCLINE HYCLATE 100MG CAPSULE PO SCH ×3 (05:10→20:26)
[2018-11-25] MEDS: TRAZODONE HCL 100MG TABLET PO SCH ×2 (05:10→20:27)
[2018-11-25] MEDS: DIPHENHYDRAMINE 50MG CAPSULE PO PRN (05:35)
[2018-11-25 07:00] LABS: CHLORIDE 109 mEq/L (98-107)
[2018-11-25] MEDS: BLOOD SUGAR DIAGNOSTIC STRIP TEST SCH ×4 (07:04→21:00)
[2018-11-25 07:07] LABS: HEMATOCRIT 21.3 % (42.0-52.0); HEMOGLOBIN 7.3 g/dL (14.0-18.0); MEAN CORPUSCULAR HEMOGLOBIN 32.6 pg (28.0-32.0); MEAN CORPUSCULAR VOLUME 95.3 fL (80.0-94.0); PLATELET 69 x1000/uL (130-400); RED BLOOD CELL COUNT 2.24 mill/uL (4.7-6.1); RED CELL DISTRIBUTION WIDTH 17.3 % (11.6-14.6)
[2018-11-25 08:05] VITALS: BP 168/79
[2018-11-25] MEDS: INSULIN LISPRO 100 UNITS/ML SUBCUT SCH ×4 (08:09→21:00)
[2018-11-25] MEDS: LISINOPRIL 20MG TABLET PO SCH ×2 (09:05→20:28)
[2018-11-25] MEDS: DOCUSATE SODIUM 100MG CAPSULE PO SCH ×2 (09:06→17:00)
[2018-11-25] MEDS: THIAMINE HCL 100MG TABLET PO SCH (09:06)
[2018-11-25] MEDS: AMLODIPINE 5MG TABLET PO SCH (09:06)
[2018-11-25] MEDS: LIDOCAINE 5% PATCH TOP SCH (09:07)
[2018-11-25 10:51] VITALS: BP 178/78
[2018-11-25] MEDS: OXYCODONE HCL 5MG TABLET PO PRN (10:53)
[2018-11-25] MEDS: CLONIDINE 0.1MG TABLET PO PRN (11:09)
[2018-11-25 12:11] VITALS: BP 143/87
[2018-11-25] MEDS: MORPHINE SULFATE 15MG TABLET SR PO SCH ×2 (13:41→20:27)
[2018-11-25] MEDS: NIFEDIPINE XL 60MG TAB PO SCH (13:53)
[2018-11-25 15:16] VITALS: BP 180/66
[2018-11-25] MEDS ORDERED: CLONIDINE 0.1MG TABLET PO NR (15:30)
[2018-11-25 17:31] VITALS: BP 156/74
[2018-11-25 20:00] VITALS: BP 140/53
[2018-11-25] MEDS: POLYETHYLENE GLYCOL 3350 (17GM) 1 DOSE PACK PO SCH (20:28)
[2018-11-26 06:37] LABS: BASOPHILS % 1.2 % (0.0-2.0); EOSINOPHILS % 6.8 % (0.0-5.0); LYMPHOCYTES % 29.3 % (20.0-50.0); MEAN CORPUSCULAR HEMOGLOBIN 32.7 pg (28.0-32.0); MEAN CORPUSCULAR VOLUME 95.7 fL (80.0-94.0); MEAN PLATELET VOLUME 8.6 fl (7.4-10.4); MONOCYTES % 6.6 % (2.0-8.0); NEUTROPHILS % 56.1 % (40.0-76.0); PLATELET 80 x1000/uL (130-400); RED BLOOD CELL COUNT 2.08 mill/uL (4.7-6.1); RED CELL DISTRIBUTION WIDTH 17.5 % (11.6-14.6)
[2018-11-26] MEDS: BLOOD SUGAR DIAGNOSTIC STRIP TEST SCH ×4 (06:37→21:04)
[2018-11-26 07:00] LABS: CHLORIDE 111 mEq/L (98-107)
[2018-11-26 07:11] LABS: PROSTRATE SPECIFIC AG TOTAL 0.48 ng/mL (0.0-4.0)
[2018-11-26 07:16] LABS: TOTAL IRON BINDING CAPACITY 155 ug/dL (250-450)
[2018-11-26] MEDS: INSULIN LISPRO 100 UNITS/ML SUBCUT SCH ×4 (07:29→21:00)
[2018-11-26 07:36] LABS: HEMATOCRIT. 19.9 % (42.0-52.0); HEMOGLOBIN. 6.8 g/dL (14.0-18.0)
[2018-11-26 07:43] VITALS: BP 110/47
[2018-11-26 08:02] LABS: FOLIC ACID (FOLATE) SERUM 10.7 ng/mL (>5.38)
[2018-11-26] MEDS: NIFEDIPINE XL 60MG TAB PO SCH (08:08)
[2018-11-26] MEDS: LISINOPRIL 20MG TABLET PO SCH ×2 (08:09→21:00)
[2018-11-26 08:18] VITALS: BP 110/47
[2018-11-26] MEDS: DOCUSATE SODIUM 100MG CAPSULE PO SCH ×2 (08:38→17:00)
[2018-11-26] MEDS: DOXYCYCLINE HYCLATE 100MG CAPSULE PO SCH (08:38)
[2018-11-26] MEDS: MORPHINE SULFATE 15MG TABLET SR PO SCH ×2 (08:38→21:03)
[2018-11-26] MEDS: THIAMINE HCL 100MG TABLET PO SCH (08:38)
[2018-11-26] MEDS: LIDOCAINE 5% PATCH TOP SCH ×2 (08:38→08:48)
[2018-11-26] MEDS ORDERED: MAGNESIUM 1 G PREMIX 100 ML IV NR (11:30)
[2018-11-26] MEDS: CALCIUM ACETATE 667MG CAPSULE PO SCH (17:44)
[2018-11-26 20:00] VITALS: BP 127/59
[2018-11-26] MEDS: POLYETHYLENE GLYCOL 3350 (17GM) 1 DOSE PACK PO SCH (21:00)
[2018-11-27] MEDS: DIPHENHYDRAMINE 50MG CAPSULE PO PRN ×2 (00:18→21:03)
[2018-11-27 02:40] VITALS: BP 114/50
[2018-11-27 02:55] VITALS: BP 130/59
[2018-11-27] MEDS: EPOETIN ALFA 4000UNITS/ML VIAL SUBCUT SCH (03:30)
[2018-11-27] MEDS: DOXYCYCLINE HYCLATE 100MG CAPSULE PO SCH ×3 (03:30→20:57)
[2018-11-27] MEDS: TRAZODONE HCL 100MG TABLET PO SCH ×2 (03:30→20:56)
[2018-11-27 06:33] LABS: BASOPHILS % 0.9 % (0.0-2.0); EOSINOPHILS % 5.2 % (0.0-5.0); HEMATOCRIT. 22.8 % (42.0-52.0); HEMOGLOBIN. 7.9 g/dL (14.0-18.0); LYMPHOCYTES % 22.2 % (20.0-50.0); MEAN CORPUSCULAR HEMOGLOBIN 32.8 pg (28.0-32.0); MEAN CORPUSCULAR VOLUME 94.3 fL (80.0-94.0); MEAN PLATELET VOLUME 8.6 fl (7.4-10.4); MONOCYTES % 7.6 % (2.0-8.0); NEUTROPHILS % 64.1 % (40.0-76.0); PLATELET 77 x1000/uL (130-400); RED BLOOD CELL COUNT 2.41 mill/uL (4.7-6.1); RED CELL DISTRIBUTION WIDTH 16.4 % (11.6-14.6)
[2018-11-27] MEDS: BLOOD SUGAR DIAGNOSTIC STRIP TEST SCH ×4 (07:11→21:05)
[2018-11-27] MEDS: INSULIN LISPRO 100 UNITS/ML SUBCUT SCH ×4 (07:12→21:00)
[2018-11-27 08:00] VITALS: BP 136/55
[2018-11-27 08:20] LABS: IMMUNOGLOBULIN A 506 mg/dL (61-437); IMMUNOGLOBULIN G 2268 mg/dL (700-1600); IMMUNOGLOBULIN M 120 mg/dL (20-172)
[2018-11-27 08:32] LABS: PHOSPHORUS 5.3 mg/dL (2.5-4.9)
[2018-11-27] MEDS: DOCUSATE SODIUM 100MG CAPSULE PO SCH ×3 (09:00→16:43)
[2018-11-27] MEDS: LIDOCAINE 5% PATCH TOP SCH (09:00)
[2018-11-27] MEDS: LISINOPRIL 20MG TABLET PO SCH ×2 (09:17→20:57)
[2018-11-27] MEDS: THIAMINE HCL 100MG TABLET PO SCH (09:17)
[2018-11-27] MEDS: CALCIUM ACETATE 667MG CAPSULE PO SCH ×3 (09:18→16:40)
[2018-11-27] MEDS: OXYCODONE HCL 5MG TABLET PO PRN ×3 (09:29→20:51)
[2018-11-27] MEDS ORDERED: MAGNESIUM 2 G PREMIX 50 ML IV NR (13:00)
[2018-11-27] MEDS: LACTULOSE 20G/30ML UDC PO SCH ×2 (16:43→21:00)
[2018-11-27 20:00] VITALS: BP 133/73
[2018-11-27] MEDS: MORPHINE SULFATE 15MG TABLET SR PO SCH (21:00)
[2018-11-27] MEDS: POLYETHYLENE GLYCOL 3350 (17GM) 1 DOSE PACK PO SCH (21:00)
[2018-11-28 06:36] LABS: BASOPHILS % 1.5 % (0.0-2.0); EOSINOPHILS % 6.3 % (0.0-5.0); HEMATOCRIT. 26.3 % (42.0-52.0); HEMOGLOBIN. 8.8 g/dL (14.0-18.0); LYMPHOCYTES % 30.5 % (20.0-50.0); MEAN CORPUSCULAR HEMOGLOBIN 32.8 pg (28.0-32.0); MEAN CORPUSCULAR VOLUME 98.4 fL (80.0-94.0); MEAN PLATELET VOLUME 8.8 fl (7.4-10.4); MONOCYTES % 7.4 % (2.0-8.0); NEUTROPHILS % 54.3 % (40.0-76.0); PLATELET 70 x1000/uL (130-400); RED BLOOD CELL COUNT 2.67 mill/uL (4.7-6.1); RED CELL DISTRIBUTION WIDTH 17.8 % (11.6-14.6)
[2018-11-28] MEDS: OXYCODONE HCL 5MG TABLET PO PRN ×4 (07:59→23:50)
[2018-11-28] MEDS: LISINOPRIL 20MG TABLET PO SCH ×2 (08:00→23:14)
[2018-11-28] MEDS: CALCIUM ACETATE 667MG CAPSULE PO SCH ×3 (08:00→17:10)
[2018-11-28] MEDS: DOXYCYCLINE HYCLATE 100MG CAPSULE PO SCH ×2 (08:00→23:14)
[2018-11-28] MEDS: LACTULOSE 20G/30ML UDC PO SCH (08:01)
[2018-11-28] MEDS: THIAMINE HCL 100MG TABLET PO SCH (08:01)
[2018-11-28] MEDS: LIDOCAINE 5% PATCH TOP SCH (08:01)
[2018-11-28] MEDS: DOCUSATE SODIUM 100MG CAPSULE PO SCH ×2 (08:01→17:00)
[2018-11-28] MEDS: INSULIN LISPRO 100 UNITS/ML SUBCUT SCH ×4 (08:02→21:00)
[2018-11-28 08:37] VITALS: BP 134/71
[2018-11-28] MEDS: BLOOD SUGAR DIAGNOSTIC STRIP TEST SCH ×3 (11:15→21:00)
[2018-11-28] MEDS: CLONIDINE 0.1MG TABLET PO PRN (19:35)
[2018-11-28 20:00] VITALS: BP 192/73
[2018-11-28] MEDS: MORPHINE SULFATE 15MG TABLET SR PO SCH (21:00)
[2018-11-28] MEDS: POLYETHYLENE GLYCOL 3350 (17GM) 1 DOSE PACK PO SCH (21:00)
[2018-11-28] MEDS: DIPHENHYDRAMINE 50MG CAPSULE PO PRN (22:00)
[2018-11-28 23:10] VITALS: BP 152/56
[2018-11-28] MEDS: TRAZODONE HCL 100MG TABLET PO SCH (23:13)
[2018-11-28] MEDS: EPOETIN ALFA 4000UNITS/ML VIAL SUBCUT SCH (23:15)
[2018-11-29] MEDS: BLOOD SUGAR DIAGNOSTIC STRIP TEST SCH ×4 (06:22→21:08)
[2018-11-29] MEDS: INSULIN LISPRO 100 UNITS/ML SUBCUT SCH ×4 (06:23→21:00)
[2018-11-29] MEDS: LISINOPRIL 20MG TABLET PO SCH ×2 (07:52→19:12)
[2018-11-29] MEDS: CLONIDINE 0.1MG TABLET PO PRN ×3 (07:52→19:12)
[2018-11-29 08:13] VITALS: BP 182/66
[2018-11-29] MEDS: DOXYCYCLINE HYCLATE 100MG CAPSULE PO SCH ×2 (08:20→21:14)
[2018-11-29] MEDS: DOCUSATE SODIUM 100MG CAPSULE PO SCH ×2 (08:20→16:45)
[2018-11-29] MEDS: CALCIUM ACETATE 667MG CAPSULE PO SCH ×3 (08:20→16:45)
[2018-11-29] MEDS: THIAMINE HCL 100MG TABLET PO SCH (08:20)
[2018-11-29 08:21] LABS: BASOPHILS % 0.9 % (0.0-2.0); EOSINOPHILS % 8.5 % (0.0-5.0); HEMATOCRIT. 24.1 % (42.0-52.0); HEMOGLOBIN. 8.1 g/dL (14.0-18.0); LYMPHOCYTES % 28.8 % (20.0-50.0); MEAN CORPUSCULAR HEMOGLOBIN 32.5 pg (28.0-32.0); MEAN CORPUSCULAR VOLUME 97.1 fL (80.0-94.0); MEAN PLATELET VOLUME 8.9 fl (7.4-10.4); NEUTROPHILS % 54.8 % (40.0-76.0); PLATELET 61 x1000/uL (130-400); RED BLOOD CELL COUNT 2.48 mill/uL (4.7-6.1); RED CELL DISTRIBUTION WIDTH 17.5 % (11.6-14.6)
[2018-11-29] MEDS: LIDOCAINE 5% PATCH TOP SCH (08:23)
[2018-11-29 09:05] VITALS: BP 126/54
[2018-11-29 09:17] VITALS: BP 126/54
[2018-11-29] MEDS: OXYCODONE HCL 5MG TABLET PO PRN ×2 (10:53→17:35)
[2018-11-29 13:10] LABS: 25-HYDROXY VITAMIN D3 9.1 ng/mL (.)
[2018-11-29] MEDS ORDERED: NIFEDIPINE XL 60MG TAB PO NR (15:30)
[2018-11-29 17:12] VITALS: BP 122/65
[2018-11-29] MEDS: TRAZODONE HCL 100MG TABLET PO SCH (19:19)
[2018-11-29 20:00] VITALS: BP 196/74
[2018-11-29] MEDS: POLYETHYLENE GLYCOL 3350 (17GM) 1 DOSE PACK PO SCH (21:00)
[2018-11-29] MEDS: MORPHINE SULFATE 15MG TABLET SR PO SCH (21:00)
[2018-11-29 21:30] VITALS: BP 177/67
[2018-11-30] MEDS ORDERED: NIFEDIPINE XL 60MG TAB PO SCH (09:00)
[2019-01-07] MEDS ORDERED: LACT1CAP77 PO (12:09)
[2019-01-07] MEDS ORDERED: KEPP500 MT (12:09)
[2019-01-07] MEDS ORDERED: IPRA3AMP9 HHN (12:09)
[2019-01-08] MEDS ORDERED: METR500T MT (20:45)
== END 2018-11-29 22:15 | DRG 553 ==
PROVIDERS: ADMIT Physical Medicine & Rehabilitation Spinal Cord Injury Medicine; ATTEND Internal Medicine Nephrology
PROC: 0JPT3XZ Removal of Tunneled Vascular Access Device from Trunk Subcutaneous Tissue and Fascia, Percutaneous Approach (ICD-10-PCS; principal; 2018-11-24)
PROC: 30233N1 Transfusion of Nonautologous Red Blood Cells into Peripheral Vein, Percutaneous Approach (ICD-10-PCS; 2018-11-24)
PROC: 5A1D70Z Performance of Urinary Filtration, Intermittent, Less than 6 Hours Per Day (ICD-10-PCS; 2018-11-26)
PROC: 5A1D70Z Performance of Urinary Filtration, Intermittent, Less than 6 Hours Per Day (ICD-10-PCS; 2018-11-28)
DX: M17.0 Bilateral primary osteoarthritis of knee (principal); E43 Unspecified severe protein-calorie malnutrition; N18.6 End stage renal disease; M86.68 Other chronic osteomyelitis, other site; C22.0 Liver cell carcinoma; D61.818 Other pancytopenia; I12.0 Hypertensive chronic kidney disease with stage 5 chronic kidney disease or end stage renal disease; M00.9 Pyogenic arthritis, unspecified; K76.6 Portal hypertension; N25.81 Secondary hyperparathyroidism of renal origin; E11.69 Type 2 diabetes mellitus with other specified complication; D63.8 Anemia in other chronic diseases classified elsewhere; R53.81 Other malaise; M19.011 Primary osteoarthritis, right shoulder; M75.21 Bicipital tendinitis, right shoulder; M66.812 Spontaneous rupture of other tendons, left shoulder; R79.89 Other specified abnormal findings of blood chemistry; G89.4 Chronic pain syndrome; K29.60 Other gastritis without bleeding; M21.70 Unequal limb length (acquired), unspecified site; D50.9 Iron deficiency anemia, unspecified; B19.20 Unspecified viral hepatitis C without hepatic coma; K31.89 Other diseases of stomach and duodenum; D53.9 Nutritional anemia, unspecified; E11.22 Type 2 diabetes mellitus with diabetic chronic kidney disease; K74.60 Unspecified cirrhosis of liver; Z96.651 Presence of right artificial knee joint; I45.10 Unspecified right bundle-branch block; M75.121 Complete rotator cuff tear or rupture of right shoulder, not specified as traumatic; Z68.26 Body mass index [BMI] 26.0-26.9, adult; Z83.3 Family history of diabetes mellitus; Z82.49 Family history of ischemic heart disease and other diseases of the circulatory system; Z99.2 Dependence on renal dialysis
CPT/HCPCS: 36415; 36589; 71045; 80048; 82270; 82306; 82607; 82728; 82746; 82784; 82962; 83540; 83550; 83735; 84100; 84134; 84153; 84443; 85027; 86334; 86850; 86900; 86920; 87070; 93970; 97110; 97162; 97167; 97530; 97535; J0885; J2060; J3475; J7040; J7050; P9016; Q0163; G0103

== ENCOUNTER 2018-12-17 01:00 | Inpatient (IN) | payer MEDICARE, MEDICAID, OTHER ==
[~2018-12-17] VITALS: Ht 172.7 cm; Wt 70.8 kg
[2018-12-17 03:44] LABS: BASOPHILS % 0.8 % (0.0-2.0); EOSINOPHILS % 6.9 % (0.0-5.0); HEMATOCRIT. 33.5 % (42.0-52.0); HEMOGLOBIN. 11.2 g/dL (14.0-18.0); LYMPHOCYTES % 22.3 % (20.0-50.0); MEAN CORPUSCULAR HEMOGLOBIN 32.7 pg (28.0-32.0); MEAN CORPUSCULAR VOLUME 98.3 fL (80.0-94.0); MONOCYTES % 10.4 % (2.0-8.0); NEUTROPHILS % 59.6 % (40.0-76.0); PLATELET 76 x1000/uL (130-400); RED BLOOD CELL COUNT 3.41 mill/uL (4.7-6.1); RED CELL DISTRIBUTION WIDTH 21.6 % (11.6-14.6)
[2018-12-17 03:47] LABS: INR 1.1; PROTHROMBIN TIME 11.4 sec (9.6-11.0)
[2018-12-17 03:50] LABS: CHLORIDE 104 mEq/L (98-107)
[2018-12-17 08:45] VITALS: BP 140/70
[2018-12-17 09:37] LABS: CLARITY URINE CLEAR (CLEAR); COLOR URINE YELLOW (YELLOW); KETONES URINE NEGATIVE (NEGATIVE); LEUKOCYTE ESTERASE URINE NEGATIVE (NEGATIVE); NITRITE URINE NEGATIVE (NEGATIVE); OCCULT BLOOD URINE TRACE (NEGATIVE); PH URINE 7.5 (4.5-8.0); PROTEIN URINE 1+ (NEGATIVE); SPECIFIC GRAVITY URINE 1.005 (1.005-1.030); UROBILINOGEN URINE 0.2 E.U./dL (0.2-1.0)
[2018-12-17] MEDS ORDERED: HYDROCODONE/ACETAMINOPHEN 5/325MG TABLET PO PRN (10:45)
[2018-12-17] MEDS ORDERED: MEDICATION NOT ON FORMULARY EA (Lactulose 15 ML) MT SCH (10:45)
[2018-12-17] MEDS ORDERED: CYANOCOBALAMIN MT SCH (10:45)
[2018-12-17] MEDS: CLONIDINE 0.1MG TABLET PO SCH (10:45)
[2018-12-17] MEDS ORDERED: ERGOCALCIFEROL 5000 UNIT PO SCH (10:45)
[2018-12-17] MEDS ORDERED: LACTULOSE 20G/30ML UDC PO PRN (11:30)
[2018-12-17] MEDS ORDERED: CLONIDINE 0.1MG TABLET PO SCH (11:30)
[2018-12-17 12:00] VITALS: BP 204/86
[2018-12-17] MEDS ORDERED: BLOOD SUGAR DIAGNOSTIC STRIP TEST SCH (12:40)
[2018-12-17] MEDS: CYANOCOBALAMIN/FA/PYRIDOXINE TABLET PO SCH ×2 (12:45→14:33)
[2018-12-17] MEDS: BACLOFEN 10MG TABLET PO SCH ×2 (12:45→16:33)
[2018-12-17] MEDS: GABAPENTIN 300MG CAPSULE PO SCH ×2 (12:46→16:33)
[2018-12-17 13:00] VITALS: BP 145/61
[2018-12-17] MEDS ORDERED: MEDICATION NOT ON FORMULARY EA (Gabapentin 300 MG) PO SCH (13:00)
[2018-12-17] MEDS ORDERED: MEDICATION NOT ON FORMULARY EA (Hydralazine Hcl 100 MG) PO SCH (13:00)
[2018-12-17] MEDS ORDERED: MEDICATION NOT ON FORMULARY EA (Baclofen 10 MG) PO SCH (13:00)
[2018-12-17] MEDS: INSULIN LISPRO 100 UNITS/ML SUBCUT SCH ×3 (13:00→21:00)
[2018-12-17] MEDS: HYDRALAZINE HCL 100MG TABLET PO SCH ×2 (14:32→22:47)
[2018-12-17 16:00] VITALS: BP 146/62
[2018-12-17] MEDS ORDERED: MEDICATION NOT ON FORMULARY EA (Metoprolol Tartrate 50 MG) PO SCH (17:00)
[2018-12-17] MEDS ORDERED: MAGNESIUM/ALUMINUM HYDROXIDE/SIMETHICONE 30ML UDC PO PRN (17:00)
[2018-12-17] MEDS ORDERED: GLIPIZIDE 10MG TABLET PO SCH (17:00)
[2018-12-17] MEDS ORDERED: DEXTROSE 50% WATER 50ML SYRINGE IV PRN (17:00)
[2018-12-17] MEDS ORDERED: DOCUSATE SODIUM 100MG CAPSULE PO PRN (17:00)
[2018-12-17] MEDS ORDERED: CALCIUM CARBONATE MT SCH (17:00)
[2018-12-17] MEDS: BLOOD SUGAR DIAGNOSTIC STRIP TEST SCH ×2 (17:11→21:00)
[2018-12-17] MEDS: GLIPIZIDE 10MG TABLET PO SCH (18:07)
[2018-12-17] MEDS: CALCIUM CARBONATE 1,250 MG/5 ML UDC PO SCH (18:40)
[2018-12-17 20:00] VITALS: BP 187/70
[2018-12-17 20:00] LABS: *AMPHETAMINES SCREEN URINE NEGATIVE (NEGATIVE)
[2018-12-17 20:01] LABS: *BARBITURATES SCREEN URINE NEGATIVE (NEGATIVE); *BENZODIAZEPINES SCREEN URINE NEGATIVE (NEGATIVE); *COCAINE SCREEN URINE NEGATIVE (NEGATIVE); METHADONE URINE SCREEN NEGATIVE (NEGATIVE); OPIATES URINE SCREEN NEGATIVE (NEGATIVE); PHENCYCLIDINE URINE SCREEN NEGATIVE (NEGATIVE)
[2018-12-17 20:02] LABS: CANNABINOID URINE SCREEN NEGATIVE (NEGATIVE)
[2018-12-17] MEDS ORDERED: MEDICATION NOT ON FORMULARY EA (Trazodone Hcl 100 MG) PO SCH (21:00)
[2018-12-17] MEDS: DEXTROSE 50% WATER 50ML SYRINGE IV PRN (22:29)
[2018-12-17] MEDS: METOPROLOL TARTRATE 50MG TABLET PO SCH (22:47)
[2018-12-17] MEDS: TRAZODONE HCL 100MG TABLET PO SCH (22:47)
[2018-12-18] VITALS: BP 170/61
[2018-12-18] MEDS: DEXTROSE 50% WATER 50ML SYRINGE IV PRN ×3 (00:33→06:00)
[2018-12-18] MEDS ORDERED: DEXTROSE 5% WATER 1,000 ML IV SCH (02:30)
[2018-12-18 03:47] LABS: HEMATOCRIT. 27.2 % (42.0-52.0); HEMOGLOBIN. 9.2 g/dL (14.0-18.0); MEAN CORPUSCULAR HEMOGLOBIN 32.9 pg (28.0-32.0); MEAN CORPUSCULAR VOLUME 96.8 fL (80.0-94.0); MEAN PLATELET VOLUME 8.2 fl (7.4-10.4); PLATELET 87 x1000/uL (130-400); RED BLOOD CELL COUNT 2.81 mill/uL (4.7-6.1); RED CELL DISTRIBUTION WIDTH 21.3 % (11.6-14.6)
[2018-12-18 04:00] VITALS: BP 157/67
[2018-12-18] MEDS: BLOOD SUGAR DIAGNOSTIC STRIP TEST SCH ×4 (06:14→21:02)
[2018-12-18 06:42] LABS: PLATELET ESTIMATE DECREASED
[2018-12-18 08:00] VITALS: BP 157/68
[2018-12-18] MEDS: GLIPIZIDE 10MG TABLET PO SCH ×2 (08:10→18:10)
[2018-12-18] MEDS ORDERED: DEXTROSE 10% WATER 500 ML IV SCH (08:15)
[2018-12-18] MEDS: CALCIUM CARBONATE 1,250 MG/5 ML UDC PO SCH ×2 (08:45→18:30)
[2018-12-18] MEDS: OMEPRAZOLE 20MG CAPSULE EXTENDED RELEASE PO SCH (08:45)
[2018-12-18] MEDS: CYANOCOBALAMIN/FA/PYRIDOXINE TABLET PO SCH (08:45)
[2018-12-18] MEDS: CLONIDINE 0.1MG TABLET PO SCH (08:47)
[2018-12-18] MEDS: METOPROLOL TARTRATE 50MG TABLET PO SCH ×2 (08:48→21:07)
[2018-12-18] MEDS: BACLOFEN 10MG TABLET PO SCH ×3 (08:48→18:14)
[2018-12-18] MEDS: GABAPENTIN 300MG CAPSULE PO SCH ×3 (08:48→18:14)
[2018-12-18] MEDS ORDERED: DEXTROSE 10% WATER 1,000 ML IV SCH ×2 (08:49→09:45)
[2018-12-18] MEDS ORDERED: ENOXAPARIN 30MG/0.3ML SYR SUBCUT SCH (09:00)
[2018-12-18] MEDS ORDERED: DEXT 10% WATER 1,000 ML IV SCH (09:00)
[2018-12-18] MEDS: MULTIVITAMINS,THER W-MINERALS TABLET PO SCH (09:45)
[2018-12-18] MEDS: FOLIC ACID 1MG TABLET PO SCH (09:45)
[2018-12-18] MEDS: THIAMINE HCL 100MG TABLET PO SCH (09:45)
[2018-12-18] MEDS: DEXT 10% WATER 1,000 ML IV SCH (10:34)
[2018-12-18 12:00] VITALS: BP 156/79
[2018-12-18] MEDS: HYDRALAZINE HCL 100MG TABLET PO SCH ×2 (13:31→21:08)
[2018-12-18 16:00] VITALS: BP 148/89
[2018-12-18 16:13] LABS: ETHANOL BLOOD < 10 mg/dL
[2018-12-18 16:45] LABS: FOLIC ACID (FOLATE) SERUM > 20.00 ng/mL (>5.38); VITAMIN B12 SERUM > 2000.0 pg/mL (211-911)
[2018-12-18 19:03] LABS: HEMATOCRIT 32.1 % (42.0-52.0); HEMOGLOBIN 10.7 g/dL (14.0-18.0)
[2018-12-18 20:00] VITALS: BP 129/79
[2018-12-18] MEDS: TRAZODONE HCL 100MG TABLET PO SCH (21:07)
[2018-12-19] VITALS (7 sets, daily range): BP systolic 107–158; BP diastolic 48–62
[2018-12-19] MEDS: BLOOD SUGAR DIAGNOSTIC STRIP TEST SCH ×4 (05:44→21:50)
[2018-12-19] MEDS: DEXTROSE 50% WATER 50ML SYRINGE IV PRN (05:44)
[2018-12-19 06:10] LABS: BASOPHILS % 0.5 % (0.0-2.0); EOSINOPHILS % 7.7 % (0.0-5.0); HEMATOCRIT. 30.5 % (42.0-52.0); HEMOGLOBIN. 10.5 g/dL (14.0-18.0); LYMPHOCYTES % 19.8 % (20.0-50.0); MEAN CORPUSCULAR HEMOGLOBIN 33.2 pg (28.0-32.0); MEAN PLATELET VOLUME 8.5 fl (7.4-10.4); MONOCYTES % 9.7 % (2.0-8.0); NEUTROPHILS % 62.3 % (40.0-76.0); PLATELET 113 x1000/uL (130-400); RED BLOOD CELL COUNT 3.18 mill/uL (4.7-6.1)
[2018-12-19] MEDS: HYDRALAZINE HCL 100MG TABLET PO SCH ×3 (06:17→21:50)
[2018-12-19] MEDS: OMEPRAZOLE 20MG CAPSULE EXTENDED RELEASE PO SCH (07:40)
[2018-12-19] MEDS: GLIPIZIDE 10MG TABLET PO SCH (08:10)
[2018-12-19] MEDS: CALCIUM CARBONATE 1,250 MG/5 ML UDC PO SCH ×2 (08:10→18:10)
[2018-12-19] MEDS: MULTIVITAMINS,THER W-MINERALS TABLET PO SCH (09:00)
[2018-12-19] MEDS: FOLIC ACID 1MG TABLET PO SCH (09:00)
[2018-12-19] MEDS: CLONIDINE 0.1MG TABLET PO SCH (09:00)
[2018-12-19] MEDS: BACLOFEN 10MG TABLET PO SCH ×3 (09:00→17:00)
[2018-12-19] MEDS: GABAPENTIN 300MG CAPSULE PO SCH (09:00)
[2018-12-19] MEDS: METOPROLOL TARTRATE 50MG TABLET PO SCH ×2 (09:00→21:49)
[2018-12-19] MEDS: CYANOCOBALAMIN/FA/PYRIDOXINE TABLET PO SCH (09:00)
[2018-12-19] MEDS: THIAMINE HCL 100MG TABLET PO SCH (09:00)
[2018-12-19] MEDS: DEXT 10% WATER 1,000 ML IV SCH (15:00)
[2018-12-20] VITALS: BP 142/63
[2018-12-20 04:00] VITALS: BP 133/68
[2018-12-20] MEDS: HYDRALAZINE HCL 100MG TABLET PO SCH ×3 (06:27→21:28)
[2018-12-20] MEDS: BLOOD SUGAR DIAGNOSTIC STRIP TEST SCH ×4 (06:35→21:28)
[2018-12-20 07:06] LABS: EOSINOPHILS % 7.1 % (0.0-5.0); HEMATOCRIT. 31.7 % (42.0-52.0); HEMOGLOBIN. 10.5 g/dL (14.0-18.0); LYMPHOCYTES % 23.4 % (20.0-50.0); MEAN CORPUSCULAR HEMOGLOBIN 32.3 pg (28.0-32.0); MEAN CORPUSCULAR VOLUME 97.3 fL (80.0-94.0); MEAN PLATELET VOLUME 8.4 fl (7.4-10.4); MONOCYTES % 11.1 % (2.0-8.0); NEUTROPHILS % 57.4 % (40.0-76.0); PLATELET 91 x1000/uL (130-400); RED BLOOD CELL COUNT 3.26 mill/uL (4.7-6.1); RED CELL DISTRIBUTION WIDTH 21.2 % (11.6-14.6)
[2018-12-20 08:19] VITALS: BP 154/59
[2018-12-20] MEDS: CYANOCOBALAMIN/FA/PYRIDOXINE TABLET PO SCH (08:26)
[2018-12-20] MEDS: FOLIC ACID 1MG TABLET PO SCH (08:26)
[2018-12-20] MEDS: MULTIVITAMINS,THER W-MINERALS TABLET PO SCH (08:26)
[2018-12-20] MEDS: OMEPRAZOLE 20MG CAPSULE EXTENDED RELEASE PO SCH (08:26)
[2018-12-20] MEDS: CLONIDINE 0.1MG TABLET PO SCH (08:27)
[2018-12-20] MEDS: METOPROLOL TARTRATE 50MG TABLET PO SCH ×2 (08:27→21:28)
[2018-12-20] MEDS: BACLOFEN 10MG TABLET PO SCH ×3 (08:27→18:18)
[2018-12-20] MEDS: THIAMINE HCL 100MG TABLET PO SCH (08:27)
[2018-12-20] MEDS: CALCIUM CARBONATE 1,250 MG/5 ML UDC PO SCH ×2 (08:28→18:18)
[2018-12-20 12:28] VITALS: BP 109/40
[2018-12-20] MEDS: LACTULOSE 20G/30ML UDC PO SCH ×2 (13:50→21:28)
[2018-12-20 16:15] VITALS: BP 155/51
[2018-12-20 20:00] VITALS: BP 176/76
[2018-12-21] VITALS: BP 165/67
[2018-12-21] MEDS: ACETAMINOPHEN 325MG TABLET PO PRN (01:39)
[2018-12-21 04:00] VITALS: BP 165/68
[2018-12-21] MEDS: BLOOD SUGAR DIAGNOSTIC STRIP TEST SCH ×4 (05:52→21:41)
[2018-12-21 06:12] LABS: BASOPHILS % 0.6 % (0.0-2.0); HEMATOCRIT. 30.9 % (42.0-52.0); HEMOGLOBIN. 10.4 g/dL (14.0-18.0); LYMPHOCYTES % 13.1 % (20.0-50.0); MEAN CORPUSCULAR HEMOGLOBIN 33.3 pg (28.0-32.0); MEAN CORPUSCULAR VOLUME 98.2 fL (80.0-94.0); MEAN PLATELET VOLUME 8.5 fl (7.4-10.4); MONOCYTES % 6.7 % (2.0-8.0); NEUTROPHILS % 75.6 % (40.0-76.0); PLATELET 102 x1000/uL (130-400); RED BLOOD CELL COUNT 3.14 mill/uL (4.7-6.1); RED CELL DISTRIBUTION WIDTH 20.9 % (11.6-14.6)
[2018-12-21] MEDS: HYDRALAZINE HCL 100MG TABLET PO SCH ×3 (06:52→21:42)
[2018-12-21] MEDS: OMEPRAZOLE 20MG CAPSULE EXTENDED RELEASE PO SCH (06:53)
[2018-12-21] MEDS: LACTULOSE 20G/30ML UDC PO SCH ×3 (07:08→21:42)
[2018-12-21 08:00] VITALS: BP 148/79
[2018-12-21] MEDS: CYANOCOBALAMIN/FA/PYRIDOXINE TABLET PO SCH (09:10)
[2018-12-21] MEDS: CALCIUM CARBONATE 1,250 MG/5 ML UDC PO SCH ×2 (09:10→18:28)
[2018-12-21] MEDS: METOPROLOL TARTRATE 50MG TABLET PO SCH ×2 (09:11→21:41)
[2018-12-21] MEDS: FOLIC ACID 1MG TABLET PO SCH (09:11)
[2018-12-21] MEDS: THIAMINE HCL 100MG TABLET PO SCH (09:11)
[2018-12-21] MEDS: MULTIVITAMINS,THER W-MINERALS TABLET PO SCH (09:11)
[2018-12-21] MEDS: BACLOFEN 10MG TABLET PO SCH (09:11)
[2018-12-21] MEDS: CLONIDINE 0.1MG TABLET PO SCH (09:11)
[2018-12-21] MEDS ORDERED: LACTULOSE 20G/30ML UDC PO NR (11:45)
[2018-12-21 12:00] VITALS: BP 159/60
[2018-12-21 16:00] VITALS: BP 114/49
[2018-12-21 20:00] VITALS: BP 111/45
[2018-12-22] VITALS: BP 135/60
[2018-12-22 04:00] VITALS: BP 152/67
[2018-12-22] MEDS: HYDRALAZINE HCL 100MG TABLET PO SCH ×3 (06:43→22:00)
[2018-12-22] MEDS: LACTULOSE 20G/30ML UDC PO SCH ×2 (06:43→14:58)
[2018-12-22 07:08] LABS: BASOPHILS % 0.9 % (0.0-2.0); EOSINOPHILS % 3.5 % (0.0-5.0); HEMATOCRIT. 30.6 % (42.0-52.0); HEMOGLOBIN. 10.3 g/dL (14.0-18.0); LYMPHOCYTES % 25.1 % (20.0-50.0); MEAN CORPUSCULAR HEMOGLOBIN 32.6 pg (28.0-32.0); MEAN CORPUSCULAR VOLUME 97.1 fL (80.0-94.0); MEAN PLATELET VOLUME 9.1 fl (7.4-10.4); MONOCYTES % 11.3 % (2.0-8.0); NEUTROPHILS % 59.2 % (40.0-76.0); PLATELET 76 x1000/uL (130-400); RED BLOOD CELL COUNT 3.16 mill/uL (4.7-6.1); RED CELL DISTRIBUTION WIDTH 20.5 % (11.6-14.6)
[2018-12-22] MEDS: BLOOD SUGAR DIAGNOSTIC STRIP TEST SCH ×4 (07:18→21:00)
[2018-12-22 08:00] VITALS: BP 133/60
[2018-12-22] MEDS: THIAMINE HCL 100MG TABLET PO SCH (08:48)
[2018-12-22] MEDS: CYANOCOBALAMIN/FA/PYRIDOXINE TABLET PO SCH (08:48)
[2018-12-22] MEDS: OMEPRAZOLE 20MG CAPSULE EXTENDED RELEASE PO SCH (08:48)
[2018-12-22] MEDS: CLONIDINE 0.1MG TABLET PO SCH (08:49)
[2018-12-22] MEDS: MULTIVITAMINS,THER W-MINERALS TABLET PO SCH (08:49)
[2018-12-22] MEDS: FOLIC ACID 1MG TABLET PO SCH (08:49)
[2018-12-22] MEDS: METOPROLOL TARTRATE 50MG TABLET PO SCH ×2 (08:49→21:00)
[2018-12-22] MEDS: CALCIUM CARBONATE 1,250 MG/5 ML UDC PO SCH ×2 (08:52→18:49)
[2018-12-22 12:00] VITALS: BP 128/79
[2018-12-22 16:00] VITALS: BP 116/54
[2018-12-22 20:00] VITALS: BP 104/51
[2018-12-23] VITALS: BP 110/64
[2018-12-23] MEDS: ACETAMINOPHEN 325MG TABLET PO PRN (02:31)
[2018-12-23 04:00] VITALS: BP 131/56
[2018-12-23] MEDS: HYDRALAZINE HCL 100MG TABLET PO SCH (06:00)
[2018-12-23 08:00] VITALS: BP 125/51
[2018-12-23] MEDS: BLOOD SUGAR DIAGNOSTIC STRIP TEST SCH ×2 (08:04→12:52)
[2018-12-23] MEDS: MULTIVITAMINS,THER W-MINERALS TABLET PO SCH (09:03)
[2018-12-23] MEDS: CLONIDINE 0.1MG TABLET PO SCH (09:04)
[2018-12-23] MEDS: CALCIUM CARBONATE 1,250 MG/5 ML UDC PO SCH (09:04)
[2018-12-23] MEDS: OMEPRAZOLE 20MG CAPSULE EXTENDED RELEASE PO SCH (09:04)
[2018-12-23] MEDS: THIAMINE HCL 100MG TABLET PO SCH (09:04)
[2018-12-23] MEDS: METOPROLOL TARTRATE 50MG TABLET PO SCH (09:05)
[2018-12-23] MEDS: FOLIC ACID 1MG TABLET PO SCH (09:05)
[2018-12-23] MEDS: CYANOCOBALAMIN/FA/PYRIDOXINE TABLET PO SCH (09:07)
[2018-12-23 12:00] VITALS: BP 130/79
[2019-01-07] MEDS ORDERED: KEPP500 MT (12:09)
[2019-01-07] MEDS ORDERED: LACT1CAP77 PO (12:09)
[2019-01-07] MEDS ORDERED: IPRA3AMP9 HHN (12:09)
[2019-01-08] MEDS ORDERED: METR500T MT (20:45)
== END 2018-12-23 14:00 | disposition left against medical advice (07) | DRG 91 ==
LOC: ER 01:00 → 7WST 04:39 → ENRESERV 07:11
PROVIDERS: ADMIT Internal Medicine Nephrology; ATTEND Internal Medicine Nephrology
PROC: 5A1D70Z Performance of Urinary Filtration, Intermittent, Less than 6 Hours Per Day (ICD-10-PCS; 2018-12-17)
PROC: 5A1D70Z Performance of Urinary Filtration, Intermittent, Less than 6 Hours Per Day (ICD-10-PCS; principal; 2018-12-19)
PROC: 4A00X4Z Measurement of Central Nervous Electrical Activity, External Approach (ICD-10-PCS; 2018-12-19)
PROC: 5A1D70Z Performance of Urinary Filtration, Intermittent, Less than 6 Hours Per Day (ICD-10-PCS; 2018-12-21)
DX: G92 Toxic encephalopathy (principal); N18.6 End stage renal disease; I12.0 Hypertensive chronic kidney disease with stage 5 chronic kidney disease or end stage renal disease; D61.818 Other pancytopenia; M86.652 Other chronic osteomyelitis, left thigh; M86.651 Other chronic osteomyelitis, right thigh; R18.8 Other ascites; E72.20 Disorder of urea cycle metabolism, unspecified; E46 Unspecified protein-calorie malnutrition; K76.6 Portal hypertension; C22.0 Liver cell carcinoma; E11.22 Type 2 diabetes mellitus with diabetic chronic kidney disease; E11.649 Type 2 diabetes mellitus with hypoglycemia without coma; E11.69 Type 2 diabetes mellitus with other specified complication; B19.20 Unspecified viral hepatitis C without hepatic coma; N28.1 Cyst of kidney, acquired; G89.29 Other chronic pain; M17.0 Bilateral primary osteoarthritis of knee; K74.60 Unspecified cirrhosis of liver; H70.11 Chronic mastoiditis, right ear; Z53.21 Procedure and treatment not carried out due to patient leaving prior to being seen by health care provider; S09.93XA Unspecified injury of face, initial encounter; W18.30XA Fall on same level, unspecified, initial encounter; Y93.89 Activity, other specified; Y92.89 Other specified places as the place of occurrence of the external cause; Y99.8 Other external cause status; Z99.2 Dependence on renal dialysis; Z79.899 Other long term (current) drug therapy; Z79.84 Long term (current) use of oral hypoglycemic drugs; Z68.23 Body mass index [BMI] 23.0-23.9, adult
CPT/HCPCS: 36415; 70551; 71045; 76700; 80048; 80076; 80305; 80320; 82140; 82607; 82746; 82962; 83036; 83605; 83735; 84100; 84145; 84439; 84443; 84481; 85014; 85018; 85651; 86140; 93005; 93970; 96374; 97162; 97166; 99285; J1815; A4315; G0480

== ENCOUNTER 2019-02-05 21:19 | Inpatient (IN) | payer MEDICARE, OTHER ==
[~2019-02-05] VITALS: Ht 167.6 cm; Wt 68.0 kg
[~2019-02-05 21:19] MED LIST changes: -ATROV3 BOTHNSTRLS; -BACL-141 PO; -HYDR100T26 PO; +IPRA3AMP9 HHN; +KEPP500 MT; +LACT1CAP77 PO; -METO-539 PO; +METR500T MT; -MORP10CA8 PO; -OXYC-515 MT; -TRAZ-213 PO
[2019-02-05 22:16] LABS: MEAN CORPUSCULAR HEMOGLOBIN 34.4 pg (28.0-32.0); MEAN CORPUSCULAR VOLUME 99.1 fL (80.0-94.0); MEAN PLATELET VOLUME 9.5 fl (7.4-10.4); PLATELET 97 x1000/uL (130-400); RED BLOOD CELL COUNT 1.24 mill/uL (4.7-6.1); RED CELL DISTRIBUTION WIDTH 22.5 % (11.6-14.6)
[2019-02-05 22:18] LABS: HEMATOCRIT. 12.3 % (42.0-52.0); HEMOGLOBIN. 4.3 g/dL (14.0-18.0)
[2019-02-05 22:22] LABS: CHLORIDE 109 mEq/L (98-107)
[2019-02-05 22:28] LABS: INR 1.2; PROTHROMBIN TIME 12.5 sec (9.6-11.0)
[2019-02-05] MEDS ORDERED: PANTOPRAZOLE SODIUM 40 MG/VIAL IV SCH (22:45)
[2019-02-05] MEDS ORDERED: PANTOPRAZOLE 80 MG in SODIUM CHLORIDE 0.9% 100 ML IV SCH (22:45)
[2019-02-05] MEDS ORDERED: OXYCODONE HCL 5MG TABLET PO PRN (23:00)
[2019-02-05 23:06] LABS: PLATELET ESTIMATE DECREASED
[2019-02-05] MEDS: PANTOPRAZOLE 80 MG in SODIUM CHLORIDE 0.9% 100 ML IV SCH (23:28)
[2019-02-06] VITALS (14 sets, daily range): BP systolic 115–144; BP diastolic 52–69
[2019-02-06] MEDS: PANTOPRAZOLE 80 MG in SODIUM CHLORIDE 0.9% 100 ML IV SCH (00:15)
[2019-02-06 01:16] LABS: TOTAL IRON BINDING CAPACITY 148 ug/dL (250-450)
[2019-02-06] MEDS: GLIPIZIDE 10MG TABLET PO SCH ×2 (01:52→02:10)
[2019-02-06] MEDS ORDERED: DEXTROSE 50% WATER 50ML SYRINGE IV PRN (08:45)
[2019-02-06] MEDS: BLOOD SUGAR DIAGNOSTIC STRIP TEST SCH ×4 (08:57→21:00)
[2019-02-06] MEDS: INSULIN LISPRO 100 UNITS/ML SUBCUT SCH ×4 (08:58→21:00)
[2019-02-06] MEDS: LISINOPRIL 20MG TABLET PO SCH (09:18)
[2019-02-06] MEDS: CLONIDINE 0.1MG TABLET PO SCH (09:18)
[2019-02-06 09:24] LABS: BASOPHILS % 0.9 % (0.0-2.0); LYMPHOCYTES % 13.7 % (20.0-50.0); MEAN CORPUSCULAR HEMOGLOBIN 33.6 pg (28.0-32.0); MEAN CORPUSCULAR VOLUME 98.5 fL (80.0-94.0); MEAN PLATELET VOLUME 8.4 fl (7.4-10.4); MONOCYTES % 5.5 % (2.0-8.0); NEUTROPHILS % 78.9 % (40.0-76.0); PLATELET 96 x1000/uL (130-400); RED BLOOD CELL COUNT 1.82 mill/uL (4.7-6.1)
[2019-02-06 09:30] LABS: HEMATOCRIT. 17.9 % (42.0-52.0); HEMOGLOBIN. 6.1 g/dL (14.0-18.0)
[2019-02-06] MEDS: THIAMINE HCL 100MG TABLET PO SCH (09:47)
[2019-02-06] MEDS: IPRATROPIUM/ALBUTEROL 0.5-3(2.5)MG/3ML NEB HHN SCH ×3 (09:49→17:35)
[2019-02-06 12:23] LABS: PLATELET ESTIMATE SLIGHTLY DECREASED
[2019-02-06] MEDS: HYDROCODONE/ACETAMINOPHEN 5/325MG TABLET PO PRN (13:33)
[2019-02-06 16:12] LABS: HEMATOCRIT 17.3 % (42.0-52.0); HEMOGLOBIN 5.9 g/dL (14.0-18.0)
[2019-02-06] MEDS: DOCUSATE SODIUM 100MG CAPSULE PO SCH (17:46)
[2019-02-06] MEDS: PANTOPRAZOLE SODIUM 40 MG/VIAL IV SCH (22:52)
[2019-02-06] MEDS: SENNOSIDES 8.6MG TABLET PO SCH (22:52)
[2019-02-07] VITALS (11 sets, daily range): BP systolic 118–156; BP diastolic 64–83
[2019-02-07 00:09] LABS: HEMATOCRIT 19.3 % (42.0-52.0); HEMOGLOBIN 6.7 g/dL (14.0-18.0)
[2019-02-07 07:58] LABS: BASOPHILS % 0.8 % (0.0-2.0); EOSINOPHILS % 3.3 % (0.0-5.0); HEMATOCRIT. 25.8 % (42.0-52.0); HEMOGLOBIN. 8.9 g/dL (14.0-18.0); LYMPHOCYTES % 24.1 % (20.0-50.0); MEAN CORPUSCULAR HEMOGLOBIN 31.8 pg (28.0-32.0); MEAN CORPUSCULAR VOLUME 92.7 fL (80.0-94.0); MEAN PLATELET VOLUME 8.5 fl (7.4-10.4); MONOCYTES % 5.8 % (2.0-8.0); PLATELET 94 x1000/uL (130-400); RED BLOOD CELL COUNT 2.78 mill/uL (4.7-6.1); RED CELL DISTRIBUTION WIDTH 17.7 % (11.6-14.6)
[2019-02-07] MEDS: INSULIN LISPRO 100 UNITS/ML SUBCUT SCH ×4 (08:10→21:00)
[2019-02-07] MEDS: BLOOD SUGAR DIAGNOSTIC STRIP TEST SCH ×4 (08:39→21:00)
[2019-02-07] MEDS: CLONIDINE 0.1MG TABLET PO SCH (08:39)
[2019-02-07] MEDS: DOCUSATE SODIUM 100MG CAPSULE PO SCH ×2 (08:40→17:33)
[2019-02-07] MEDS: MULTIVITAMINS,THER W-MINERALS TABLET PO SCH (08:40)
[2019-02-07] MEDS: THIAMINE HCL 100MG TABLET PO SCH (08:40)
[2019-02-07] MEDS: LISINOPRIL 20MG TABLET PO SCH (08:40)
[2019-02-07] MEDS: PANTOPRAZOLE SODIUM 40 MG/VIAL IV SCH ×2 (08:56→22:59)
[2019-02-07] MEDS: IPRATROPIUM/ALBUTEROL 0.5-3(2.5)MG/3ML NEB HHN SCH ×2 (09:16→12:27)
[2019-02-07] MEDS ORDERED: SIMETHICONE 40 MG/0.6 ML 30ML ONE ×2 (10:29→14:02)
[2019-02-07] MEDS ORDERED: METOCLOPRAMIDE HCL 10MG/2ML VIAL IV NR (12:45)
[2019-02-07] MEDS ORDERED: LIDOCAINE HCL/PF 1% 10 MG/ML 5ML VIAL ONE (13:55)
[2019-02-07] MEDS ORDERED: PROPOFOL 200MG/20ML VIAL IV ONE (13:55)
[2019-02-07] MEDS ORDERED: HYDROMORPHONE HCL/PF 2MG/ML CPJ IV PRN (14:00)
[2019-02-07] MEDS ORDERED: LABETALOL 5MG/ML SYR 20 MG/4 ML SYRINGE IV PRN (14:00)
[2019-02-07] MEDS ORDERED: MEPERIDINE HCL/PF 25MG/ML CPJ IV PRN (14:00)
[2019-02-07] MEDS ORDERED: ONDANSETRON HCL 4MG/2ML INJ IV PRN (14:00)
[2019-02-07] MEDS ORDERED: EPINEPHRINE 0.1MG/ML (1:10,000) 10ML SYR ONE (14:10)
[2019-02-07 15:09] LABS: BG BASE EXCESS -6.6 mmol/L (-2.0-2.0); BG CARBOXYHEMOGLOBIN 0.3 % (0.5-1.5); BG DEOXYHEMOGLOBIN 2.8 % (0.0-5.0); BG HCO3 ACT 16.6 mmol/L (22.0-26.0); BG METHEMOGLOBIN 0.3 % (0.0-1.5); BG OXYGEN SATURATION 97.2 % (92.0-98.5); BG OXYHEMOGLOBIN 96.6 % (94.0-97.0); BG PCO2 26.2 mmHg (35.0-45.0); BG PO2 102.2 mmHg (75.0-100.0); BG SAMPLE SITE RIGHT RADIAL; BG TOTAL HEMOGLOBIN 10.2 g/dL (12.0-18.0); BG VENT MODE ROOM AIR
[2019-02-07] MEDS ORDERED: LABETALOL HCL 5MG/ML VIAL 20ML IV NR (15:19)
[2019-02-07 16:25] LABS: HEMATOCRIT 27.4 % (42.0-52.0); HEMOGLOBIN 9.3 g/dL (14.0-18.0)
[2019-02-07] MEDS: OCTREOTIDE 1,000 MCG in SODIUM CHLORIDE 0.9% 98 ML IV SCH (17:33)
[2019-02-07] MEDS: DEXT 5%/0.9% NACL 1,000 ML IV SCH (17:34)
[2019-02-07] MEDS: SUCRALFATE 1G TABLET PO SCH ×2 (17:50→22:59)
[2019-02-07 17:53] LABS: INR 1.1; PROTHROMBIN TIME 11.4 sec (9.6-11.0)
[2019-02-07] MEDS: SENNOSIDES 8.6MG TABLET PO SCH (22:59)
[2019-02-07] MEDS: DIPHENHYDRAMINE 50MG/ML VIAL IV PRN (22:59)
[2019-02-07 23:58] LABS: HEMATOCRIT 23.1 % (42.0-52.0)
[2019-02-08] VITALS (10 sets, daily range): BP systolic 148–169; BP diastolic 49–87
[2019-02-08] MEDS: BLOOD SUGAR DIAGNOSTIC STRIP TEST SCH ×4 (06:30→21:29)
[2019-02-08 07:10] LABS: BASOPHILS % 1.3 % (0.0-2.0); EOSINOPHILS % 4.1 % (0.0-5.0); HEMATOCRIT. 23.1 % (42.0-52.0); HEMOGLOBIN. 7.9 g/dL (14.0-18.0); LYMPHOCYTES % 22.1 % (20.0-50.0); MEAN CORPUSCULAR HEMOGLOBIN 32.7 pg (28.0-32.0); MEAN CORPUSCULAR VOLUME 95.9 fL (80.0-94.0); MEAN PLATELET VOLUME 8.2 fl (7.4-10.4); MONOCYTES % 5.1 % (2.0-8.0); NEUTROPHILS % 67.4 % (40.0-76.0); PLATELET 73 x1000/uL (130-400); RED BLOOD CELL COUNT 2.41 mill/uL (4.7-6.1); RED CELL DISTRIBUTION WIDTH 18.9 % (11.6-14.6)
[2019-02-08] MEDS: INSULIN LISPRO 100 UNITS/ML SUBCUT SCH ×4 (08:10→21:27)
[2019-02-08] MEDS: PANTOPRAZOLE SODIUM 40 MG/VIAL IV SCH ×2 (09:20→22:25)
[2019-02-08] MEDS: CLONIDINE 0.1MG TABLET PO SCH (09:21)
[2019-02-08] MEDS: DOCUSATE SODIUM 100MG CAPSULE PO SCH ×2 (09:21→17:00)
[2019-02-08] MEDS: SUCRALFATE 1G TABLET PO SCH ×4 (09:21→21:25)
[2019-02-08] MEDS: THIAMINE HCL 100MG TABLET PO SCH (09:21)
[2019-02-08] MEDS: MULTIVITAMINS,THER W-MINERALS TABLET PO SCH (09:22)
[2019-02-08] MEDS: LISINOPRIL 20MG TABLET PO SCH (09:22)
[2019-02-08] MEDS: IPRATROPIUM/ALBUTEROL 0.5-3(2.5)MG/3ML NEB HHN SCH ×4 (09:35→17:40)
[2019-02-08] MEDS: HYDROCODONE/ACETAMINOPHEN 5/325MG TABLET PO PRN ×3 (11:10→22:26)
[2019-02-08] MEDS: PROPRANOLOL HCL 10MG TABLET PO SCH ×2 (12:54→18:00)
[2019-02-08 14:49] LABS: HEMOGLOBIN 9.8 g/dL (14.0-18.0)
[2019-02-08] MEDS: OCTREOTIDE 1,000 MCG in SODIUM CHLORIDE 0.9% 98 ML IV SCH (17:39)
[2019-02-08] MEDS: MORPHINE SULFATE 2 MG/ML CPJ (NOT FOR IM USE) IV PRN (20:32)
[2019-02-08] MEDS: SENNOSIDES 8.6MG TABLET PO SCH (21:00)
[2019-02-08] MEDS: DIPHENHYDRAMINE 50MG/ML VIAL IV PRN (21:24)
[2019-02-09] VITALS: BP 152/54
[2019-02-09 00:59] LABS: HEMATOCRIT 27.6 % (42.0-52.0); HEMOGLOBIN 9.3 g/dL (14.0-18.0)
[2019-02-09] MEDS: PROPRANOLOL HCL 10MG TABLET PO SCH ×4 (01:30→17:45)
[2019-02-09 04:00] VITALS: BP 148/52
[2019-02-09] MEDS: HYDROCODONE/ACETAMINOPHEN 5/325MG TABLET PO PRN ×4 (04:25→22:32)
[2019-02-09] MEDS: DEXT 5%/0.9% NACL 1,000 ML IV SCH ×2 (07:00→09:32)
[2019-02-09] MEDS: BLOOD SUGAR DIAGNOSTIC STRIP TEST SCH ×4 (07:40→21:00)
[2019-02-09 08:00] VITALS: BP 153/77
[2019-02-09] MEDS: INSULIN LISPRO 100 UNITS/ML SUBCUT SCH ×4 (08:10→21:00)
[2019-02-09] MEDS: LISINOPRIL 20MG TABLET PO SCH (09:31)
[2019-02-09] MEDS: THIAMINE HCL 100MG TABLET PO SCH (09:31)
[2019-02-09] MEDS: DOCUSATE SODIUM 100MG CAPSULE PO SCH ×2 (09:31→17:45)
[2019-02-09] MEDS: MULTIVITAMINS,THER W-MINERALS TABLET PO SCH (09:31)
[2019-02-09] MEDS: SUCRALFATE 1G TABLET PO SCH ×4 (09:31→21:00)
[2019-02-09] MEDS: CLONIDINE 0.1MG TABLET PO SCH (09:31)
[2019-02-09] MEDS: DIPHENHYDRAMINE 50MG/ML VIAL IV PRN ×3 (10:09→22:25)
[2019-02-09 11:28] LABS: INR 1.2; PROTHROMBIN TIME 11.8 sec (9.6-11.0)
[2019-02-09 11:35] LABS: HEMATOCRIT 29.9 % (42.0-52.0); HEMOGLOBIN 10.1 g/dL (14.0-18.0)
[2019-02-09 11:56] VITALS: BP 164/66
[2019-02-09 16:00] VITALS: BP 129/39
[2019-02-09 18:34] LABS: BASOPHILS % 1.2 % (0.0-2.0); EOSINOPHILS % 5.3 % (0.0-5.0); LYMPHOCYTES % 19.1 % (20.0-50.0); MEAN CORPUSCULAR HEMOGLOBIN 32.5 pg (28.0-32.0); MEAN CORPUSCULAR VOLUME 92.6 fL (80.0-94.0); MEAN PLATELET VOLUME 7.4 fl (7.4-10.4); MONOCYTES % 6.4 % (2.0-8.0); PLATELET 65 x1000/uL (130-400); RED BLOOD CELL COUNT 2.48 mill/uL (4.7-6.1)
[2019-02-09] MEDS: IPRATROPIUM/ALBUTEROL 0.5-3(2.5)MG/3ML NEB HHN SCH (19:50)
[2019-02-09 20:00] VITALS: BP 176/50
[2019-02-09] MEDS: SENNOSIDES 8.6MG TABLET PO SCH (21:00)
[2019-02-09 23:15] LABS: HEMATOCRIT 24.2 % (42.0-52.0); HEMOGLOBIN 8.5 g/dL (14.0-18.0)
[2019-02-10] VITALS (12 sets, daily range): BP systolic 126–185; BP diastolic 31–86
[2019-02-10] MEDS: IPRATROPIUM/ALBUTEROL 0.5-3(2.5)MG/3ML NEB HHN SCH ×3 (00:22→20:48)
[2019-02-10] MEDS: DEXT 5%/0.9% NACL 1,000 ML IV SCH (04:56)
[2019-02-10] MEDS: HYDROCODONE/ACETAMINOPHEN 5/325MG TABLET PO PRN (05:02)
[2019-02-10] MEDS: CLONIDINE 0.1MG TABLET PO PRN ×2 (05:03→17:17)
[2019-02-10 06:36] LABS: BASOPHILS % 1.2 % (0.0-2.0); HEMATOCRIT. 28.1 % (42.0-52.0); HEMOGLOBIN. 9.3 g/dL (14.0-18.0); LYMPHOCYTES % 24.9 % (20.0-50.0); MEAN CORPUSCULAR HEMOGLOBIN 31.9 pg (28.0-32.0); MEAN CORPUSCULAR VOLUME 96.1 fL (80.0-94.0); MEAN PLATELET VOLUME 7.7 fl (7.4-10.4); MONOCYTES % 5.9 % (2.0-8.0); RED BLOOD CELL COUNT 2.92 mill/uL (4.7-6.1); RED CELL DISTRIBUTION WIDTH 20.5 % (11.6-14.6)
[2019-02-10] MEDS: DIPHENHYDRAMINE 50MG/ML VIAL IV PRN ×3 (06:41→20:24)
[2019-02-10] MEDS: OMEPRAZOLE 20MG CAPSULE EXTENDED RELEASE PO SCH ×2 (07:30→07:40)
[2019-02-10] MEDS: SUCRALFATE 1G TABLET PO SCH ×4 (07:40→20:23)
[2019-02-10] MEDS: BLOOD SUGAR DIAGNOSTIC STRIP TEST SCH ×4 (07:40→20:12)
[2019-02-10] MEDS: INSULIN LISPRO 100 UNITS/ML SUBCUT SCH ×4 (08:10→20:12)
[2019-02-10 08:20] LABS: PLATELET 36 x1000/uL (130-400)
[2019-02-10] MEDS: LISINOPRIL 20MG TABLET PO SCH (09:00)
[2019-02-10] MEDS: DOCUSATE SODIUM 100MG CAPSULE PO SCH ×2 (09:00→17:17)
[2019-02-10] MEDS: THIAMINE HCL 100MG TABLET PO SCH (09:00)
[2019-02-10] MEDS: MULTIVITAMINS,THER W-MINERALS TABLET PO SCH (09:00)
[2019-02-10] MEDS: CLONIDINE 0.1MG TABLET PO SCH (09:00)
[2019-02-10] MEDS: MORPHINE SULFATE 2 MG/ML CPJ (NOT FOR IM USE) IV PRN ×3 (09:31→20:25)
[2019-02-10] MEDS ORDERED: LABETALOL 5MG/ML SYR 20 MG/4 ML SYRINGE IV PRN (10:00)
[2019-02-10] MEDS ORDERED: MEPERIDINE HCL/PF 25MG/ML CPJ IV PRN (10:00)
[2019-02-10] MEDS ORDERED: ONDANSETRON HCL 4MG/2ML INJ IV PRN (10:00)
[2019-02-10] MEDS ORDERED: HYDROMORPHONE HCL/PF 2MG/ML CPJ IV PRN (10:00)
[2019-02-10] MEDS ORDERED: FENTANYL CITRATE/PF 50MCG/ML 2ML VIAL ONE (10:24)
[2019-02-10] MEDS ORDERED: PROPOFOL 200MG/20ML VIAL IV ONE (10:24)
[2019-02-10] MEDS ORDERED: MIDAZOLAM HCL 2 MG/2 ML VIAL ONE (10:24)
[2019-02-10] MEDS ORDERED: DEXAMETHASONE 4MG/ML 1ML VIAL ONE (10:56)
[2019-02-10] MEDS ORDERED: ONDANSETRON HCL 4MG/2ML INJ ONE (10:56)
[2019-02-10 19:24] LABS: HEMATOCRIT 23.8 % (42.0-52.0)
[2019-02-10 20:25] LABS: HEMATOCRIT 23.7 % (42.0-52.0); HEMOGLOBIN 8.1 g/dL (14.0-18.0)
[2019-02-10] MEDS: SENNOSIDES 8.6MG TABLET PO SCH (20:25)
[2019-02-10] MEDS ORDERED: PROPRANOLOL HCL 20MG TABLET PO SCH (21:00)
[2019-02-11 00:04] VITALS: BP 185/54
[2019-02-11] MEDS: DEXT 5%/0.9% NACL 1,000 ML IV SCH ×2 (00:15→18:56)
[2019-02-11] MEDS: CLONIDINE 0.1MG TABLET PO PRN (00:35)
[2019-02-11 04:00] VITALS: BP 166/51
[2019-02-11] MEDS: INSULIN LISPRO 100 UNITS/ML SUBCUT SCH ×4 (07:45→21:00)
[2019-02-11] MEDS: BLOOD SUGAR DIAGNOSTIC STRIP TEST SCH ×4 (07:45→21:29)
[2019-02-11 08:00] VITALS: BP 168/65
[2019-02-11] MEDS: LISINOPRIL 20MG TABLET PO SCH (08:43)
[2019-02-11] MEDS: MULTIVITAMINS,THER W-MINERALS TABLET PO SCH (08:43)
[2019-02-11] MEDS: SUCRALFATE 1G TABLET PO SCH ×4 (08:43→21:00)
[2019-02-11] MEDS: DOCUSATE SODIUM 100MG CAPSULE PO SCH ×2 (08:43→17:00)
[2019-02-11] MEDS: THIAMINE HCL 100MG TABLET PO SCH (08:44)
[2019-02-11] MEDS: OMEPRAZOLE 20MG CAPSULE EXTENDED RELEASE PO SCH (08:49)
[2019-02-11] MEDS: CLONIDINE 0.1MG TABLET PO SCH (08:49)
[2019-02-11] MEDS: DIPHENHYDRAMINE 50MG/ML VIAL IV PRN (10:52)
[2019-02-11 12:00] VITALS: BP 187/64
[2019-02-11] MEDS: LEVETIRACETAM 500 MG in SODIUM CHLORIDE 0.9% 100 ML IV SCH ×2 (14:48→21:28)
[2019-02-11] MEDS: HYDRALAZINE 20MG/ML VIAL IV PRN (14:50)
[2019-02-11] MEDS: IPRATROPIUM/ALBUTEROL 0.5-3(2.5)MG/3ML NEB HHN SCH ×2 (15:15→21:24)
[2019-02-11 16:00] VITALS: BP 161/49
[2019-02-11 17:12] LABS: BASOPHILS % 1.2 % (0.0-2.0); EOSINOPHILS % 3.9 % (0.0-5.0); HEMATOCRIT. 22.5 % (42.0-52.0); HEMOGLOBIN. 7.8 g/dL (14.0-18.0); LYMPHOCYTES % 14.3 % (20.0-50.0); MEAN CORPUSCULAR HEMOGLOBIN 31.9 pg (28.0-32.0); MEAN CORPUSCULAR VOLUME 92.6 fL (80.0-94.0); MEAN PLATELET VOLUME 7.5 fl (7.4-10.4); MONOCYTES % 4.9 % (2.0-8.0); NEUTROPHILS % 75.7 % (40.0-76.0); PLATELET 70 x1000/uL (130-400); RED BLOOD CELL COUNT 2.44 mill/uL (4.7-6.1); RED CELL DISTRIBUTION WIDTH 20.2 % (11.6-14.6)
[2019-02-11] MEDS: PROPRANOLOL HCL 10MG TABLET PO SCH (18:00)
[2019-02-11 20:00] VITALS: BP 143/41
[2019-02-11] MEDS: SENNOSIDES 8.6MG TABLET PO SCH (21:00)
[2019-02-11] MEDS: LACTULOSE 20G/30ML UDC PO SCH (21:00)
[2019-02-12] VITALS (9 sets, daily range): BP systolic 124–196; BP diastolic 43–158
[2019-02-12] MEDS: PROPRANOLOL HCL 10MG TABLET PO SCH ×4 (05:41→19:01)
[2019-02-12] MEDS: LACTULOSE 20G/30ML UDC PO SCH ×3 (05:41→23:29)
[2019-02-12] MEDS: BLOOD SUGAR DIAGNOSTIC STRIP TEST SCH ×4 (05:42→21:00)
[2019-02-12 06:09] LABS: BASOPHILS % 1.2 % (0.0-2.0); EOSINOPHILS % 4.7 % (0.0-5.0); HEMOGLOBIN. 7.1 g/dL (14.0-18.0); LYMPHOCYTES % 21.9 % (20.0-50.0); MEAN CORPUSCULAR HEMOGLOBIN 31.8 pg (28.0-32.0); MEAN CORPUSCULAR VOLUME 93.3 fL (80.0-94.0); MEAN PLATELET VOLUME 7.6 fl (7.4-10.4); MONOCYTES % 6.7 % (2.0-8.0); NEUTROPHILS % 65.5 % (40.0-76.0); PLATELET 66 x1000/uL (130-400); RED BLOOD CELL COUNT 2.24 mill/uL (4.7-6.1); RED CELL DISTRIBUTION WIDTH 20.3 % (11.6-14.6)
[2019-02-12 06:34] LABS: CHLORIDE 114 mEq/L (98-107)
[2019-02-12 06:39] LABS: ETHANOL BLOOD < 10 mg/dL
[2019-02-12 06:43] LABS: T4 FREE 1.05 ng/dL (0.76-1.46)
[2019-02-12 06:46] LABS: FOLIC ACID (FOLATE) SERUM > 20.00 ng/mL (>5.38); VITAMIN B12 SERUM > 2000.0 pg/mL (211-911)
[2019-02-12 06:51] LABS: HEMATOCRIT. 20.9 % (42.0-52.0)
[2019-02-12] MEDS: INSULIN LISPRO 100 UNITS/ML SUBCUT SCH ×4 (07:36→21:00)
[2019-02-12] MEDS: IPRATROPIUM/ALBUTEROL 0.5-3(2.5)MG/3ML NEB HHN SCH ×3 (08:55→21:33)
[2019-02-12] MEDS: RIFAXIMIN 550 MG TABLET PO SCH ×2 (09:00→22:48)
[2019-02-12] MEDS ORDERED: LACTULOSE 300 ML in WATER FOR IRRIGATION,STERILE 700 ML IR SCH (10:00)
[2019-02-12] MEDS: LEVETIRACETAM 500 MG in SODIUM CHLORIDE 0.9% 100 ML IV SCH ×2 (10:05→22:47)
[2019-02-12] MEDS: SUCRALFATE 1G TABLET PO SCH ×4 (12:30→22:47)
[2019-02-12] MEDS: LORAZEPAM 2MG/ML CPJ IV PRN (12:41)
[2019-02-12] MEDS: MULTIVITAMINS,THER W-MINERALS TABLET PO SCH (13:29)
[2019-02-12] MEDS: DOCUSATE SODIUM 100MG CAPSULE PO SCH ×2 (13:29→17:00)
[2019-02-12] MEDS: OMEPRAZOLE 20MG CAPSULE EXTENDED RELEASE PO SCH (13:29)
[2019-02-12] MEDS: THIAMINE HCL 100MG TABLET PO SCH (13:30)
[2019-02-12] MEDS: CLONIDINE 0.1MG TABLET PO SCH (13:30)
[2019-02-12] MEDS: LISINOPRIL 20MG TABLET PO SCH (13:30)
[2019-02-12] MEDS: DEXT 5%/0.9% NACL 1,000 ML IV SCH (18:00)
[2019-02-12 19:10] LABS: HEMOGLOBIN 10.2 g/dL (14.0-18.0)
[2019-02-12] MEDS: ACETAMINOPHEN 650MG/20.3ML UDC NG PRN (21:35)
[2019-02-12 21:40] LABS: HEMATOCRIT. 26.1 % (42.0-52.0); HEMOGLOBIN. 9.1 g/dL (14.0-18.0); MEAN CORPUSCULAR HEMOGLOBIN 31.5 pg (28.0-32.0); MEAN CORPUSCULAR VOLUME 89.8 fL (80.0-94.0); MEAN PLATELET VOLUME 7.5 fl (7.4-10.4); PLATELET 55 x1000/uL (130-400); RED BLOOD CELL COUNT 2.91 mill/uL (4.7-6.1); RED CELL DISTRIBUTION WIDTH 19.2 % (11.6-14.6)
[2019-02-12] MEDS ORDERED: VANCOMYCIN 1500MG in DEXTROSE 5% WATER 250ML IV NR (22:00)
[2019-02-12 22:07] LABS: PLATELET ESTIMATE DECREASED
[2019-02-12] MEDS: SENNOSIDES 8.6MG TABLET PO SCH (22:48)
[2019-02-12] MEDS: CEFTRIAXONE 1 G PREMIX 50 ML IV SCH (23:30)
[2019-02-13] VITALS (13 sets, daily range): BP systolic 105–168; BP diastolic 30–90
[2019-02-13] MEDS: PROPRANOLOL HCL 10MG TABLET PO SCH ×4 (00:48→18:00)
[2019-02-13] MEDS: LACTULOSE 20G/30ML UDC PO SCH ×3 (05:13→21:54)
[2019-02-13] MEDS: BLOOD SUGAR DIAGNOSTIC STRIP TEST SCH ×4 (07:30→21:56)
[2019-02-13 07:51] LABS: EOSINOPHILS % 0.5 % (0.0-5.0); HEMATOCRIT. 22.6 % (42.0-52.0); HEMOGLOBIN. 7.8 g/dL (14.0-18.0); LYMPHOCYTES % 9.8 % (20.0-50.0); MEAN CORPUSCULAR VOLUME 89.5 fL (80.0-94.0); MEAN PLATELET VOLUME 7.6 fl (7.4-10.4); MONOCYTES % 5.5 % (2.0-8.0); NEUTROPHILS % 83.2 % (40.0-76.0); RED BLOOD CELL COUNT 2.53 mill/uL (4.7-6.1); RED CELL DISTRIBUTION WIDTH 20.6 % (11.6-14.6)
[2019-02-13] MEDS: INSULIN LISPRO 100 UNITS/ML SUBCUT SCH ×4 (08:00→21:00)
[2019-02-13 08:11] LABS: PLATELET 51 x1000/uL (130-400)
[2019-02-13] MEDS: IPRATROPIUM/ALBUTEROL 0.5-3(2.5)MG/3ML NEB HHN SCH ×4 (09:00→22:47)
[2019-02-13] MEDS: THIAMINE HCL 100MG TABLET PO SCH (09:20)
[2019-02-13] MEDS: DOCUSATE SODIUM 100MG CAPSULE PO SCH ×2 (09:20→17:00)
[2019-02-13] MEDS: MULTIVITAMINS,THER W-MINERALS TABLET PO SCH (09:26)
[2019-02-13] MEDS: CLONIDINE 0.1MG TABLET PO SCH (09:26)
[2019-02-13] MEDS: LISINOPRIL 20MG TABLET PO SCH (09:26)
[2019-02-13] MEDS: LEVETIRACETAM 500 MG in SODIUM CHLORIDE 0.9% 100 ML IV SCH ×2 (09:27→21:27)
[2019-02-13] MEDS: RIFAXIMIN 550 MG TABLET PO SCH ×2 (09:33→21:54)
[2019-02-13] MEDS: OMEPRAZOLE 20MG CAPSULE EXTENDED RELEASE PO SCH (09:34)
[2019-02-13] MEDS: SUCRALFATE 1G TABLET PO SCH ×4 (09:34→21:54)
[2019-02-13] MEDS: LORAZEPAM 2MG/ML CPJ IV PRN (17:05)
[2019-02-13] MEDS: EPOETIN ALFA 10000UNITS/ML VIAL SUBCUT SCH (21:27)
[2019-02-13] MEDS: SENNOSIDES 8.6MG TABLET PO SCH (21:54)
[2019-02-13] MEDS: CEFTRIAXONE 1 G PREMIX 50 ML IV SCH (22:33)
[2019-02-13] MEDS: DEXT 5%/0.9% NACL 1,000 ML IV SCH (22:40)
[2019-02-14] VITALS (10 sets, daily range): BP systolic 167–210; BP diastolic 79–116
[2019-02-14] LABS: HEMOGLOBIN 6.8 g/dL (14.0-18.0)
[2019-02-14 00:01] LABS: HEMATOCRIT 20.2 % (42.0-52.0)
[2019-02-14] MEDS: LORAZEPAM 2MG/ML CPJ IV PRN ×4 (01:01→23:04)
[2019-02-14] MEDS: PROPRANOLOL HCL 10MG TABLET PO SCH ×4 (05:53→18:46)
[2019-02-14] MEDS: LACTULOSE 20G/30ML UDC PO SCH ×3 (05:53→21:20)
[2019-02-14 06:22] LABS: MEAN CORPUSCULAR HEMOGLOBIN 31.3 pg (28.0-32.0); MEAN CORPUSCULAR VOLUME 92.4 fL (80.0-94.0); MEAN PLATELET VOLUME 8.3 fl (7.4-10.4); RED BLOOD CELL COUNT 2.13 mill/uL (4.7-6.1); RED CELL DISTRIBUTION WIDTH 20.8 % (11.6-14.6)
[2019-02-14 06:30] LABS: HEMATOCRIT. 19.7 % (42.0-52.0); HEMOGLOBIN. 6.7 g/dL (14.0-18.0); PLATELET 42 x1000/uL (130-400)
[2019-02-14] MEDS: OMEPRAZOLE 20MG CAPSULE EXTENDED RELEASE PO SCH (07:30)
[2019-02-14] MEDS: BLOOD SUGAR DIAGNOSTIC STRIP TEST SCH ×4 (07:30→21:01)
[2019-02-14] MEDS: SUCRALFATE 1G TABLET PO SCH ×4 (07:30→21:36)
[2019-02-14] MEDS: IPRATROPIUM/ALBUTEROL 0.5-3(2.5)MG/3ML NEB HHN SCH ×4 (07:47→22:23)
[2019-02-14] MEDS: INSULIN LISPRO 100 UNITS/ML SUBCUT SCH ×4 (08:00→21:20)
[2019-02-14] MEDS: LISINOPRIL 20MG TABLET PO SCH (09:00)
[2019-02-14] MEDS: MULTIVITAMINS,THER W-MINERALS TABLET PO SCH (09:00)
[2019-02-14] MEDS: RIFAXIMIN 550 MG TABLET PO SCH ×2 (09:00→21:20)
[2019-02-14] MEDS: DOCUSATE SODIUM 100MG CAPSULE PO SCH ×2 (09:00→17:00)
[2019-02-14] MEDS: THIAMINE HCL 100MG TABLET PO SCH (09:00)
[2019-02-14] MEDS: CLONIDINE 0.1MG TABLET PO SCH (09:00)
[2019-02-14] MEDS: HYDRALAZINE 20MG/ML VIAL IV PRN ×3 (09:41→23:04)
[2019-02-14 10:10] LABS: PLATELET ESTIMATE MARKEDLY DECREASED
[2019-02-14] MEDS ORDERED: LORAZEPAM 2MG/ML CPJ IV NR (10:30)
[2019-02-14] MEDS: RISPERIDONE 0.5MG TABLET PO SCH (13:23)
[2019-02-14] MEDS: LEVETIRACETAM 500 MG in SODIUM CHLORIDE 0.9% 100 ML IV SCH ×2 (15:23→21:17)
[2019-02-14] MEDS ORDERED: VANCOMYCIN 1500MG in DEXTROSE 5% WATER 250ML IV NR (16:00)
[2019-02-14 16:18] LABS: HEMATOCRIT 24.6 % (42.0-52.0); HEMOGLOBIN 8.5 g/dL (14.0-18.0)
[2019-02-14] MEDS: SENNOSIDES 8.6MG TABLET PO SCH (21:21)
[2019-02-14] MEDS: CEFTRIAXONE 1 G PREMIX 50 ML IV SCH (22:45)
[2019-02-15] VITALS (34 sets, daily range): BP systolic 149–209; BP diastolic 50–113
[2019-02-15] MEDS: PROPRANOLOL HCL 10MG TABLET PO SCH ×4 (00:38→18:15)
[2019-02-15 06:02] LABS: HEMATOCRIT. 23.7 % (42.0-52.0); HEMOGLOBIN. 8.3 g/dL (14.0-18.0); MEAN CORPUSCULAR HEMOGLOBIN 31.3 pg (28.0-32.0); MEAN PLATELET VOLUME 8.1 fl (7.4-10.4); RED BLOOD CELL COUNT 2.64 mill/uL (4.7-6.1); RED CELL DISTRIBUTION WIDTH 17.6 % (11.6-14.6)
[2019-02-15] MEDS: LACTULOSE 20G/30ML UDC PO SCH (06:31)
[2019-02-15] MEDS: OMEPRAZOLE 20MG CAPSULE EXTENDED RELEASE PO SCH ×2 (06:32→16:23)
[2019-02-15] MEDS: SUCRALFATE 1G TABLET PO SCH ×4 (06:32→20:45)
[2019-02-15] MEDS: DEXT 5%/0.9% NACL 1,000 ML IV SCH (06:50)
[2019-02-15] MEDS: INSULIN LISPRO 100 UNITS/ML SUBCUT SCH ×4 (07:25→21:00)
[2019-02-15] MEDS: BLOOD SUGAR DIAGNOSTIC STRIP TEST SCH ×4 (07:25→20:56)
[2019-02-15 08:35] LABS: PLATELET 43 x1000/uL (130-400)
[2019-02-15] MEDS: DOCUSATE SODIUM 100MG CAPSULE PO SCH ×2 (08:42→16:17)
[2019-02-15] MEDS: LEVETIRACETAM 500 MG in SODIUM CHLORIDE 0.9% 100 ML IV SCH ×2 (08:51→20:44)
[2019-02-15] MEDS: CLONIDINE 0.1MG TABLET PO SCH (08:52)
[2019-02-15] MEDS: HYDRALAZINE 20MG/ML VIAL IV PRN ×2 (08:52→15:21)
[2019-02-15] MEDS: MULTIVITAMINS,THER W-MINERALS TABLET PO SCH (08:52)
[2019-02-15] MEDS: LORAZEPAM 2MG/ML CPJ IV PRN (08:52)
[2019-02-15] MEDS: LISINOPRIL 20MG TABLET PO SCH (08:53)
[2019-02-15] MEDS: RISPERIDONE 0.5MG TABLET PO SCH (08:53)
[2019-02-15] MEDS: THIAMINE HCL 100MG TABLET PO SCH (08:53)
[2019-02-15] MEDS: RIFAXIMIN 550 MG TABLET PO SCH ×2 (08:53→20:45)
[2019-02-15] MEDS: IPRATROPIUM/ALBUTEROL 0.5-3(2.5)MG/3ML NEB HHN SCH ×4 (09:38→20:22)
[2019-02-15 11:58] LABS: PLATELET ESTIMATE MARKEDLY DECREASED
[2019-02-15] MEDS: DIPHENHYDRAMINE 50MG/ML VIAL IV PRN (13:13)
[2019-02-15] MEDS ORDERED: HYDRALAZINE HCL 25MG TABLET PO SCH (14:00)
[2019-02-15] MEDS: CLONIDINE 0.1MG TABLET PO PRN (16:22)
[2019-02-15] MEDS: LOSARTAN POTASSIUM 100 MG TABLET PO SCH (16:22)
[2019-02-15] MEDS: SENNOSIDES 8.6MG TABLET PO SCH (20:45)
[2019-02-15] MEDS: EPOETIN ALFA 10000UNITS/ML VIAL SUBCUT SCH (20:45)
[2019-02-15] MEDS: CEFTRIAXONE 1 G PREMIX 50 ML IV SCH (22:21)
[2019-02-15] MEDS: HYDRALAZINE HCL 100MG TABLET PO SCH (22:27)
[2019-02-16] VITALS (12 sets, daily range): BP systolic 105–177; BP diastolic 35–79
[2019-02-16] MEDS: IPRATROPIUM/ALBUTEROL 0.5-3(2.5)MG/3ML NEB HHN SCH ×4 (00:39→20:21)
[2019-02-16] MEDS: PROPRANOLOL HCL 10MG TABLET PO SCH ×5 (01:37→23:11)
[2019-02-16] MEDS: LORAZEPAM 2MG/ML CPJ IV PRN (04:55)
[2019-02-16 05:58] LABS: HEMATOCRIT. 23.5 % (42.0-52.0); MEAN CORPUSCULAR HEMOGLOBIN 30.9 pg (28.0-32.0); MEAN CORPUSCULAR VOLUME 90.9 fL (80.0-94.0); MEAN PLATELET VOLUME 8.1 fl (7.4-10.4); RED BLOOD CELL COUNT 2.59 mill/uL (4.7-6.1)
[2019-02-16] MEDS: SUCRALFATE 1G TABLET PO SCH ×4 (06:23→20:14)
[2019-02-16] MEDS: OMEPRAZOLE 20MG CAPSULE EXTENDED RELEASE PO SCH ×2 (06:23→20:14)
[2019-02-16] MEDS: HYDRALAZINE HCL 100MG TABLET PO SCH ×3 (06:26→21:14)
[2019-02-16 07:54] LABS: PLATELET 42 x1000/uL (130-400)
[2019-02-16] MEDS: INSULIN LISPRO 100 UNITS/ML SUBCUT SCH ×4 (08:00→21:00)
[2019-02-16] MEDS: BLOOD SUGAR DIAGNOSTIC STRIP TEST SCH ×4 (08:15→20:58)
[2019-02-16] MEDS: LEVETIRACETAM 500 MG in SODIUM CHLORIDE 0.9% 100 ML IV SCH ×2 (08:16→21:04)
[2019-02-16] MEDS: LISINOPRIL 20MG TABLET PO SCH (08:17)
[2019-02-16] MEDS: THIAMINE HCL 100MG TABLET PO SCH (08:17)
[2019-02-16] MEDS: LOSARTAN POTASSIUM 100 MG TABLET PO SCH (08:17)
[2019-02-16] MEDS: RISPERIDONE 0.5MG TABLET PO SCH (08:17)
[2019-02-16] MEDS: DOCUSATE SODIUM 100MG CAPSULE PO SCH ×2 (08:17→17:19)
[2019-02-16] MEDS: MULTIVITAMINS,THER W-MINERALS TABLET PO SCH (08:17)
[2019-02-16] MEDS: RIFAXIMIN 550 MG TABLET PO SCH ×2 (08:26→20:58)
[2019-02-16] MEDS: CLONIDINE 0.1MG TABLET PO SCH (08:26)
[2019-02-16] MEDS: ACETAMINOPHEN 650MG/20.3ML UDC NG PRN (11:00)
[2019-02-16 13:30] LABS: PLATELET ESTIMATE MARKEDLY DECREASED
[2019-02-16] MEDS: DIPHENHYDRAMINE 50MG/ML VIAL IV PRN (20:14)
[2019-02-16] MEDS: SENNOSIDES 8.6MG TABLET PO SCH (20:58)
[2019-02-16] MEDS: CEFTRIAXONE 1 G PREMIX 50 ML IV SCH (22:07)
[2019-02-16] MEDS: ONDANSETRON HCL 4MG/2ML INJ IV PRN (23:28)
[2019-02-17] VITALS (36 sets, daily range): BP systolic 75–190; BP diastolic 28–111
[2019-02-17] MEDS: ACETAMINOPHEN 650MG/20.3ML UDC NG PRN (00:08)
[2019-02-17] MEDS: SUCRALFATE 1G TABLET PO SCH ×4 (05:25→21:12)
[2019-02-17] MEDS: OMEPRAZOLE 20MG CAPSULE EXTENDED RELEASE PO SCH ×2 (05:25→21:12)
[2019-02-17 05:47] LABS: BASOPHILS % 0.9 % (0.0-2.0); EOSINOPHILS % 9.7 % (0.0-5.0); HEMATOCRIT. 23.1 % (42.0-52.0); HEMOGLOBIN. 7.8 g/dL (14.0-18.0); LYMPHOCYTES % 33.8 % (20.0-50.0); MEAN CORPUSCULAR HEMOGLOBIN 30.9 pg (28.0-32.0); MEAN CORPUSCULAR VOLUME 91.8 fL (80.0-94.0); MEAN PLATELET VOLUME 9.3 fl (7.4-10.4); MONOCYTES % 13.6 % (2.0-8.0); PLATELET 59 x1000/uL (130-400); RED BLOOD CELL COUNT 2.52 mill/uL (4.7-6.1); RED CELL DISTRIBUTION WIDTH 18.4 % (11.6-14.6)
[2019-02-17] MEDS: HYDRALAZINE HCL 100MG TABLET PO SCH ×3 (06:08→21:12)
[2019-02-17] MEDS: PROPRANOLOL HCL 10MG TABLET PO SCH ×4 (06:09→23:23)
[2019-02-17] MEDS: IPRATROPIUM/ALBUTEROL 0.5-3(2.5)MG/3ML NEB HHN SCH ×5 (07:30→21:00)
[2019-02-17] MEDS: BLOOD SUGAR DIAGNOSTIC STRIP TEST SCH ×4 (07:30→21:16)
[2019-02-17] MEDS: INSULIN LISPRO 100 UNITS/ML SUBCUT SCH ×4 (08:00→21:16)
[2019-02-17] MEDS: LOSARTAN POTASSIUM 100 MG TABLET PO SCH (09:03)
[2019-02-17] MEDS: THIAMINE HCL 100MG TABLET PO SCH (09:03)
[2019-02-17] MEDS: LEVETIRACETAM 500 MG in SODIUM CHLORIDE 0.9% 100 ML IV SCH ×2 (09:03→21:55)
[2019-02-17] MEDS: MULTIVITAMINS,THER W-MINERALS TABLET PO SCH (09:03)
[2019-02-17] MEDS: DOCUSATE SODIUM 100MG CAPSULE PO SCH ×2 (09:03→17:02)
[2019-02-17] MEDS: RISPERIDONE 0.5MG TABLET PO SCH (09:04)
[2019-02-17] MEDS: CLONIDINE 0.1MG TABLET PO SCH (09:04)
[2019-02-17] MEDS: LISINOPRIL 20MG TABLET PO SCH (09:09)
[2019-02-17] MEDS: RIFAXIMIN 550 MG TABLET PO SCH ×2 (09:09→21:19)
[2019-02-17] MEDS ORDERED: VANCOMYCIN 1 G PREMIX 200 ML IV NR (15:00)
[2019-02-17] MEDS: LACTULOSE 20G/30ML UDC PO PRN ×2 (17:02→17:11)
[2019-02-17] MEDS: ONDANSETRON HCL 4MG/2ML INJ IV PRN (21:12)
[2019-02-17] MEDS: CEFTRIAXONE 1 G PREMIX 50 ML IV SCH (21:13)
[2019-02-17] MEDS: SENNOSIDES 8.6MG TABLET PO SCH (21:19)
[2019-02-17] MEDS: CLONIDINE 0.1MG TABLET PO PRN (21:20)
[2019-02-18] VITALS (7 sets, daily range): BP systolic 100–151; BP diastolic 53–79
[2019-02-18 05:34] LABS: BASOPHILS % 0.9 % (0.0-2.0); EOSINOPHILS % 7.9 % (0.0-5.0); HEMATOCRIT. 24.2 % (42.0-52.0); HEMOGLOBIN. 8.2 g/dL (14.0-18.0); LYMPHOCYTES % 47.5 % (20.0-50.0); MEAN CORPUSCULAR HEMOGLOBIN 31.2 pg (28.0-32.0); MEAN CORPUSCULAR VOLUME 91.8 fL (80.0-94.0); MEAN PLATELET VOLUME 9.3 fl (7.4-10.4); MONOCYTES % 11.9 % (2.0-8.0); NEUTROPHILS % 31.8 % (40.0-76.0); RED BLOOD CELL COUNT 2.63 mill/uL (4.7-6.1); RED CELL DISTRIBUTION WIDTH 18.3 % (11.6-14.6)
[2019-02-18] MEDS: HYDRALAZINE HCL 100MG TABLET PO SCH ×2 (05:47→14:00)
[2019-02-18] MEDS: PROPRANOLOL HCL 10MG TABLET PO SCH ×3 (05:47→17:28)
[2019-02-18] MEDS: BLOOD SUGAR DIAGNOSTIC STRIP TEST SCH ×3 (07:30→17:26)
[2019-02-18] MEDS: INSULIN LISPRO 100 UNITS/ML SUBCUT SCH ×3 (08:00→17:26)
[2019-02-18] MEDS: LEVETIRACETAM 500 MG in SODIUM CHLORIDE 0.9% 100 ML IV SCH (09:03)
[2019-02-18] MEDS: RIFAXIMIN 550 MG TABLET PO SCH (09:03)
[2019-02-18] MEDS: MULTIVITAMINS,THER W-MINERALS TABLET PO SCH (09:04)
[2019-02-18] MEDS: LISINOPRIL 20MG TABLET PO SCH (09:04)
[2019-02-18] MEDS: SUCRALFATE 1G TABLET PO SCH ×3 (09:04→17:26)
[2019-02-18] MEDS: THIAMINE HCL 100MG TABLET PO SCH (09:04)
[2019-02-18] MEDS: CLONIDINE 0.1MG TABLET PO SCH (09:04)
[2019-02-18] MEDS: OMEPRAZOLE 20MG CAPSULE EXTENDED RELEASE PO SCH (09:04)
[2019-02-18] MEDS: RISPERIDONE 0.5MG TABLET PO SCH (09:05)
[2019-02-18] MEDS: DOCUSATE SODIUM 100MG CAPSULE PO SCH ×2 (09:05→16:35)
[2019-02-18] MEDS: LOSARTAN POTASSIUM 100 MG TABLET PO SCH (09:05)
[2019-02-18 12:58] LABS: PLATELET 43 x1000/uL (130-400)
[2019-02-18] MEDS ORDERED: VANCOMYCIN 750 MG PREMIX 150 ML IV NR (13:00)
[2019-02-18] MEDS ORDERED: LACTULOSE 20G/30ML UDC PO SCH (14:00)
== END 2019-02-18 18:50 | DRG 987 ==
LOC: ER 21:19 → ENRESERV 22:47 → CANRESERV 22:47 → 7WST 23:48 → EDBEDREQTM 23:49 → EDBEDREQ 23:49 → ENRESERV 02-06 06:07 → 5EST 02-12 11:02
PROVIDERS: ADMIT Family Medicine Adult Medicine; ATTEND Family Medicine Adult Medicine
PROC: 30233N1 Transfusion of Nonautologous Red Blood Cells into Peripheral Vein, Percutaneous Approach (ICD-10-PCS; 2019-02-06)
PROC: 5A1D70Z Performance of Urinary Filtration, Intermittent, Less than 6 Hours Per Day (ICD-10-PCS; 2019-02-08)
PROC: 30233R1 Transfusion of Nonautologous Platelets into Peripheral Vein, Percutaneous Approach (ICD-10-PCS; 2019-02-10)
PROC: 5A1D70Z Performance of Urinary Filtration, Intermittent, Less than 6 Hours Per Day (ICD-10-PCS; 2019-02-10)
PROC: 0PSFXZZ Reposition Right Humeral Shaft, External Approach (ICD-10-PCS; 2019-02-10)
PROC: 3E0G8GC Introduction of Other Therapeutic Substance into Upper GI, Via Natural or Artificial Opening Endoscopic (ICD-10-PCS; 2019-02-10)
PROC: 0SHC08Z Insertion of Spacer into Right Knee Joint, Open Approach (ICD-10-PCS; principal; 2019-02-12)
PROC: 5A1D70Z Performance of Urinary Filtration, Intermittent, Less than 6 Hours Per Day (ICD-10-PCS; 2019-02-12)
PROC: 4A00X4Z Measurement of Central Nervous Electrical Activity, External Approach (ICD-10-PCS; 2019-02-13)
PROC: 5A1D70Z Performance of Urinary Filtration, Intermittent, Less than 6 Hours Per Day (ICD-10-PCS; 2019-02-14)
PROC: 5A1D70Z Performance of Urinary Filtration, Intermittent, Less than 6 Hours Per Day (ICD-10-PCS; 2019-02-17)
DX: K29.01 Acute gastritis with bleeding (principal); L89.153 Pressure ulcer of sacral region, stage 3; E43 Unspecified severe protein-calorie malnutrition; N18.6 End stage renal disease; G92 Toxic encephalopathy; K72.00 Acute and subacute hepatic failure without coma; C22.0 Liver cell carcinoma; I12.0 Hypertensive chronic kidney disease with stage 5 chronic kidney disease or end stage renal disease; K76.6 Portal hypertension; M86.662 Other chronic osteomyelitis, left tibia and fibula; C22.9 Malignant neoplasm of liver, not specified as primary or secondary; T84.028A Dislocation of other internal joint prosthesis, initial encounter; D61.818 Other pancytopenia; B19.20 Unspecified viral hepatitis C without hepatic coma; D50.9 Iron deficiency anemia, unspecified; E11.22 Type 2 diabetes mellitus with diabetic chronic kidney disease; G40.909 Epilepsy, unspecified, not intractable, without status epilepticus; K74.60 Unspecified cirrhosis of liver; M17.0 Bilateral primary osteoarthritis of knee; M19.011 Primary osteoarthritis, right shoulder; M75.101 Unspecified rotator cuff tear or rupture of right shoulder, not specified as traumatic; K31.89 Other diseases of stomach and duodenum; E87.8 Other disorders of electrolyte and fluid balance, not elsewhere classified; E78.00 Pure hypercholesterolemia, unspecified; Z96.611 Presence of right artificial shoulder joint; Z96.653 Presence of artificial knee joint, bilateral; G89.29 Other chronic pain; K59.00 Constipation, unspecified; E11.69 Type 2 diabetes mellitus with other specified complication; R74.0 Nonspecific elevation of levels of transaminase and lactic acid dehydrogenase [LDH]; K20.9 Esophagitis, unspecified; Y83.8 Other surgical procedures as the cause of abnormal reaction of the patient, or of later complication, without mention of misadventure at the time of the procedure; I85.01 Esophageal varices with bleeding; Z68.24 Body mass index [BMI] 24.0-24.9, adult; Z78.1 Physical restraint status; Z85.05 Personal history of malignant neoplasm of liver; Z99.2 Dependence on renal dialysis; Y92.89 Other specified places as the place of occurrence of the external cause
CPT/HCPCS: 36415; 36600; 71045; 73030; 73560; 76000; 80048; 80051; 80202; 80307; 80320; 82105; 82140; 82270; 82375; 82607; 82728; 82746; 82805; 82962; 83036; 83540; 83550; 84134; 84145; 84439; 84443; 84481; 84484; 85014; 85018; 85049; 85384; 86850; 86900; 86920; 92610; 93005; 93306; 94640; 96374; 97110; 97161; 97164; 97166; 97168; 97530; 97535; 99285; A6261; C9113; J0360; J0696; J0885; J1100; J1200; J1815; J1953; J2060; J2250; J2270; J2354; J2405; J2704; J2765; J3010; J3370; J3490; J7040; J7042; J7050; J7060; J7070; J7620; P9016; P9034; G0480

== ENCOUNTER 2019-02-24 18:53 | Inpatient (IN) | payer MEDICARE, OTHER ==
[~2019-02-24] VITALS: Ht 175.3 cm; Wt 72.6 kg
[2019-02-24] MEDS ORDERED: PANTOPRAZOLE SODIUM 40 MG/VIAL IV ONE (20:45)
[2019-02-24] MEDS ORDERED: SODIUM CHLORIDE 0.9% 500 ML IV ONE (21:45)
[2019-02-24 22:19] LABS: BASOPHILS % 3.7 % (0.0-2.0); EOSINOPHILS % 5.8 % (0.0-5.0); LYMPHOCYTES % 27.5 % (20.0-50.0); MEAN CORPUSCULAR HEMOGLOBIN 31.7 pg (28.0-32.0); MEAN CORPUSCULAR VOLUME 95.8 fL (80.0-94.0); MEAN PLATELET VOLUME 7.6 fl (7.4-10.4); MONOCYTES % 8.2 % (2.0-8.0); NEUTROPHILS % 54.8 % (40.0-76.0); PLATELET 87 x1000/uL (130-400); RED BLOOD CELL COUNT 1.76 mill/uL (4.7-6.1); RED CELL DISTRIBUTION WIDTH 21.1 % (11.6-14.6)
[2019-02-24 22:22] LABS: CHLORIDE 110 mEq/L (98-107)
[2019-02-24 22:25] LABS: HEMATOCRIT. 16.9 % (42.0-52.0); HEMOGLOBIN. 5.6 g/dL (14.0-18.0); INR 1.1; PARTIAL THROMBOPLASTIN TIME 28.2 sec (23.4-31.0); PROTHROMBIN TIME 11.4 sec (9.6-11.0)
[2019-02-24 22:41] LABS: TOTAL IRON BINDING CAPACITY 156 ug/dL (250-450)
[2019-02-24 22:56] LABS: CLARITY URINE CLEAR (CLEAR); COLOR URINE YELLOW (YELLOW); KETONES URINE NEGATIVE (NEGATIVE); LEUKOCYTE ESTERASE URINE NEGATIVE (NEGATIVE); NITRITE URINE NEGATIVE (NEGATIVE); OCCULT BLOOD URINE NEGATIVE (NEGATIVE); PH URINE 6.5 (4.5-8.0); PROTEIN URINE 2+ (NEGATIVE); SPECIFIC GRAVITY URINE 1.014 (1.005-1.030); UROBILINOGEN URINE 0.2 E.U./dL (0.2-1.0)
[2019-02-24] MEDS ORDERED: HYDROCODONE/ACETAMINOPHEN 10/325MG TABLET PO PRN (23:00)
[2019-02-24] MEDS ORDERED: ONDANSETRON HCL 4MG/2ML INJ IV PRN (23:00)
[2019-02-24] MEDS ORDERED: MAGNESIUM/ALUMINUM HYDROXIDE/SIMETHICONE 30ML UDC PO PRN (23:00)
[2019-02-24] MEDS ORDERED: MORPHINE SULFATE 2 MG/ML CPJ (NOT FOR IM USE) IV PRN (23:00)
[2019-02-24] MEDS ORDERED: LORAZEPAM 2MG/ML CPJ IV PRN (23:00)
[2019-02-24] MEDS ORDERED: CLONIDINE 0.1MG TABLET PO PRN (23:00)
[2019-02-25] VITALS (11 sets, daily range): BP systolic 119–172; BP diastolic 33–81
[2019-02-25] MEDS: HYDROCODONE/ACETAMINOPHEN 5/325MG TABLET PO PRN ×3 (00:17→18:35)
[2019-02-25] MEDS ORDERED: DEXTROSE 50% WATER 50ML SYRINGE IV PRN (00:30)
[2019-02-25] MEDS: BLOOD SUGAR DIAGNOSTIC STRIP TEST SCH ×4 (07:40→20:52)
[2019-02-25] MEDS: INSULIN LISPRO 100 UNITS/ML SUBCUT SCH ×4 (08:10→21:06)
[2019-02-25] MEDS ORDERED: LISINOPRIL 10MG TABLET PO SCH (09:00)
[2019-02-25] MEDS ORDERED: THIAMINE HCL 100MG TABLET PO SCH (09:00)
[2019-02-25] MEDS ORDERED: FERROUS SULFATE 325MG TABLET PO SCH (09:00)
[2019-02-25 10:29] LABS: INR 1.1; PROTHROMBIN TIME 10.9 sec (9.6-11.0)
[2019-02-25 10:32] LABS: HEMOGLOBIN 6.6 g/dL (14.0-18.0)
[2019-02-25 10:33] LABS: HEMATOCRIT 19.8 % (42.0-52.0)
[2019-02-25] MEDS ORDERED: DIPHENHYDRAMINE 50MG/ML VIAL IM PRN (15:45)
== END 2019-02-25 22:26 | DRG 808 ==
LOC: ER 19:25 → 7WST 22:00 → EDBEDREQTM 22:02 → EDBEDREQ 22:02 → ENRESERV 22:42 → SUPCPDRO 22:55
PROVIDERS: ADMIT Internal Medicine Nephrology; ATTEND Internal Medicine Nephrology
PROC: 5A1D70Z Performance of Urinary Filtration, Intermittent, Less than 6 Hours Per Day (ICD-10-PCS; principal; 2019-02-24)
PROC: 5A1D70Z Performance of Urinary Filtration, Intermittent, Less than 6 Hours Per Day (ICD-10-PCS; 2019-02-25)
PROC: 30233N1 Transfusion of Nonautologous Red Blood Cells into Peripheral Vein, Percutaneous Approach (ICD-10-PCS; 2019-02-25)
DX: D61.818 Other pancytopenia (principal); N18.6 End stage renal disease; I12.0 Hypertensive chronic kidney disease with stage 5 chronic kidney disease or end stage renal disease; M86.8X8 Other osteomyelitis, other site; N17.9 Acute kidney failure, unspecified; R74.0 Nonspecific elevation of levels of transaminase and lactic acid dehydrogenase [LDH]; B19.20 Unspecified viral hepatitis C without hepatic coma; D50.0 Iron deficiency anemia secondary to blood loss (chronic); E11.22 Type 2 diabetes mellitus with diabetic chronic kidney disease; E78.00 Pure hypercholesterolemia, unspecified; Z96.611 Presence of right artificial shoulder joint; M17.0 Bilateral primary osteoarthritis of knee; M21.70 Unequal limb length (acquired), unspecified site; F10.10 Alcohol abuse, uncomplicated; E11.69 Type 2 diabetes mellitus with other specified complication; S43.004A Unspecified dislocation of right shoulder joint, initial encounter; X58.XXXA Exposure to other specified factors, initial encounter; Y93.89 Activity, other specified; Y99.8 Other external cause status; Z85.05 Personal history of malignant neoplasm of liver; Z85.118 Personal history of other malignant neoplasm of bronchus and lung; Z99.2 Dependence on renal dialysis; Z87.19 Personal history of other diseases of the digestive system; Y92.89 Other specified places as the place of occurrence of the external cause; Z79.899 Other long term (current) drug therapy
CPT/HCPCS: 36415; 71045; 81003; 82962; 83540; 83550; 83880; 84484; 85014; 85018; 85044; 85049; 85384; 86850; 86900; 86920; 93005; 97162; 99291; C9113; J1200; J1815; J7040; P9016

== ENCOUNTER 2019-03-01 10:54 | Inpatient (IN) | payer MEDICARE, MEDICAID ==
[~2019-03-01] VITALS: Ht 172.7 cm; Wt 85.9 kg
[2019-03-01 12:10] LABS: CHLORIDE 109 mEq/L (98-107)
[2019-03-01 12:12] LABS: INR 1.1; PROTHROMBIN TIME 11.6 sec (9.6-11.0)
[2019-03-01 12:36] LABS: BASOPHILS % 2.2 % (0.0-2.0); EOSINOPHILS % 4.3 % (0.0-5.0); LYMPHOCYTES % 29.9 % (20.0-50.0); MEAN CORPUSCULAR HEMOGLOBIN 34.5 pg (28.0-32.0); MEAN CORPUSCULAR VOLUME 105.1 fL (80.0-94.0); MEAN PLATELET VOLUME 8.2 fl (7.4-10.4); MONOCYTES % 7.7 % (2.0-8.0); NEUTROPHILS % 55.9 % (40.0-76.0); PLATELET 138 x1000/uL (130-400); RED BLOOD CELL COUNT 1.06 mill/uL (4.7-6.1); RED CELL DISTRIBUTION WIDTH 25.2 % (11.6-14.6)
[2019-03-01 12:41] LABS: HEMOGLOBIN. 3.7 g/dL (14.0-18.0)
[2019-03-01 12:42] LABS: HEMATOCRIT. 11.2 % (42.0-52.0)
[2019-03-01 13:23] LABS: PLATELET ESTIMATE NORMAL
[2019-03-01] MEDS: LACTULOSE 20G/30ML UDC PO SCH (14:30)
[2019-03-01] MEDS ORDERED: OCTREOTIDE 1,000 MCG in SODIUM CHLORIDE 0.9% 98 ML IV SCH (14:30)
[2019-03-01] MEDS: OCTREOTIDE 1,000 MCG in SODIUM CHLORIDE 0.9% 98 ML IV SCH (16:26)
[2019-03-01] MEDS: PANTOPRAZOLE SODIUM 40 MG/VIAL IV SCH (16:26)
[2019-03-01] MEDS: LORAZEPAM 2MG/ML CPJ IV PRN (17:19)
[2019-03-02] VITALS (27 sets, daily range): BP systolic 92–184; BP diastolic 33–92
[2019-03-02 02:15] LABS: HEMATOCRIT 14.8 % (42.0-52.0); HEMOGLOBIN 4.9 g/dL (14.0-18.0)
[2019-03-02] MEDS: LACTULOSE 20G/30ML UDC PO SCH ×3 (06:01→21:26)
[2019-03-02] MEDS: LORAZEPAM 2MG/ML CPJ IV PRN ×2 (06:29→20:07)
[2019-03-02] MEDS: PANTOPRAZOLE SODIUM 40 MG/VIAL IV SCH ×2 (08:15→17:34)
[2019-03-02] MEDS ORDERED: LIDOCAINE HCL 1% 20ML VIAL (Pyxis) INJ ONE (08:32)
[2019-03-02] MEDS ORDERED: SODIUM BICARBONATE 4% (2.4MEQ) 5ML VIAL IV ONE (08:32)
[2019-03-02] MEDS ORDERED: HEPARIN 100 UNITS/1 ML VIAL IVF PRN (09:45)
[2019-03-02 11:34] LABS: CHLORIDE 111 mEq/L (98-107)
[2019-03-02 11:38] LABS: BASOPHILS % 1.4 % (0.0-2.0); EOSINOPHILS % 4.8 % (0.0-5.0); LYMPHOCYTES % 33.7 % (20.0-50.0); MEAN CORPUSCULAR VOLUME 98.4 fL (80.0-94.0); MEAN PLATELET VOLUME 8.1 fl (7.4-10.4); NEUTROPHILS % 53.1 % (40.0-76.0); PLATELET 74 x1000/uL (130-400); RED BLOOD CELL COUNT 1.35 mill/uL (4.7-6.1); RED CELL DISTRIBUTION WIDTH 22.6 % (11.6-14.6)
[2019-03-02 11:41] LABS: TOTAL IRON BINDING CAPACITY 282 ug/dL (250-450)
[2019-03-02 11:45] LABS: HEMATOCRIT. 13.3 % (42.0-52.0); HEMOGLOBIN. 4.3 g/dL (14.0-18.0)
[2019-03-02] MEDS: OCTREOTIDE 1,000 MCG in SODIUM CHLORIDE 0.9% 98 ML IV SCH (13:52)
[2019-03-02] MEDS: MORPHINE SULFATE 2 MG/ML CPJ (NOT FOR IM USE) IV PRN (14:45)
[2019-03-02 20:37] LABS: HEMOGLOBIN 6.1 g/dL (14.0-18.0)
[2019-03-03] VITALS (26 sets, daily range): BP systolic 120–176; BP diastolic 33–125
[2019-03-03] MEDS: LORAZEPAM 2MG/ML CPJ IV PRN ×4 (01:39→22:09)
[2019-03-03] MEDS: MORPHINE SULFATE 2 MG/ML CPJ (NOT FOR IM USE) IV PRN (02:43)
[2019-03-03] MEDS: LACTULOSE 20G/30ML UDC PO SCH ×3 (06:00→21:03)
[2019-03-03] MEDS: OCTREOTIDE 1,000 MCG in SODIUM CHLORIDE 0.9% 98 ML IV SCH (08:15)
[2019-03-03 09:37] LABS: BASOPHILS % 1.4 % (0.0-2.0); EOSINOPHILS % 5.4 % (0.0-5.0); HEMATOCRIT. 22.9 % (42.0-52.0); HEMOGLOBIN. 7.8 g/dL (14.0-18.0); LYMPHOCYTES % 30.8 % (20.0-50.0); MEAN CORPUSCULAR VOLUME 90.7 fL (80.0-94.0); MEAN PLATELET VOLUME 7.4 fl (7.4-10.4); MONOCYTES % 8.8 % (2.0-8.0); NEUTROPHILS % 53.6 % (40.0-76.0); PLATELET 76 x1000/uL (130-400); RED BLOOD CELL COUNT 2.52 mill/uL (4.7-6.1); RED CELL DISTRIBUTION WIDTH 16.3 % (11.6-14.6)
[2019-03-03] MEDS: PANTOPRAZOLE SODIUM 40 MG/VIAL IV SCH ×2 (10:02→16:40)
[2019-03-03] MEDS ORDERED: PROPOFOL 200MG/20ML VIAL IV ONE (10:48)
[2019-03-03] MEDS ORDERED: LIDOCAINE HCL 1% 20ML VIAL (Pyxis) INJ ONE ×2 (10:49→14:07)
[2019-03-03] MEDS ORDERED: KETAMINE HCL 50 MG/ML 10ML ONE (10:58)
[2019-03-03] MEDS ORDERED: SODIUM CHLORIDE 0.9% 10ML VIAL ONE (11:03)
[2019-03-03] MEDS: RIFAXIMIN 550 MG TABLET PO SCH ×2 (14:17→21:03)
[2019-03-03] MEDS: PROPRANOLOL HCL 10MG TABLET PO SCH ×2 (14:23→21:07)
[2019-03-03 16:27] LABS: HEMATOCRIT 22.8 % (42.0-52.0); HEMOGLOBIN 7.7 g/dL (14.0-18.0)
[2019-03-03] MEDS: SUCRALFATE 1G TABLET PO SCH ×2 (16:40→21:08)
[2019-03-04] VITALS (11 sets, daily range): BP systolic 102–180; BP diastolic 32–134
[2019-03-04] MEDS: MORPHINE SULFATE 2 MG/ML CPJ (NOT FOR IM USE) IV PRN (00:18)
[2019-03-04] MEDS: LACTULOSE 20G/30ML UDC PO SCH ×3 (05:29→22:00)
[2019-03-04] MEDS: PROPRANOLOL HCL 10MG TABLET PO SCH ×3 (05:29→22:00)
[2019-03-04 07:13] LABS: BASOPHILS % 1.1 % (0.0-2.0); EOSINOPHILS % 4.5 % (0.0-5.0); HEMATOCRIT. 23.8 % (42.0-52.0); LYMPHOCYTES % 26.1 % (20.0-50.0); MEAN CORPUSCULAR VOLUME 92.1 fL (80.0-94.0); MEAN PLATELET VOLUME 7.4 fl (7.4-10.4); MONOCYTES % 7.7 % (2.0-8.0); NEUTROPHILS % 60.6 % (40.0-76.0); PLATELET 96 x1000/uL (130-400); RED BLOOD CELL COUNT 2.59 mill/uL (4.7-6.1); RED CELL DISTRIBUTION WIDTH 17.9 % (11.6-14.6)
[2019-03-04] MEDS: SUCRALFATE 1G TABLET PO SCH ×4 (09:45→21:00)
[2019-03-04] MEDS: PANTOPRAZOLE SODIUM 40 MG/VIAL IV SCH ×2 (09:45→18:54)
[2019-03-04] MEDS: RIFAXIMIN 550 MG TABLET PO SCH ×2 (09:45→21:00)
[2019-03-04] MEDS ORDERED: DEXTROSE 50% WATER 50ML SYRINGE IV PRN ×2 (16:30)
[2019-03-04] MEDS ORDERED: CLONIDINE 0.1MG TABLET PO PRN (16:45)
[2019-03-04] MEDS: BLOOD SUGAR DIAGNOSTIC STRIP TEST SCH ×2 (17:30→21:00)
[2019-03-04] MEDS: INSULIN LISPRO 100 UNITS/ML SUBCUT SCH ×3 (18:00→22:46)
[2019-03-04 20:27] LABS: HEMATOCRIT 22.8 % (42.0-52.0); HEMOGLOBIN 7.8 g/dL (14.0-18.0)
[2019-03-04] MEDS: LORAZEPAM 2MG/ML CPJ IV PRN (21:12)
[2019-03-05] VITALS (12 sets, daily range): BP systolic 63–160; BP diastolic 39–137
[2019-03-05] MEDS: PROPRANOLOL HCL 10MG TABLET PO SCH ×3 (04:31→21:50)
[2019-03-05] MEDS: LACTULOSE 20G/30ML UDC PO SCH ×3 (05:29→21:43)
[2019-03-05] MEDS: SUCRALFATE 1G TABLET PO SCH ×4 (05:29→21:50)
[2019-03-05] MEDS: BLOOD SUGAR DIAGNOSTIC STRIP TEST SCH ×4 (07:30→21:00)
[2019-03-05] MEDS ORDERED: LORAZEPAM 2MG/ML CPJ IM PRN (09:45)
[2019-03-05] MEDS ORDERED: LIDOCAINE HCL 1% 20ML VIAL (Pyxis) INJ ONE (11:56)
[2019-03-05 14:49] LABS: CHLORIDE 113 mEq/L (98-107)
[2019-03-05] MEDS ORDERED: METOCLOPRAMIDE HCL 10MG/2ML VIAL IV NR ×2 (15:30→19:30)
[2019-03-05] MEDS ORDERED: BISACODYL 5MG TABLET PO NR ×2 (15:30→19:30)
[2019-03-05] MEDS: PANTOPRAZOLE SODIUM 40 MG/VIAL IV SCH ×2 (15:40→18:23)
[2019-03-05] MEDS: RIFAXIMIN 550 MG TABLET PO SCH ×2 (15:41→22:02)
[2019-03-05] MEDS ORDERED: SORBITOL 70% SOLN 30ML PO NR ×2 (16:00→20:00)
[2019-03-05 16:57] LABS: MEAN CORPUSCULAR HEMOGLOBIN 31.2 pg (28.0-32.0); MEAN CORPUSCULAR VOLUME 92.3 fL (80.0-94.0); PLATELET 72 x1000/uL (130-400)
[2019-03-05 16:59] LABS: HEMOGLOBIN 6.3 g/dL (14.0-18.0)
[2019-03-05 17:00] LABS: HEMATOCRIT 18.5 % (42.0-52.0)
[2019-03-05] MEDS: INSULIN LISPRO 100 UNITS/ML SUBCUT SCH (21:00)
[2019-03-05] MEDS: LORAZEPAM 2MG/ML CPJ IV PRN (22:01)
[2019-03-06] VITALS (25 sets, daily range): BP systolic 90–176; BP diastolic 30–82
[2019-03-06] MEDS: MORPHINE SULFATE 2 MG/ML CPJ (NOT FOR IM USE) IV PRN (01:07)
[2019-03-06] MEDS ORDERED: METOCLOPRAMIDE HCL 10MG/2ML VIAL IV NR (03:00)
[2019-03-06] MEDS ORDERED: BISACODYL 5MG TABLET PO NR (03:00)
[2019-03-06] MEDS ORDERED: SORBITOL 70% SOLN 30ML PO NR ×2 (03:30→03:45)
[2019-03-06] MEDS: LACTULOSE 20G/30ML UDC PO SCH ×3 (05:15→21:42)
[2019-03-06] MEDS: PROPRANOLOL HCL 10MG TABLET PO SCH ×3 (05:15→21:42)
[2019-03-06] MEDS: LORAZEPAM 2MG/ML CPJ IV PRN ×2 (05:58→13:05)
[2019-03-06] MEDS: SUCRALFATE 1G TABLET PO SCH ×4 (07:17→21:41)
[2019-03-06] MEDS: INSULIN LISPRO 100 UNITS/ML SUBCUT SCH ×4 (08:00→21:00)
[2019-03-06] MEDS: BLOOD SUGAR DIAGNOSTIC STRIP TEST SCH ×4 (08:29→21:00)
[2019-03-06] MEDS: PANTOPRAZOLE SODIUM 40 MG/VIAL IV SCH ×2 (08:29→16:19)
[2019-03-06] MEDS: RIFAXIMIN 550 MG TABLET PO SCH ×2 (08:30→21:46)
[2019-03-06 09:36] LABS: EOSINOPHILS % 7.2 % (0.0-5.0); HEMATOCRIT. 22.9 % (42.0-52.0); HEMOGLOBIN. 7.7 g/dL (14.0-18.0); LYMPHOCYTES % 36.7 % (20.0-50.0); MEAN CORPUSCULAR HEMOGLOBIN 31.5 pg (28.0-32.0); MEAN CORPUSCULAR VOLUME 93.3 fL (80.0-94.0); MEAN PLATELET VOLUME 7.3 fl (7.4-10.4); MONOCYTES % 8.8 % (2.0-8.0); NEUTROPHILS % 46.3 % (40.0-76.0); PLATELET 63 x1000/uL (130-400); RED BLOOD CELL COUNT 2.45 mill/uL (4.7-6.1); RED CELL DISTRIBUTION WIDTH 18.8 % (11.6-14.6)
[2019-03-06 09:47] LABS: CHLORIDE 116 mEq/L (98-107)
[2019-03-06 09:53] LABS: INR 1.2; PARTIAL THROMBOPLASTIN TIME 26.5 sec (23.4-31.0); PROTHROMBIN TIME 12.3 sec (9.6-11.0)
[2019-03-06] MEDS ORDERED: PROPOFOL 200MG/20ML VIAL IV ONE (10:52)
[2019-03-06] MEDS ORDERED: MIDAZOLAM HCL 5 MG/5 ML VIAL ONE (10:52)
[2019-03-06] MEDS ORDERED: SUCCINYLCHOLINE CHLORIDE 200MG/10ML IV ONE (10:52)
[2019-03-06] MEDS ORDERED: FLUMAZENIL 0.1 MG/ML 5ML VIAL IV ONE (11:23)
[2019-03-06] MEDS ORDERED: HYDROMORPHONE HCL/PF 2MG/ML CPJ IV PRN (12:00)
[2019-03-06] MEDS ORDERED: ONDANSETRON HCL 4MG/2ML INJ IV PRN (12:00)
[2019-03-06] MEDS ORDERED: SODIUM CHLORIDE 0.9% 1,000 ML IV ONE (12:00)
[2019-03-06 17:27] LABS: HEMATOCRIT 28.3 % (42.0-52.0); HEMOGLOBIN 9.6 g/dL (14.0-18.0); MEAN CORPUSCULAR HEMOGLOBIN 31.1 pg (28.0-32.0); MEAN CORPUSCULAR VOLUME 91.4 fL (80.0-94.0); PLATELET 62 x1000/uL (130-400); RED BLOOD CELL COUNT 3.09 mill/uL (4.7-6.1); RED CELL DISTRIBUTION WIDTH 17.2 % (11.6-14.6)
[2019-03-07] VITALS (12 sets, daily range): BP systolic 71–191; BP diastolic 27–164
[2019-03-07] MEDS: PROPRANOLOL HCL 10MG TABLET PO SCH ×3 (04:47→21:54)
[2019-03-07] MEDS: SUCRALFATE 1G TABLET PO SCH ×4 (04:47→21:53)
[2019-03-07] MEDS: LACTULOSE 20G/30ML UDC PO SCH ×4 (04:47→22:00)
[2019-03-07] MEDS: LORAZEPAM 2MG/ML CPJ IV PRN (06:08)
[2019-03-07 06:46] LABS: BASOPHILS % 0.8 % (0.0-2.0); EOSINOPHILS % 8.7 % (0.0-5.0); HEMATOCRIT. 23.2 % (42.0-52.0); HEMOGLOBIN. 7.8 g/dL (14.0-18.0); LYMPHOCYTES % 32.9 % (20.0-50.0); MEAN CORPUSCULAR HEMOGLOBIN 31.4 pg (28.0-32.0); MEAN CORPUSCULAR VOLUME 92.8 fL (80.0-94.0); MONOCYTES % 6.6 % (2.0-8.0); PLATELET 56 x1000/uL (130-400); RED CELL DISTRIBUTION WIDTH 18.6 % (11.6-14.6)
[2019-03-07] MEDS: BLOOD SUGAR DIAGNOSTIC STRIP TEST SCH ×4 (07:30→21:54)
[2019-03-07] MEDS: INSULIN LISPRO 100 UNITS/ML SUBCUT SCH ×4 (08:00→22:13)
[2019-03-07] MEDS: RIFAXIMIN 550 MG TABLET PO SCH ×2 (09:00→21:53)
[2019-03-07] MEDS: DIPHENHYDRAMINE 50MG/ML VIAL IV PRN (11:13)
[2019-03-07] MEDS: MORPHINE SULFATE 2 MG/ML CPJ (NOT FOR IM USE) IV PRN ×2 (12:00→22:03)
[2019-03-07] MEDS: PANTOPRAZOLE SODIUM 40 MG/VIAL IV SCH ×2 (14:34→17:00)
[2019-03-07 19:26] LABS: HEMATOCRIT 24.6 % (42.0-52.0); HEMOGLOBIN 8.3 g/dL (14.0-18.0)
[2019-03-08] VITALS (16 sets, daily range): BP systolic 80–182; BP diastolic 46–164
[2019-03-08] MEDS ORDERED: EPOETIN ALFA 4000UNITS/ML VIAL SUBCUT NR
[2019-03-08] MEDS: DIPHENHYDRAMINE 50MG/ML VIAL IV PRN (01:51)
[2019-03-08] MEDS: MORPHINE SULFATE 2 MG/ML CPJ (NOT FOR IM USE) IV PRN ×3 (03:10→21:39)
[2019-03-08] MEDS: SUCRALFATE 1G TABLET PO SCH ×4 (06:00→21:36)
[2019-03-08] MEDS: PROPRANOLOL HCL 10MG TABLET PO SCH ×3 (06:00→21:38)
[2019-03-08] MEDS: LACTULOSE 20G/30ML UDC PO SCH ×3 (06:00→21:38)
[2019-03-08] MEDS: INSULIN LISPRO 100 UNITS/ML SUBCUT SCH ×4 (08:00→21:00)
[2019-03-08] MEDS: BLOOD SUGAR DIAGNOSTIC STRIP TEST SCH ×4 (08:21→21:38)
[2019-03-08] MEDS: PANTOPRAZOLE SODIUM 40 MG/VIAL IV SCH ×2 (08:21→17:46)
[2019-03-08 08:34] LABS: BASOPHILS % 1.2 % (0.0-2.0); LYMPHOCYTES % 37.9 % (20.0-50.0); MEAN CORPUSCULAR HEMOGLOBIN 31.2 pg (28.0-32.0); MEAN CORPUSCULAR VOLUME 93.3 fL (80.0-94.0); MEAN PLATELET VOLUME 8.2 fl (7.4-10.4); MONOCYTES % 7.1 % (2.0-8.0); NEUTROPHILS % 44.8 % (40.0-76.0); PLATELET 54 x1000/uL (130-400); RED BLOOD CELL COUNT 2.06 mill/uL (4.7-6.1); RED CELL DISTRIBUTION WIDTH 19.4 % (11.6-14.6)
[2019-03-08 08:40] LABS: HEMATOCRIT. 19.2 % (42.0-52.0); HEMOGLOBIN. 6.4 g/dL (14.0-18.0)
[2019-03-08] MEDS: RIFAXIMIN 550 MG TABLET PO SCH ×2 (09:00→21:38)
[2019-03-08] MEDS: HYDROCODONE/ACETAMINOPHEN 5/325MG TABLET PO PRN (14:33)
[2019-03-08 21:22] LABS: HEMATOCRIT 20.8 % (42.0-52.0)
[2019-03-09] VITALS (23 sets, daily range): BP systolic 111–189; BP diastolic 32–130
[2019-03-09] MEDS: MORPHINE SULFATE 2 MG/ML CPJ (NOT FOR IM USE) IV PRN ×3 (02:50→13:56)
[2019-03-09] MEDS: LACTULOSE 20G/30ML UDC PO SCH ×3 (06:00→21:23)
[2019-03-09] MEDS: PROPRANOLOL HCL 10MG TABLET PO SCH ×3 (06:54→21:23)
[2019-03-09] MEDS: SUCRALFATE 1G TABLET PO SCH ×4 (06:59→21:22)
[2019-03-09] MEDS: BLOOD SUGAR DIAGNOSTIC STRIP TEST SCH ×4 (07:30→21:32)
[2019-03-09] MEDS: INSULIN LISPRO 100 UNITS/ML SUBCUT SCH ×4 (08:00→21:00)
[2019-03-09] MEDS: PANTOPRAZOLE SODIUM 40 MG/VIAL IV SCH ×2 (08:01→19:02)
[2019-03-09] MEDS: LORAZEPAM 2MG/ML CPJ IV PRN ×3 (08:02→13:52)
[2019-03-09] MEDS: RIFAXIMIN 550 MG TABLET PO SCH ×2 (08:24→21:22)
[2019-03-09 09:19] LABS: HEMATOCRIT. 21.5 % (42.0-52.0); HEMOGLOBIN. 7.2 g/dL (14.0-18.0); LYMPHOCYTES % 32.7 % (20.0-50.0); MEAN CORPUSCULAR HEMOGLOBIN 31.2 pg (28.0-32.0); MEAN CORPUSCULAR VOLUME 93.5 fL (80.0-94.0); MEAN PLATELET VOLUME 8.4 fl (7.4-10.4); MONOCYTES % 6.2 % (2.0-8.0); NEUTROPHILS % 46.1 % (40.0-76.0); PLATELET 54 x1000/uL (130-400); RED CELL DISTRIBUTION WIDTH 18.9 % (11.6-14.6)
[2019-03-09] MEDS: HYDROCODONE/ACETAMINOPHEN 5/325MG TABLET PO PRN (19:04)
[2019-03-09] MEDS: DIAZEPAM 5 MG TABLET PO SCH (21:23)
[2019-03-10] VITALS (9 sets, daily range): BP systolic 129–160; BP diastolic 36–99
[2019-03-10] MEDS: HYDROCODONE/ACETAMINOPHEN 5/325MG TABLET PO PRN (01:43)
[2019-03-10] MEDS: DIPHENHYDRAMINE 50MG/ML VIAL IV PRN (01:44)
[2019-03-10] MEDS: LACTULOSE 20G/30ML UDC PO SCH ×3 (06:00→22:06)
[2019-03-10] MEDS: SUCRALFATE 1G TABLET PO SCH ×4 (07:06→20:43)
[2019-03-10] MEDS: BLOOD SUGAR DIAGNOSTIC STRIP TEST SCH ×4 (07:07→20:54)
[2019-03-10] MEDS: INSULIN LISPRO 100 UNITS/ML SUBCUT SCH ×4 (08:00→20:54)
[2019-03-10] MEDS: RIFAXIMIN 550 MG TABLET PO SCH ×2 (10:03→20:43)
[2019-03-10] MEDS: DIAZEPAM 5 MG TABLET PO SCH ×2 (10:04→20:43)
[2019-03-10] MEDS: PANTOPRAZOLE SODIUM 40 MG/VIAL IV SCH ×2 (10:16→17:00)
[2019-03-10] MEDS: PROPRANOLOL HCL 10MG TABLET PO SCH ×2 (10:21→20:44)
[2019-03-10] MEDS: MORPHINE SULFATE 2 MG/ML CPJ (NOT FOR IM USE) IV PRN ×2 (10:46→15:49)
[2019-03-10 11:03] LABS: HEMATOCRIT 21.6 % (42.0-52.0); HEMOGLOBIN 7.3 g/dL (14.0-18.0); MEAN CORPUSCULAR HEMOGLOBIN 31.8 pg (28.0-32.0); MEAN CORPUSCULAR VOLUME 94.5 fL (80.0-94.0); PLATELET 75 x1000/uL (130-400); RED BLOOD CELL COUNT 2.28 mill/uL (4.7-6.1); RED CELL DISTRIBUTION WIDTH 19.3 % (11.6-14.6)
[2019-03-11] VITALS (7 sets, daily range): BP systolic 123–153; BP diastolic 51–68
[2019-03-11] MEDS: LACTULOSE 20G/30ML UDC PO SCH ×3 (05:40→23:37)
[2019-03-11] MEDS: SUCRALFATE 1G TABLET PO SCH ×4 (07:30→23:38)
[2019-03-11] MEDS: INSULIN LISPRO 100 UNITS/ML SUBCUT SCH ×4 (07:52→21:00)
[2019-03-11] MEDS: BLOOD SUGAR DIAGNOSTIC STRIP TEST SCH ×4 (07:52→21:00)
[2019-03-11] MEDS: PROPRANOLOL HCL 10MG TABLET PO SCH ×2 (09:00→21:00)
[2019-03-11] MEDS: RIFAXIMIN 550 MG TABLET PO SCH ×2 (09:00→21:00)
[2019-03-11] MEDS: DIAZEPAM 5 MG TABLET PO SCH ×2 (09:00→23:38)
[2019-03-11] MEDS: PANTOPRAZOLE SODIUM 40 MG/VIAL IV SCH ×2 (09:50→18:29)
[2019-03-11] MEDS: MORPHINE SULFATE 2 MG/ML CPJ (NOT FOR IM USE) IV PRN (10:12)
[2019-03-11 13:33] LABS: BASOPHILS % 0.9 % (0.0-2.0); EOSINOPHILS % 10.8 % (0.0-5.0); LYMPHOCYTES % 36.2 % (20.0-50.0); MEAN CORPUSCULAR HEMOGLOBIN 31.8 pg (28.0-32.0); MEAN CORPUSCULAR VOLUME 95.1 fL (80.0-94.0); MEAN PLATELET VOLUME 8.8 fl (7.4-10.4); MONOCYTES % 8.3 % (2.0-8.0); NEUTROPHILS % 43.8 % (40.0-76.0); PLATELET 64 x1000/uL (130-400); RED BLOOD CELL COUNT 1.82 mill/uL (4.7-6.1); RED CELL DISTRIBUTION WIDTH 19.2 % (11.6-14.6)
[2019-03-11 13:47] LABS: HEMOGLOBIN. 5.8 g/dL (14.0-18.0)
[2019-03-11 13:48] LABS: HEMATOCRIT. 17.3 % (42.0-52.0)
[2019-03-12] VITALS (21 sets, daily range): BP systolic 90–136; BP diastolic 32–92
[2019-03-12] MEDS: MORPHINE SULFATE 2 MG/ML CPJ (NOT FOR IM USE) IV PRN ×3 (03:03→18:00)
[2019-03-12] MEDS: LACTULOSE 20G/30ML UDC PO SCH ×4 (05:53→17:00)
[2019-03-12] MEDS: SUCRALFATE 1G TABLET PO SCH ×4 (07:30→21:00)
[2019-03-12] MEDS: BLOOD SUGAR DIAGNOSTIC STRIP TEST SCH ×4 (07:51→21:00)
[2019-03-12] MEDS: INSULIN LISPRO 100 UNITS/ML SUBCUT SCH ×4 (08:00→21:00)
[2019-03-12] MEDS: PANTOPRAZOLE SODIUM 40 MG/VIAL IV SCH ×2 (08:38→17:59)
[2019-03-12] MEDS: RIFAXIMIN 550 MG TABLET PO SCH ×2 (08:39→21:00)
[2019-03-12] MEDS: PROPRANOLOL HCL 10MG TABLET PO SCH ×2 (08:39→21:00)
[2019-03-12] MEDS: DIAZEPAM 5 MG TABLET PO SCH ×2 (08:39→21:00)
[2019-03-12] MEDS: OCTREOTIDE 1,000 MCG in SODIUM CHLORIDE 0.9% 98 ML IV SCH (11:30)
[2019-03-12 14:39] LABS: INR 1.2; MEAN CORPUSCULAR HEMOGLOBIN 31.4 pg (28.0-32.0); MEAN PLATELET VOLUME 8.5 fl (7.4-10.4); PARTIAL THROMBOPLASTIN TIME 26.8 sec (23.4-31.0); PROTHROMBIN TIME 12.3 sec (9.6-11.0); RED BLOOD CELL COUNT 2.03 mill/uL (4.7-6.1); RED CELL DISTRIBUTION WIDTH 18.3 % (11.6-14.6)
[2019-03-12 14:54] LABS: HEMATOCRIT. 18.7 % (42.0-52.0); HEMOGLOBIN. 6.4 g/dL (14.0-18.0)
[2019-03-12 14:55] LABS: PLATELET 46 x1000/uL (130-400)
[2019-03-12 15:46] LABS: PLATELET ESTIMATE MARKEDLY DECREASED
[2019-03-13] VITALS (26 sets, daily range): BP systolic 103–179; BP diastolic 32–93
[2019-03-13] MEDS: INSULIN LISPRO 100 UNITS/ML SUBCUT SCH ×4 (07:56→21:00)
[2019-03-13] MEDS: SUCRALFATE 1G TABLET PO SCH ×4 (07:56→21:00)
[2019-03-13] MEDS: BLOOD SUGAR DIAGNOSTIC STRIP TEST SCH ×4 (07:56→21:30)
[2019-03-13 08:03] LABS: BASOPHILS % 0.5 % (0.0-2.0); EOSINOPHILS % 6.8 % (0.0-5.0); HEMOGLOBIN. 7.6 g/dL (14.0-18.0); LYMPHOCYTES % 41.1 % (20.0-50.0); MEAN CORPUSCULAR HEMOGLOBIN 31.7 pg (28.0-32.0); MEAN CORPUSCULAR VOLUME 91.4 fL (80.0-94.0); MEAN PLATELET VOLUME 8.5 fl (7.4-10.4); NEUTROPHILS % 41.6 % (40.0-76.0); PLATELET 55 x1000/uL (130-400); RED BLOOD CELL COUNT 2.41 mill/uL (4.7-6.1); RED CELL DISTRIBUTION WIDTH 16.4 % (11.6-14.6)
[2019-03-13 08:12] LABS: CHLORIDE 117 mEq/L (98-107)
[2019-03-13] MEDS: PROPRANOLOL HCL 10MG TABLET PO SCH ×2 (09:00→21:00)
[2019-03-13] MEDS: LACTULOSE 20G/30ML UDC PO SCH ×3 (09:00→17:00)
[2019-03-13] MEDS: DIAZEPAM 5 MG TABLET PO SCH ×2 (09:00→21:00)
[2019-03-13] MEDS: RIFAXIMIN 550 MG TABLET PO SCH ×2 (09:00→21:00)
[2019-03-13] MEDS: PANTOPRAZOLE SODIUM 40 MG/VIAL IV SCH ×2 (10:08→17:22)
[2019-03-13] MEDS: HYDROCODONE/ACETAMINOPHEN 5/325MG TABLET PO PRN (10:33)
[2019-03-13] MEDS: OCTREOTIDE 1,000 MCG in SODIUM CHLORIDE 0.9% 98 ML IV SCH (11:12)
[2019-03-13] MEDS ORDERED: CALCIUM GLUCONATE 1,000 MG in DEXT 5% WATER 90 ML IV NR (15:00)
[2019-03-13] MEDS ORDERED: HYDROCODONE/ACETAMINOPHEN 5/325MG TABLET PO PRN (15:15)
[2019-03-13] MEDS ORDERED: ONDANSETRON HCL 4MG/2ML INJ IV PRN (17:00)
[2019-03-13] MEDS ORDERED: CALCIUM CARBONATE 1250MG TABLET (500MG ELEMENTAL CALCIUM) PO SCH (17:00)
[2019-03-13] MEDS ORDERED: EPOETIN ALFA 4000UNITS/ML VIAL SUBCUT SCH (21:00)
[2019-03-13] MEDS: MORPHINE SULFATE 2 MG/ML CPJ (NOT FOR IM USE) IV PRN (21:16)
[2019-03-13] MEDS: CALCIUM CARBONATE 1250MG TABLET (500MG ELEMENTAL CALCIUM) PO SCH (22:15)
[2019-03-14] VITALS (21 sets, daily range): BP systolic 112–187; BP diastolic 29–81
[2019-03-14 02:55] LABS: HEMATOCRIT 25.2 % (42.0-52.0); HEMOGLOBIN 8.7 g/dL (14.0-18.0); MEAN CORPUSCULAR HEMOGLOBIN 31.1 pg (28.0-32.0); MEAN CORPUSCULAR VOLUME 90.5 fL (80.0-94.0); PLATELET 55 x1000/uL (130-400); RED BLOOD CELL COUNT 2.79 mill/uL (4.7-6.1); RED CELL DISTRIBUTION WIDTH 16.1 % (11.6-14.6)
[2019-03-14 03:01] LABS: INR 1.2; PROTHROMBIN TIME 12.3 sec (9.6-11.0)
[2019-03-14 03:07] LABS: PHOSPHORUS 5.5 mg/dL (2.5-4.9)
[2019-03-14] MEDS: MORPHINE SULFATE 2 MG/ML CPJ (NOT FOR IM USE) IV PRN ×3 (03:17→19:56)
[2019-03-14] MEDS: DIPHENHYDRAMINE 50MG/ML VIAL IV PRN ×2 (05:17→17:47)
[2019-03-14] MEDS: SUCRALFATE 1G TABLET PO SCH ×4 (07:30→21:08)
[2019-03-14] MEDS: OCTREOTIDE 1,000 MCG in SODIUM CHLORIDE 0.9% 98 ML IV SCH (07:39)
[2019-03-14] MEDS: BLOOD SUGAR DIAGNOSTIC STRIP TEST SCH ×4 (07:48→21:00)
[2019-03-14] MEDS: INSULIN LISPRO 100 UNITS/ML SUBCUT SCH ×4 (07:48→21:00)
[2019-03-14] MEDS ORDERED: FENTANYL CITRATE/PF 50MCG/ML 2ML VIAL ONE (08:42)
[2019-03-14] MEDS ORDERED: MIDAZOLAM HCL 2 MG/2 ML VIAL ONE (08:42)
[2019-03-14] MEDS ORDERED: DIPHENHYDRAMINE 50MG/ML VIAL ONE (08:42)
[2019-03-14] MEDS ORDERED: PROPOFOL 200MG/20ML VIAL IV ONE (08:48)
[2019-03-14] MEDS ORDERED: SODIUM CHLORIDE 0.9% 10ML VIAL ONE (08:50)
[2019-03-14] MEDS ORDERED: EPHEDRINE SULFATE 50MG/ML VIAL ONE (08:50)
[2019-03-14] MEDS ORDERED: SIMETHICONE 40 MG/0.6 ML 30ML ONE (08:50)
[2019-03-14] MEDS: RIFAXIMIN 550 MG TABLET PO SCH ×2 (09:00→21:08)
[2019-03-14] MEDS: PANTOPRAZOLE SODIUM 40 MG/VIAL IV SCH ×2 (09:00→17:46)
[2019-03-14] MEDS: DIAZEPAM 5 MG TABLET PO SCH ×2 (09:00→21:09)
[2019-03-14] MEDS: PROPRANOLOL HCL 10MG TABLET PO SCH ×2 (09:00→21:09)
[2019-03-14] MEDS: LACTULOSE 20G/30ML UDC PO SCH ×3 (09:00→17:47)
[2019-03-14] MEDS: CALCIUM CARBONATE 1250MG TABLET (500MG ELEMENTAL CALCIUM) PO SCH ×3 (09:00→17:46)
[2019-03-14 14:30] LABS: BASOPHILS % 0.8 % (0.0-2.0); EOSINOPHILS % 8.8 % (0.0-5.0); HEMATOCRIT. 28.2 % (42.0-52.0); HEMOGLOBIN. 9.7 g/dL (14.0-18.0); LYMPHOCYTES % 34.1 % (20.0-50.0); MEAN CORPUSCULAR HEMOGLOBIN 31.4 pg (28.0-32.0); MEAN CORPUSCULAR VOLUME 91.5 fL (80.0-94.0); MEAN PLATELET VOLUME 8.3 fl (7.4-10.4); MONOCYTES % 8.6 % (2.0-8.0); NEUTROPHILS % 47.7 % (40.0-76.0); PLATELET 68 x1000/uL (130-400); RED BLOOD CELL COUNT 3.09 mill/uL (4.7-6.1); RED CELL DISTRIBUTION WIDTH 16.5 % (11.6-14.6)
== END 2019-03-15 02:34 | DRG 559 ==
LOC: ER 10:54 → 5EST 12:16 → EDBEDREQTM 12:21 → EDBEDREQSVC 12:21 → EDBEDREQ 12:21 → ENRESERV 21:43
PROVIDERS: ADMIT Family Medicine Adult Medicine; ATTEND Family Medicine Adult Medicine
PROC: 30233N1 Transfusion of Nonautologous Red Blood Cells into Peripheral Vein, Percutaneous Approach (ICD-10-PCS; 2019-03-01)
PROC: 05H333Z Insertion of Infusion Device into Right Innominate Vein, Percutaneous Approach (ICD-10-PCS; 2019-03-02)
PROC: B54MZZA Ultrasonography of Right Upper Extremity Veins, Guidance (ICD-10-PCS; 2019-03-02)
PROC: 5A1D70Z Performance of Urinary Filtration, Intermittent, Less than 6 Hours Per Day (ICD-10-PCS; 2019-03-02)
PROC: 0RSJXZZ Reposition Right Shoulder Joint, External Approach (ICD-10-PCS; principal; 2019-03-03)
PROC: B54MZZA Ultrasonography of Right Upper Extremity Veins, Guidance (ICD-10-PCS; 2019-03-03)
PROC: 05HY33Z Insertion of Infusion Device into Upper Vein, Percutaneous Approach (ICD-10-PCS; 2019-03-03)
PROC: 0DJ08ZZ Inspection of Upper Intestinal Tract, Via Natural or Artificial Opening Endoscopic (ICD-10-PCS; 2019-03-03)
PROC: 5A1D70Z Performance of Urinary Filtration, Intermittent, Less than 6 Hours Per Day (ICD-10-PCS; 2019-03-04)
PROC: B54MZZA Ultrasonography of Right Upper Extremity Veins, Guidance (ICD-10-PCS; 2019-03-05)
PROC: 05HY33Z Insertion of Infusion Device into Upper Vein, Percutaneous Approach (ICD-10-PCS; 2019-03-05)
PROC: 0DJD8ZZ Inspection of Lower Intestinal Tract, Via Natural or Artificial Opening Endoscopic (ICD-10-PCS; 2019-03-06)
PROC: 5A1D70Z Performance of Urinary Filtration, Intermittent, Less than 6 Hours Per Day (ICD-10-PCS; 2019-03-06)
PROC: 05HY33Z Insertion of Infusion Device into Upper Vein, Percutaneous Approach (ICD-10-PCS; 2019-03-07)
PROC: 5A1D70Z Performance of Urinary Filtration, Intermittent, Less than 6 Hours Per Day (ICD-10-PCS; 2019-03-11)
DX: T84.028A Dislocation of other internal joint prosthesis, initial encounter (principal); N18.6 End stage renal disease; G82.50 Quadriplegia, unspecified; K92.2 Gastrointestinal hemorrhage, unspecified; D62 Acute posthemorrhagic anemia; I12.0 Hypertensive chronic kidney disease with stage 5 chronic kidney disease or end stage renal disease; E46 Unspecified protein-calorie malnutrition; E87.0 Hyperosmolality and hypernatremia; K76.6 Portal hypertension; M86.662 Other chronic osteomyelitis, left tibia and fibula; M86.661 Other chronic osteomyelitis, right tibia and fibula; D61.818 Other pancytopenia; I85.10 Secondary esophageal varices without bleeding; E78.00 Pure hypercholesterolemia, unspecified; B19.20 Unspecified viral hepatitis C without hepatic coma; M17.0 Bilateral primary osteoarthritis of knee; K74.60 Unspecified cirrhosis of liver; E11.22 Type 2 diabetes mellitus with diabetic chronic kidney disease; E87.5 Hyperkalemia; K72.90 Hepatic failure, unspecified without coma; M19.011 Primary osteoarthritis, right shoulder; F19.10 Other psychoactive substance abuse, uncomplicated; K31.89 Other diseases of stomach and duodenum; E11.69 Type 2 diabetes mellitus with other specified complication; Z96.611 Presence of right artificial shoulder joint; G89.4 Chronic pain syndrome; K64.8 Other hemorrhoids; E78.5 Hyperlipidemia, unspecified; M21.70 Unequal limb length (acquired), unspecified site; Y79.2 Prosthetic and other implants, materials and accessory orthopedic devices associated with adverse incidents; Z78.1 Physical restraint status; Z85.05 Personal history of malignant neoplasm of liver; Z87.81 Personal history of (healed) traumatic fracture; Z91.19 Patient's noncompliance with other medical treatment and regimen; Z99.2 Dependence on renal dialysis; Y92.89 Other specified places as the place of occurrence of the external cause; Z79.4 Long term (current) use of insulin; Z79.899 Other long term (current) drug therapy
CPT/HCPCS: 36415; 71045; 73030; 76937; 78278; 80048; 80076; 82040; 82140; 82248; 82330; 82947; 82962; 83540; 83550; 83735; 83880; 84100; 84484; 85014; 85018; 85027; 85049; 86850; 86900; 86920; 86945; 93005; 93971; 97162; 97167; 99285; A4565; A9560; C1725; C9113; J0330; J0610; J0885; J1200; J1815; J2060; J2250; J2270; J2354; J2405; J2704; J2765; J3010; J3490; J7040; J7050; J7060; P9016; P9034